=== PATIENT | male | born 1945 | race Caucasian/White ===

== ENCOUNTER 2016-12-25 14:13 | Inpatient (IN) | payer MEDICARE ==
[~2016-12-25] VITALS: Ht 172.7 cm; Wt 112.7 kg
[2016-12-25] MEDS ORDERED: DIPHTH/TETANUS/ACEL PERTUSSIS (BOOSTER) 0.5 ML VIAL/PFS IM ONE ×2 (14:21→14:45)
[2016-12-25] MEDS ORDERED: ceFAZolin 2 GM PREMIX 50 ML ONE (14:21)
[2016-12-25 14:29] VITALS: O2SAT 96
[2016-12-25 14:37] LABS: I-STAT POTASSIUM 3.8 MMOL/L (3.5-4.9)
[2016-12-25 14:40] LABS: AUTOMATED NEUTROPHIL # 10.3 TH/MM3 (1.8-7.7); BASOPHIL # 0.2 TH/MM3 (0-0.2); BASOPHIL % 1.2 % (0.0-2.0); EOSINOPHIL # 0.2 TH/MM3 (0-0.4); EOSINOPHIL % 1.2 % (0.0-4.0); HEMATOCRIT 43.1 % (39.0-51.0); HEMO FLAGS DIFF FINAL; LYMPH % 21.2 % (9.0-44.0); LYMPHOCYTE # 3.2 TH/MM3 (1.0-4.8); MEAN CELL VOLUME 94.4 FL (80.0-100.0); MEAN CORPUSCULAR HEMOGLOBIN 31.7 PG (27.0-34.0); MEAN CORPUSCULAR HGB CONC 33.6 % (32.0-36.0); MONO % 7.5 % (0.0-8.0); NEUT % 68.9 % (16.0-70.0); PLATELET COUNT 379 TH/MM3 (150-450); RED BLOOD COUNT 4.57 MIL/MM3 (4.50-5.90); RED CELL DISTRIBUTION WIDTH 14.1 % (11.6-17.2); WHITE BLOOD COUNT 14.9 TH/MM3 (4.0-11.0)
[2016-12-25] MEDS ORDERED: ceFAZolin 2 GM PREMIX 50 ML IV ONE (14:45)
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
[2016-12-25 14:49] LABS: APTT (PATIENT) 25.2 SEC (24.3-30.1); PROTHROMBIN TIME - PATIENT 10.6 SEC (9.8-11.6)
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
[2016-12-25] MEDS ORDERED: IOHEXOL 350 MG/ML 10 ML VIAL (for RAD DIAG) IV ONE (14:55)
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
[2016-12-25 15:00] VITALS: PULSE 67
[2016-12-25] MEDS ORDERED: CHLORHEXIDINE GLUCONATE 2 % 1 PACK (2 CLOTHS) TOP PRN (15:00)
[2016-12-25] MEDS ORDERED: SODIUM CHLORIDE 0.9% FLUSH 5 ML FLUSH IV FLUSH PRN (15:00)
[2016-12-25] MEDS ORDERED: MISCELLANEOUS NURSING INFORMATION XX SCH (15:00)
[2016-12-25] MEDS: SODIUM CHLORIDE 0.9% FLUSH 5 ML FLUSH IV FLUSH SCH ×2 (15:00→20:42)
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
[2016-12-25 16:00] VITALS: BP 151/8; PULSE 63; RESP 16; TEMP 98.1; O2SAT 100
[2016-12-25] MEDS: levETIRAcetam INJ 500 MG in SODIUM CHLORIDE 0.9% INJ 100 ML IV SCH ×2 (16:41→20:42)
[2016-12-25] MEDS: SODIUM CHLOR 0.9% 1000 ML INJ 1,000 ML IV SCH (16:41)
[2016-12-25] MEDS: PANTOPRAZOLE SODIUM 40 MG VIAL IV SCH (16:41)
[2016-12-25] MEDS: LIDOCAINE HCL 5% PATCH TD SCH (16:42)
[2016-12-25] MEDS ORDERED: MAGNESIUM HYDROXIDE SUSP 30 ML CUP PO PRN (17:15)
[2016-12-25] MEDS ORDERED: CALCIUM GLUCONATE INJ 1 GM in SODIUM CHLORIDE 0.9% INJ 100 ML IV PRN (17:15)
[2016-12-25] MEDS ORDERED: SODIUM CHLORIDE 0.9% FLUSH 5 ML FLUSH IVF PRN (17:15)
[2016-12-25] MEDS ORDERED: niCARdipine INJ 25 MG in SODIUM CHLOR 0.9% 250 ML INJ 250 ML IV SCH (17:15)
[2016-12-25] MEDS ORDERED: LORazepam 2 MG/ML VIAL IVP PRN (17:15)
[2016-12-25] MEDS ORDERED: MAGNESIUM SULFATE INJ 2 GM in SODIUM CHLORIDE 0.9% INJ 100 ML IV PRN (17:15)
[2016-12-25 18:00] VITALS: PULSE 63
[2016-12-25] MEDS ORDERED: BISACODYL 10 MG SUPP PR PRN (18:00)
[2016-12-25] MEDS ORDERED: cloNIDine HCL 0.1 MG TAB PO PRN (18:00)
[2016-12-25] MEDS ORDERED: ALUMINUM/MAGNESIUM/SIMETH 30 ML CUP PO PRN (18:00)
[2016-12-25] MEDS ORDERED: ONDANSETRON HCL 4 MG/2 ML VIAL IV PRN (18:00)
[2016-12-25] MEDS ORDERED: hydrALAZINE HCL 20 MG/ML VIAL IV PUSH PRN (18:30)
[2016-12-25] MEDS: LABETALOL HCL 100 MG/20 ML VIAL IV PRN ×2 (19:06→20:44)
[2016-12-25 20:00] VITALS: BP 159/78; PULSE 72; PULSE 75; RESP 20; TEMP 98.5; O2SAT 98
[2016-12-25] MEDS: SODIUM CHLORIDE 0.9% FLUSH 5 ML FLUSH IVF SCH (20:42)
[2016-12-25] MEDS: REMOVE OLD PATCH T-DERMAL SCH (20:43)
[2016-12-25] MEDS: MAGNESIUM HYDROXIDE SUSP 30 ML CUP PO SCH (20:43)
[2016-12-25] MEDS: DOCUSATE SODIUM 50 MG/SENNA 8.6 MG TAB PO SCH (20:43)
[2016-12-25] MEDS: BACITRACIN TOP OINT 15 GM TUBE TOP SCH (20:44)
[2016-12-25] MEDS ORDERED: DOCUSATE SODIUM 100 MG CAP PO SCH (21:00)
[2016-12-25] MEDS: METHOCARBAMOL 500 MG TAB PO SCH (21:36)
[2016-12-25 22:00] VITALS: PULSE 80
[2016-12-26] VITALS (13 sets, daily range): BP systolic 148–178; BP diastolic 76–94; PULSE 83–130; RESP 18–24; TEMP 98–99.6; O2SAT 94–97
[2016-12-26] MEDS: SODIUM CHLOR 0.9% 1000 ML INJ 1,000 ML IV SCH ×3 (00:23→20:04)
[2016-12-26] MEDS ORDERED: HALOPERIDOL LACTATE 5 MG/ML AMP IV ONE (02:45)
[2016-12-26] MEDS ORDERED: HALOPERIDOL LACTATE 5 MG/ML AMP IV PRN (03:00)
[2016-12-26] MEDS: CHLORHEXIDINE GLUCONATE 2 % 1 PACK (2 CLOTHS) TOP SCH (03:16)
[2016-12-26] MEDS: HALOPERIDOL LACTATE 5 MG/ML AMP IV PRN ×2 (04:33→20:04)
[2016-12-26 05:12] LABS: AUTOMATED NEUTROPHIL # 9.8 TH/MM3 (1.8-7.7); BASOPHIL % 0.3 % (0.0-2.0); HEMATOCRIT 37.8 % (39.0-51.0); HEMO FLAGS DIFF FINAL; LYMPH % 7.1 % (9.0-44.0); LYMPHOCYTE # 0.9 TH/MM3 (1.0-4.8); MEAN CELL VOLUME 93.3 FL (80.0-100.0); MEAN CORPUSCULAR HEMOGLOBIN 31.4 PG (27.0-34.0); MEAN CORPUSCULAR HGB CONC 33.7 % (32.0-36.0); MONO % 10.6 % (0.0-8.0); PLATELET COUNT 278 TH/MM3 (150-450); RED BLOOD COUNT 4.05 MIL/MM3 (4.50-5.90); RED CELL DISTRIBUTION WIDTH 13.8 % (11.6-17.2)
[2016-12-26] MEDS: METHOCARBAMOL 500 MG TAB PO SCH ×3 (05:17→20:05)
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
[2016-12-26 05:31] LABS: BICARBONATE 26.1 MEQ/L (21.0-32.0); POTASSIUM 3.5 MEQ/L (3.5-5.1)
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
[2016-12-26] MEDS: LACTULOSE SYRUP 20 GM/30 ML CUP PO SCH (09:00)
[2016-12-26] MEDS: DOCUSATE SODIUM 50 MG/SENNA 8.6 MG TAB PO SCH ×2 (09:00→20:05)
[2016-12-26] MEDS: SODIUM CHLORIDE 0.9% FLUSH 5 ML FLUSH IVF SCH ×2 (09:00→20:05)
[2016-12-26] MEDS: LIDOCAINE HCL 5% PATCH TD SCH (09:36)
[2016-12-26] MEDS: PANTOPRAZOLE SODIUM 40 MG VIAL IV SCH (09:37)
[2016-12-26] MEDS: SODIUM CHLORIDE 0.9% FLUSH 5 ML FLUSH IV FLUSH SCH ×2 (09:38→20:04)
[2016-12-26] MEDS: levETIRAcetam INJ 500 MG in SODIUM CHLORIDE 0.9% INJ 100 ML IV SCH ×2 (09:38→20:04)
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
[2016-12-26] MEDS: LABETALOL HCL 100 MG/20 ML VIAL IV PRN ×2 (10:30→17:09)
[2016-12-26] MEDS: BACITRACIN TOP OINT 15 GM TUBE TOP SCH ×2 (10:30→20:05)
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
[2016-12-26] MEDS ORDERED: DOXA1TAB35 PO (17:02)
[2016-12-26] MEDS ORDERED: GABA300C5 PO (17:02)
[2016-12-26] MEDS ORDERED: POTA-243 PO (17:03)
[2016-12-26] MEDS ORDERED: LISI20TA3 PO (17:03)
[2016-12-26] MEDS ORDERED: MIRTA15 PO (17:06)
[2016-12-26] MEDS ORDERED: METF500T PO (17:06)
[2016-12-26] MEDS ORDERED: METO200T3 PO (17:06)
[2016-12-26] MEDS ORDERED: OMEP40CA2 PO (17:07)
[2016-12-26] MEDS ORDERED: VENL150C39 PO (17:07)
[2016-12-26] MEDS ORDERED: ZETI10TA5 PO (17:08)
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
[2016-12-26] MEDS ORDERED: hydrALAZINE HCL 20 MG/ML VIAL IV PUSH SCH (18:00)
[2016-12-26] MEDS ORDERED: DEXTROSE 50% IN WATER 50 ML VIAL(D50) IV PUSH PRN (19:30)
[2016-12-26] MEDS ORDERED: GLUCAGON 1 MG/ML VIAL OTHER PRN (19:30)
[2016-12-26] MEDS: METOPROLOL TARTRATE 5 MG/5 ML VIAL IV PUSH SCH (20:04)
[2016-12-26] MEDS: MAGNESIUM HYDROXIDE SUSP 30 ML CUP PO SCH (20:05)
[2016-12-26] MEDS: INSULIN NovoLIN REGULAR SUPPLEMENTAL SCALE SQ SCH (21:00)
[2016-12-26] MEDS: hydrALAZINE HCL 20 MG/ML VIAL IV PUSH PRN (21:11)
[2016-12-26] MEDS: DEXMEDETOMIDINE 200 MCG/50 ML NS IV SCH (22:24)
[2016-12-26 22:27] LABS: BLOOD GAS BASE EXCESS 1.3 mmol/L (-2-2); BLOOD GAS CARBOXYHEMOGLOBIN 1.6 % (0-4); BLOOD GAS HCO3 24 mmol/L (22-26); BLOOD GAS METHEMOGLOBIN 0.9 % (0-2); BLOOD GAS O2 HGB SATURATION 92 % (90-100); BLOOD GAS OXYGEN CONTENT 16.8 Vol % (12.0-20.0); BLOOD GAS PCO2 31 mmHg (38-42); BLOOD GAS PO2 69 mmHg (61-120); BLOOD GAS TOTAL HGB 12.9 G/DL (12.0-16.0); TEMP CORR TO 98.6
[2016-12-26 22:29] LABS: CRITICAL VALUE YES; DRAW SITE LT RADIAL; FIO2 21 %; NUMBER OF ARTERIAL PUNCTURES 1; OXYGEN DEVICE ROOM AIR; STAT YES; ULNAR PULSE PRESENT
[2016-12-26] MEDS ORDERED: LORazepam 2 MG/ML VIAL IV PUSH ONE (23:15)
[2016-12-26] MEDS: REMOVE OLD PATCH T-DERMAL SCH (23:25)
[2016-12-26] MEDS ORDERED: DEXMEDETOMIDINE IV ONE (23:30)
[2016-12-26] MEDS ORDERED: LORazepam 2 MG/ML VIAL IV PUSH PRN (23:30)
[2016-12-27] VITALS (16 sets, daily range): BP systolic 91–122; BP diastolic 60–74; PULSE 74–130; RESP 14–28; TEMP 97.9–99.1; O2SAT 93–100
[2016-12-27] MEDS: DEXMEDETOMIDINE 200 MCG/50 ML NS IV SCH ×2 (00:55→05:06)
[2016-12-27] MEDS: METOPROLOL TARTRATE 5 MG/5 ML VIAL IV PUSH SCH ×7 (01:05→20:00)
[2016-12-27] MEDS ORDERED: LORazepam 2 MG/ML VIAL IV PRN (01:45)
[2016-12-27] MEDS ORDERED: DILTIAZEM HCL 25 MG/5 ML VIAL IV ONE (01:45)
[2016-12-27] MEDS: CHLORHEXIDINE GLUCONATE 2 % 1 PACK (2 CLOTHS) TOP SCH (05:20)
[2016-12-27] MEDS: METHOCARBAMOL 500 MG TAB PO SCH ×3 (05:20→20:58)
[2016-12-27 06:17] LABS: BASOPHIL % 0.2 % (0.0-2.0); HEMATOCRIT 35.1 % (39.0-51.0); HEMO FLAGS DIFF FINAL; LYMPHOCYTE # 0.9 TH/MM3 (1.0-4.8); MEAN CELL VOLUME 93.8 FL (80.0-100.0); MEAN CORPUSCULAR HEMOGLOBIN 31.4 PG (27.0-34.0); MEAN CORPUSCULAR HGB CONC 33.5 % (32.0-36.0); MONO % 12.5 % (0.0-8.0); NEUT % 79.3 % (16.0-70.0); PLATELET COUNT 192 TH/MM3 (150-450); RED BLOOD COUNT 3.75 MIL/MM3 (4.50-5.90); WHITE BLOOD COUNT 11.3 TH/MM3 (4.0-11.0)
[2016-12-27] MEDS: SODIUM CHLOR 0.9% 1000 ML INJ 1,000 ML IV SCH (06:50)
[2016-12-27 06:53] LABS: ALKALINE PHOSPHATASE 59 U/L (45-117); ALT (GPT) 25 U/L (12-78); ANION GAP 9 MEQ/L (5-15); AST (GOT) 41 U/L (15-37); BICARBONATE 30.5 MEQ/L (21.0-32.0); BLOOD UREA NITROGEN 16 MG/DL (7-18); CHLORIDE 103 MEQ/L (98-107); GLOMERULAR FILTRATION RATE 74 ML/MIN (>89); MAGNESIUM 1.6 MG/DL (1.5-2.5); POTASSIUM 3.3 MEQ/L (3.5-5.1); SODIUM (NA) 142 MEQ/L (136-145)
[2016-12-27] MEDS: INSULIN NovoLIN REGULAR SUPPLEMENTAL SCALE SQ SCH ×6 (07:00→21:00)
[2016-12-27] MEDS ORDERED: DEXMEDETOMIDINE INJ 1,000 MCG in SODIUM CHLOR 0.9% 250 ML INJ 250 ML IV SCH (07:27)
--- NOTE | 2016-12-27 07:27 | RADRPT ---
EXAM DATE/TIME: 12/27/2016 04:40 [facility] COMPARISON: CHEST SINGLE AP, December 25, 2016, 14:09. INDICATIONS : Shortness of breath. MEDICAL HISTORY : None. SURGICAL HISTORY : None. ENCOUNTER: Subsequent ACUITY: 2 days PAIN SCORE: Non-responsive. LOCATION: Bilateral chest FINDINGS: Multiple left rib fractures noted with small extrapleural hematoma. Minimal basilar opacity. No pneum othorax. Heart size normal. CONCLUSION: 1. Multiple rib fracture is with small extrapleural hematoma on the left. No pneumothorax or signific ant effusion. Ori Mathis MD on December 27, 2016 at 7:25 Board Certified Radiologist. This report was verified electronically.
[2016-12-27] MEDS: POTASSIUM CHLOR 20 MEQ PREMIX 100 ML IV PRN (07:42)
[2016-12-27] MEDS: BACITRACIN TOP OINT 15 GM TUBE TOP SCH ×2 (09:00→21:00)
[2016-12-27] MEDS: DOCUSATE SODIUM 50 MG/SENNA 8.6 MG TAB PO SCH ×2 (09:00→21:00)
[2016-12-27] MEDS: SODIUM CHLORIDE 0.9% FLUSH 5 ML FLUSH IVF SCH ×2 (09:00→20:58)
[2016-12-27] MEDS: levETIRAcetam INJ 500 MG in SODIUM CHLORIDE 0.9% INJ 100 ML IV SCH ×2 (09:00→21:00)
[2016-12-27 09:02] LABS: BLOOD GAS BASE EXCESS 4.6 mmol/L (-2-2); BLOOD GAS CARBOXYHEMOGLOBIN 1.8 % (0-4); BLOOD GAS HCO3 28 mmol/L (22-26); BLOOD GAS METHEMOGLOBIN 0.8 % (0-2); BLOOD GAS O2 HGB SATURATION 93 % (90-100); BLOOD GAS OXYGEN CONTENT 14.9 Vol % (12.0-20.0); BLOOD GAS PCO2 40 mmHg (38-42); BLOOD GAS PO2 74 mmHg (61-120); BLOOD GAS TOTAL HGB 11.4 G/DL (12.0-16.0); CRITICAL VALUE NO; DRAW SITE RT RADIAL; LITER FLOW 4 L/M; NUMBER OF ARTERIAL PUNCTURES 1; OXYGEN DEVICE NASAL CANNULA; STAT YES; TEMP CORR TO 98.6; ULNAR PULSE PRESENT
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
[2016-12-27] MEDS: PANTOPRAZOLE SODIUM 40 MG VIAL IV SCH (09:38)
[2016-12-27] MEDS: SODIUM CHLORIDE 0.9% FLUSH 5 ML FLUSH IV FLUSH SCH (09:39)
[2016-12-27] MEDS ORDERED: MULTIVITAMIN INJ 10 ML, THIAMINE INJ 100 MG, FOLIC ACID INJ 1 MG in SODIUM CHLORID 0.9%... IV ONE (10:15)
[2016-12-27] MEDS: LIDOCAINE HCL 5% PATCH TD SCH (10:24)
[2016-12-27] MEDS ORDERED: ROCURONIUM INJ 50 MG/5 ML VIAL ONE (11:19)
[2016-12-27] MEDS ORDERED: ETOMIDATE 20 MG/10 ML VIAL ONE (11:19)
[2016-12-27] MEDS ORDERED: PROPOFOL 1000 MG/100 ML INJ 100 ML ONE (11:22)
[2016-12-27] MEDS ORDERED: AMIODARONE INJ 150 MG in DEXTROSE 5% IN WATER 100ML INJ 97 ML IV ONE ×2 (11:30)
[2016-12-27] MEDS ORDERED: ROCURONIUM INJ 50 MG/5 ML VIAL IV ONE (11:30)
[2016-12-27] MEDS ORDERED: ETOMIDATE 20 MG/10 ML VIAL IV PUSH ONE (11:30)
[2016-12-27] MEDS ORDERED: PROPOFOL 1000 MG/100 ML INJ 100 ML IV SCH (11:30)
[2016-12-27] MEDS ORDERED: AMIODARONE INJ 450 MG in DEXTROSE 5% IN WATE(EXCEL) INJ 250 ML IV SCH ×2 (11:30)
[2016-12-27] MEDS ORDERED: PHENYLEPHRINE HCL 10 MG/ML VIAL ONE (12:01)
--- NOTE | 2016-12-27 12:12 | PD.PROCEDR ---
Central Line Procedure REASON FOR PROCEDURE Central venous access PROCEDURE PERFORMED Central line placement: Left internal jugular vein CONSENT Informed consent for procedure was not obtained as considered emergent due to hypotension and need for IV access. The risks and benefits of the procedure were discussed to include but limited to bleeding, clot formation, infection, and even . ANESTHESIA Local injection of 1% Lidocaine DESCRIPTION OF THE PROCEDURE The patient was placed in supine, mild Trendelenburg position. The area was exposed and cleansed with ChloraPrep, times two. Large sterile drape was used to cover the patient, with the site exposed, under sterile conditions including cap, face mask, sterile gown, and sterile gloves. On single attempt, the introducer needle was inserted with negative pressure in syringe and venous flash was obtained. The guide wire was then advanced without any restriction and the needle was removed. The dilator was used without any complications. Using Seldinger technique the triple-lumen catheter was advanced over the guide wire to a depth of 20 centimeters. The guide wire was removed. All ports were aspirated with dark venous blood return and flushed easily with sterile saline. All ports were capped. Antibiotic disc was placed around central line at puncture site. The central line was secured to the skin with two interrupted 2.0 silk sutures. The area was bandaged with sterile see-through central line bandage. RADIOLOGICAL DATA Ultrasound guidance was used to locate left internal jugular vein. Doppler/ color flow was used to confirm venous flow. COMPLICATIONS: No apparent complications ESTIMATED BLOOD LOSS: Less than 1 cc. Alex Ferrari MD Dec 27, 2016 12:12
--- NOTE | 2016-12-27 12:13 | PD.PROCEDR ---
Procedure Note Procedure DATE: 12/27/2016 PROCEDURE: Orotracheal intubation INDICATION: Acute respiratory failure DETAILS OF PROCEDURE The patient was placed in optimal position and preoxygenated with 100% FiO2 via bag valve mask. At the start oxygen saturation was 100%. The patient was administered 20 mg etomidate IV and 50 mg rocuronium IV. I entered the oropharynx with a size 4 GVL glidescope blade and obtained a grade 3 view of the airway. On single attempt a size 8.0 cuffed endotracheal tube was passed through the vocal cords. Correct tube location was confirmed with end tidal CO2 detector and by auscultating over bilateral lung jarrett. The endotracheal tube was secured with adhesive tape at a depth of 24 cm at the lips. The patient was connected to the ventilator. The patient tolerated the procedure well without any apparent complications. Oxygen saturations were maintained greater than 95% all times. STAT chest x-ray pending at time of dictation. Alex Ferrari MD Dec 27, 2016 12:13
[2016-12-27] MEDS ORDERED: MAGNESIUM SULFATE INJ 2 GM in SODIUM CHLORIDE 0.9% INJ 96 ML IV PRN (12:15)
[2016-12-27] MEDS ORDERED: POTASSIUM PHOSPHATE MONOBASIC 500 MG TAB PO/TUBE PRN (12:15)
[2016-12-27] MEDS ORDERED: MAGNESIUM OXIDE 400 MG TAB PO PRN (12:15)
[2016-12-27] MEDS ORDERED: POTASSIUM CHLOR 20 MEQ PREMIX 100 ML IV PRN ×2 (12:15)
[2016-12-27] MEDS ORDERED: POTASSIUM CHLOR 40 MEQ PREMIX 100 ML IV PRN (12:15)
[2016-12-27] MEDS ORDERED: POTASSIUM PHOSPHATE MONOBASIC 500 MG TAB PO PRN (12:15)
[2016-12-27] MEDS ORDERED: SODIUM PHOSPHATE INJ 30 MMOL in SODIUM CHLOR 0.9% 250 ML INJ 240 ML IV PRN (12:15)
[2016-12-27] MEDS ORDERED: SODIUM CHLORIDE 0.9% FLUSH 5 ML FLUSH IVF PRN (12:15)
[2016-12-27] MEDS ORDERED: MAGNESIUM SULFATE INJ 4 GM in SODIUM CHLORIDE 0.9% INJ 92 ML IV PRN (12:15)
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
[2016-12-27] MEDS ORDERED: POTASSIUM CHLORIDE INJ 40 MEQ in SODIUM CHLORID 0.9% 500 ML INJ 500 ML IV-CENTRAL ONE ×2 (12:30→17:00)
--- NOTE | 2016-12-27 12:35 | RADRPT ---
EXAM DATE/TIME: 12/27/2016 12:08 [place] COMPARISON: CHEST SINGLE AP, December 27, 2016, 4:40. INDICATIONS : Status Post Central Line Placement and Intubation. MEDICAL HISTORY : Unobtainable. SURGICAL HISTORY : Unobtainable. ENCOUNTER: Initial ACUITY: 1 day PAIN SCORE: Non-responsive. LOCATION: Bilateral chest FINDINGS: A single view of the chest demonstrates the lungs to be symmetrically aerated without evidence of mas s, infiltrate or effusion. The endotracheal tube and left-sided central line appear to be in good po sition. There is no pneumothorax. The cardiomediastinal contours are unremarkable. Osseous structure s are intact. CONCLUSION: 1. ET tube and left central line in good position. 2. No pneumothorax. Azeem Clay MD on December 27, 2016 at 12:33 Board Certified Radiologist. This report was verified electronically.
[2016-12-27] MEDS ORDERED: TERBUTALINE INJ 1 MG/ML AMP SQ PRN ×2 (13:00→22:15)
[2016-12-27] MEDS ORDERED: DEXTROSE 50% IN WATER 50 ML VIAL(D50) IV PUSH PRN (13:00)
[2016-12-27] MEDS ORDERED: GLUCAGON 1 MG/ML VIAL OTHER PRN (13:00)
[2016-12-27] MEDS: MAGNESIUM SULFATE 1 GM PREMIX 100 ML IV SCH ×2 (13:40→16:04)
--- NOTE | 2016-12-27 14:35 | EKG ---
Date Performed: 12/27/2016 Time Performed: 08:38:08 PTAGE: 71 years EKG: Atrial flutter with rapid ventricular response Nonspecific ST-T wave changes Abnormal ECG C ompared to prior electrocardiogram,Rate has increased and atrial flutter appears to have replaced atr ial fibrillation. PREVIOUS TRACING : 12/27/2016 01.30 DOCTOR: Jd Bustos Interpretating Date/Time 12/27/2016 14:34:22
--- NOTE | 2016-12-27 14:36 | EKG ---
Date Performed: 12/27/2016 Time Performed: 01:30:00 PTAGE: 71 years EKG: Atrial fibrillation with rapid ventricular response . Nonspecific ST-T wave changes Abnorma l ECG NO PREVIOUS TRACING DOCTOR: Jd Bustos Interpretating Date/Time 12/27/2016 14:34:53
[2016-12-27] MEDS: THIAMINE INJ 100 MG in SODIUM CHLORIDE 0.9% INJ 100 ML IV SCH (15:08)
[2016-12-27 15:11] LABS: BLOOD GAS BASE EXCESS 0.6 mmol/L (-2-2); BLOOD GAS CARBOXYHEMOGLOBIN 1.4 % (0-4); BLOOD GAS HCO3 25 mmol/L (22-26); BLOOD GAS METHEMOGLOBIN 0.8 % (0-2); BLOOD GAS O2 HGB SATURATION 88 % (90-100); BLOOD GAS OXYGEN CONTENT 14.6 Vol % (12.0-20.0); BLOOD GAS PCO2 44 mmHg (38-42); BLOOD GAS PO2 62 mmHg (61-120); BLOOD GAS TOTAL HGB 11.7 G/DL (12.0-16.0); CRITICAL VALUE YES; TEMP CORR TO 98.6
[2016-12-27 15:12] LABS: FIO2 40 %; OXYGEN DEVICE VENTILATOR; VENT SETTINGS PRVC/AC
[2016-12-27 15:13] LABS: DRAW SITE RT RADIAL; NUMBER OF ARTERIAL PUNCTURES 1; STAT NO; ULNAR PULSE PRESENT
[2016-12-27] MEDS: PIPERACIL-TAZO 4.5 GM PREMIX 100 ML IV SCH ×2 (16:04→22:00)
[2016-12-27] MEDS: fentaNYL DRIP 250 ML IV SCH (16:18)
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
[2016-12-27] MEDS: RESP: ALBUTEROL 2.5 MG/IPRATROPIUM 0.5 MG NEB (SCH) NEB (19:44)
[2016-12-27] MEDS: RESP: SODIUM CHLORIDE 3% 4 ML NEB NEB SCH (19:44)
[2016-12-27] MEDS: CHLORHEXIDINE 0.12% (ORAL KIT) 15 ML CUP MT SCH (20:00)
[2016-12-27] MEDS: MAGNESIUM HYDROXIDE SUSP 30 ML CUP PO SCH (20:58)
[2016-12-27] MEDS: REMOVE OLD PATCH T-DERMAL SCH (21:00)
[2016-12-27 21:31] LABS: POTASSIUM 4.4 MEQ/L (3.5-5.1)
[2016-12-27] MEDS ORDERED: Vancomycin Consult Pharmacy 1 EA OTHER SCH (22:00)
[2016-12-27] MEDS ORDERED: SODIUM CHLOR 0.9% 1000 ML INJ 1,000 ML IV ONE (22:00)
[2016-12-27] MEDS ORDERED: VANCOMYCIN 1,000 MG/NS 250 ML IV ONE ×2 (22:15)
[2016-12-27] MEDS ORDERED: NOREPINEPHRINE-DEXTROSE DRIP 250 ML IV SCH (22:15)
--- NOTE | 2016-12-27 23:18 | PD.PROCEDR ---
Procedure Note Procedure DATE: 12/27/2016 Arterial LINE PLACEMENT: Left femoral artery ultrasound-guided INDICATION: Hemodynamic access DESCRIPTION OF THE PROCEDURE The patient was placed in supine position. The skin was cleansed with Chloraprep. Additional barrier precautions included large sterile drape, sterile gloves, sterile gown, face mask, and hat. 1 % lidocaine was used for local anesthesia. Under direct ultrasound guidance and on [] attempt, the vein was accessed with an introducer needle. The guide wire was advanced Using Seldinger technique a 20 [place] 12 cm Angiocath was advanced to a depth of 12 centimeters. The guide wire was removed. The port had return of bright red blood and flushed easily with saline. The arterial line was secured with 2.0 silk. A sterile dressing with antibiotic disc was applied. ESTIMATED BLOOD LOSS: Minimal COMPLICATIONS: No apparent complications. Alex Ferrari MD Dec 27, 2016 23:18
[2016-12-27] MEDS ORDERED: IOHEXOL 350 MG/ML 10 ML VIAL (for RAD DIAG) IV ONE (23:51)
[2016-12-28] VITALS (20 sets, daily range): BP systolic 101–155; BP diastolic 60–79; PULSE 60–155; RESP 22–26; TEMP 98.1–99.8; O2SAT 94–100
[2016-12-28] MEDS: METOPROLOL TARTRATE 5 MG/5 ML VIAL IV PUSH SCH
--- NOTE | 2016-12-28 00:17 | RADRPT ---
EXAM DATE/TIME: 12/27/2016 23:52 [facility] COMPARISON: CT BRAIN W/O CONTRAST, December 26, 2016, 4:55. INDICATIONS : Mental status change. RADIATION DOSE: 56.35 CTDIvol (mGy) MEDICAL HISTORY : Non-responsive. SURGICAL HISTORY : Non-responsive. ENCOUNTER: Subsequent ACUITY: 3 days PAIN SCALE: Non-responsive LOCATION: cranial TECHNIQUE: Multiple contiguous axial images were obtained of the head. Using automated exposure control and adj ustment of the mA and/or kV according to patient size, radiation dose was kept as low as reasonably a chievable to obtain optimal diagnostic quality images. FINDINGS: Compare December 26. There is a new 12 mm hemorrhage in the right temporal region. Evolving parenchymal contusions are present in the left posterior frontal region. Small left subdural hematoma is relative ly stable. Scattered subarachnoid hemorrhage is relatively stable. There is some new hemorrhage layin g dependently in the occipital horns of both lateral ventricles. No significant new mass effect or mi dline shift. CONCLUSION: 1. Compare with December 26. There is new intra-ventricular hemorrhage laying posteriorly in the occipit al horns of the lateral ventricles. There is also a new 12 mm hemorrhage in the right middle cranial fossa. Evolving left frontal parenchymal contusions, subarachnoid hemorrhage and small left subdural hemorrhage again noted without new mass effect or shift. Ori Mathis MD on December 28, 2016 at 0:12 Board Certified Radiologist. This report was verified electronically.
[2016-12-28 00:33] LABS: BLOOD GAS BASE EXCESS -1.2 mmol/L (-2-2); BLOOD GAS CARBOXYHEMOGLOBIN 1.1 % (0-4); BLOOD GAS HCO3 24 mmol/L (22-26); BLOOD GAS METHEMOGLOBIN 0.6 % (0-2); BLOOD GAS O2 HGB SATURATION 95 % (90-100); BLOOD GAS OXYGEN CONTENT 16.4 Vol % (12.0-20.0); BLOOD GAS PCO2 46 mmHg (38-42); BLOOD GAS PO2 86 mmHG (61-120); BLOOD GAS TOTAL HGB 12.2 G/DL (12.0-16.0); TEMP CORR TO 98.6
[2016-12-28 00:34] LABS: CRITICAL VALUE NO; DRAW SITE ART LINE; FIO2 60 %; OXYGEN DEVICE VENTILATOR; STAT YES; VENT SETTINGS PRVC/AC
[2016-12-28] MEDS ORDERED: 3% SALINE INJ 500 ML IV SCH ×2 (00:45→09:59)
--- NOTE | 2016-12-28 01:38 | RADRPT ---
EXAM DATE/TIME: 12/27/2016 23:51 [facility] COMPARISON: No previous studies available for comparison. INDICATIONS : Change in mental status. IV CONTRAST: 95 cc Omnipaque 350 (iohexol) IV ; Cumulative dose for multiple exams. RADIATION DOSE: 17.4 CTDIvol (mGy) ; Combined studies MEDICAL HISTORY : Non-responsive. SURGICAL HISTORY : Non-responsive. ENCOUNTER: Subsequent ACUITY: 3 days PAIN SCALE: Non-responsive LOCATION: cranial TECHNIQUE: Volumetric scanning was performed using a multi-row detector CT scanner. The data was post processed with a variety of visualization algorithms including full volume maximum intensity projection, multi -planar sliding thin slab reformation, curved planar reformation, and surface rendering techniques. Using automated exposure control and adjustment of the mA and/or kV according to patient size, radiat ion dose was kept as low as reasonably achievable to obtain optimal diagnostic quality images. FINDINGS: There is excellent visualization of the major intracranial arteries out to the second-order branch ve ssels. There is no evidence for aneurysm, vessel truncation or stenosis, and no evidence for vascula r malformation. Patient is intubated with endotracheal tube in satisfactory position. NG also present. Right pleural effusion noted incidentally. Mild emphysema in the upper lungs. See head CT for findings of intracran ial hemorrhage. CONCLUSION: 1. No aneurysm or arterial vascular occlusions identified. There is intracranial hemorrhage. See rece nt head CT. Ori Mathis MD on December 28, 2016 at 1:31 Board Certified Radiologist. This report was verified electronically.
[2016-12-28 01:40] LABS: AUTOMATED NEUTROPHIL # 15.1 TH/MM3 (1.8-7.7); BASOPHIL # 0.1 TH/MM3 (0-0.2); BASOPHIL % 0.8 % (0.0-2.0); EOSINOPHIL % 0.1 % (0.0-4.0); HEMATOCRIT 33.6 % (39.0-51.0); HEMO FLAGS DIFF FINAL; LYMPH % 6.5 % (9.0-44.0); LYMPHOCYTE # 1.2 TH/MM3 (1.0-4.8); MEAN CELL VOLUME 94.5 FL (80.0-100.0); MEAN CORPUSCULAR HEMOGLOBIN 31.4 PG (27.0-34.0); MEAN CORPUSCULAR HGB CONC 33.3 % (32.0-36.0); MONO % 10.7 % (0.0-8.0); NEUT % 81.9 % (16.0-70.0); PLATELET COUNT 266 TH/MM3 (150-450); RED BLOOD COUNT 3.55 MIL/MM3 (4.50-5.90); WHITE BLOOD COUNT 18.5 TH/MM3 (4.0-11.0)
--- NOTE | 2016-12-28 01:43 | RADRPT ---
EXAM DATE/TIME: 12/27/2016 23:51 [facility] COMPARISON: No previous studies available for comparison. INDICATIONS : Change in mental status. IV CONTRAST: 95 cc Omnipaque 350 (iohexol) IV ; Cumulative dose for multiple exams. RADIATION DOSE: 17.4 CTDIvol (mGy) ; Combined studies MEDICAL HISTORY : Non-responsive. SURGICAL HISTORY : Non-responsive. ENCOUNTER: Subsequent ACUITY: 3 days PAIN SCALE: Non-responsive LOCATION: neck Elevated flow velocities and ICA/CCA ratios have been found to correlate with increased degrees of vessel stenosis, calculated as percentage of diameter relative to a normal segment of distal ICA/CCA. TECHNIQUE: Volumetric scanning was performed using a multirow detector CT scanner. The data was post processed with a variety of visualization algorithms including full-volume maximum intensity projection, multip lanar sliding thin-slab reformation, curved-planar reformation, and surface-rendering techniques. Us ing automated exposure control and adjustment of the mA and/or kV according to patient size, radiatio n dose was kept as low as reasonably achievable to obtain optimal diagnostic quality images. FINDINGS: There is mild atherosclerotic changes in the carotid arteries bilaterally, predominantly around carot id bifurcation. There is no carotid stenosis. Both vertebral arteries are patent in the neck. The rig ht internal carotid artery is tortuous and passes medially to the midline retropharyngeal region. Pat ient is intubated with NG tube present. There is a small right-sided pleural effusion in apex. Left-sided central line is present. CONCLUSION: 1. Mild carotid atherosclerosis. No carotid stenosis. Vertebral arteries patent in the neck. Ori Mathis MD on December 28, 2016 at 1:39 Board Certified Radiologist. This report was verified electronically.
[2016-12-28] MEDS: CHLORHEXIDINE GLUCONATE 2 % 1 PACK (2 CLOTHS) TOP SCH (02:01)
[2016-12-28] MEDS: METHOCARBAMOL 500 MG TAB PO SCH ×3 (02:27→23:16)
[2016-12-28] MEDS: SODIUM CHLOR 0.9% 1000 ML INJ 1,000 ML IV SCH ×3 (02:28→23:17)
[2016-12-28 02:45] LABS: BICARBONATE 25.1 MEQ/L (21.0-32.0); CALCIUM-PROTEIN CORRECTED 8.1 MG/DL (8.5-10.1); MAGNESIUM 2.1 MG/DL (1.5-2.5); POTASSIUM 3.9 MEQ/L (3.5-5.1)
[2016-12-28] MEDS: RESP: ALBUTEROL 2.5 MG/IPRATROPIUM 0.5 MG NEB (SCH) NEB ×4 (04:49→21:02)
[2016-12-28] MEDS: RESP: SODIUM CHLORIDE 3% 4 ML NEB NEB SCH ×5 (04:49→21:02)
[2016-12-28 05:58] LABS: BLOOD GAS CARBOXYHEMOGLOBIN 1.4 % (0-4); BLOOD GAS HCO3 22 mmol/L (22-26); BLOOD GAS O2 HGB SATURATION 97 % (90-100); BLOOD GAS OXYGEN CONTENT 15.7 Vol % (12.0-20.0); BLOOD GAS PCO2 34 mmHg (38-42); BLOOD GAS PO2 167 mmHg (61-120); BLOOD GAS TOTAL HGB 11.3 G/DL (12.0-16.0); CRITICAL VALUE NO; DRAW SITE ART LINE; FIO2 60 %; OXYGEN DEVICE VENTILATOR; STAT NO; TEMP CORR TO 98.6; VENT SETTINGS PRVC/AC
[2016-12-28] MEDS: PIPERACIL-TAZO 4.5 GM PREMIX 100 ML IV SCH ×3 (06:00→22:29)
[2016-12-28] MEDS: INSULIN NovoLIN REGULAR SUPPLEMENTAL SCALE SQ SCH ×5 (06:08→21:00)
--- NOTE | 2016-12-28 06:33 | RADRPT ---
EXAM DATE/TIME: 12/28/2016 05:02 [facility] COMPARISON: CHEST SINGLE AP, December 27, 2016, 12:08. INDICATIONS : Shortness of breath. MEDICAL HISTORY : None. SURGICAL HISTORY : None. ENCOUNTER: Subsequent ACUITY: 4 - 6 days PAIN SCORE: Non-responsive. LOCATION: Bilateral chest FINDINGS: Endotracheal tube has been positioned. NG enters stomach. A left central line in superior vena cava. Mild cardiomegaly. Basilar airspace disease increased from December 27. CONCLUSION: 1. Increase in basilar airspace disease from December 27 with small pleural effusions. Placement of naso gastric tube with tip in stomach. Endotracheal tube and left central line unchanged. Ori Mathis MD on December 28, 2016 at 6:30 Board Certified Radiologist. This report was verified electronically.
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
[2016-12-28] MEDS: THIAMINE INJ 100 MG in SODIUM CHLORIDE 0.9% INJ 100 ML IV SCH (09:00)
[2016-12-28] MEDS: LACTULOSE SYRUP 20 GM/30 ML CUP PO SCH (09:00)
[2016-12-28] MEDS: LIDOCAINE HCL 5% PATCH TD SCH (09:00)
[2016-12-28] MEDS: BACITRACIN TOP OINT 15 GM TUBE TOP SCH ×2 (09:00→21:00)
[2016-12-28] MEDS: BISACODYL 10 MG SUPP RECTAL SCH ×2 (09:00→10:51)
[2016-12-28] MEDS ORDERED: POTASSIUM PHOSPHATE INJ 30 MMOL in SODIUM CHLOR 0.9% 250 ML INJ 250 ML IV ONE (10:00)
[2016-12-28] MEDS ORDERED: MINERAL OIL LIQUID 30 ML CUP PO ONE (10:00)
[2016-12-28] MEDS ORDERED: ROCURONIUM INJ 100 MG/10 ML VIAL IV ONE (10:00)
[2016-12-28] MEDS ORDERED: GLYCERIN ADULT 2 GM SUPP RECTAL PRN (10:00)
[2016-12-28] MEDS ORDERED: MIDAZOLAM HCL 5 MG/ML VIAL (1 ML) IV PUSH ONE (10:00)
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
[2016-12-28] MEDS ORDERED: ROCURONIUM INJ 50 MG/5 ML VIAL ONE (10:11)
--- NOTE | 2016-12-28 10:34 | PD.PROCEDR ---
Procedure Note Procedure DATE: 12/27/2016 Fiberoptic bronchoscopy: INDICATION: Acute hypoxemia CONSENT Informed consent for procedure was not obtained from family as this was considered an emergent event. DESCRIPTION OF THE PROCEDURE The patient was placed at 30. Ventilator was using PRVC ventilation with FiO2 100%. Patient was anesthetized using propofol at 50 mcg/kg/m, and a fentanyl drip at 150 g an hour. Paralytic provider was rocuronium and 50 mg IV 1. I entered the 8.0 ET tube with fiberoptic bronchoscope. The ETT tube was coated with thick white secretions. The bronchoscope was advanced to the caty which was sharp. It was then advanced to the left mainstem and its subsegments segments, large thick white mucous plug in the left mainstem. This was suctioned with copious amounts of sterile saline. Left upper lingula and lower lobe were visualized. The mucosa was normal. This again was suctioned with copious amounts of sterile saline with thick white secretions. There is most most thick white secretions in these second and third sub segments which were all suctioned to clear with sterile saline. There were no other findings including evidence of mass, anatomic distortions or hemorrhage. The bronchoscope was subsequently withdrawn and advanced into the right mainstem. Each segment was evaluated and were well visualized. The right upper lobe anatomy was within normal limits. No specific masses or other lesions were identified throughout the tracheobronchial tree on the right. The bronchoscope was then advanced to the bronchus intermedius to the right middle and right lower lobe. No lesions were identified. Wedged in the right middle lobe and 30 cc of sterile saline lavage white mucous plugs easily. Lavaging was also performed throughout the right lower lobe. Again mucosa was normal. Scope was withdrawn and procedure was halted. Saturations remain between 98 and 100% throughout the procedure. ESTIMATED BLOOD LOSS: Minimal COMPLICATIONS: No apparent complications. Alex Ferrari MD Dec 28, 2016 10:34
[2016-12-28] MEDS ORDERED: POTASSIUM CHLOR 20 MEQ PREMIX 100 ML IV ONE (10:45)
[2016-12-28] MEDS ORDERED: Vancomycin Consult Pharmacy 1 EA OTHER SCH (10:45)
[2016-12-28] MEDS: SODIUM CHLORIDE 0.9% FLUSH 5 ML FLUSH IVF SCH ×3 (10:51→21:00)
[2016-12-28] MEDS: FOLIC ACID 1 MG TAB PEG SCH (10:51)
[2016-12-28] MEDS: MULTIVITAMIN TAB PEG SCH (10:51)
[2016-12-28] MEDS: DOCUSATE SODIUM 50 MG/SENNA 8.6 MG TAB PO SCH ×2 (10:51→22:30)
[2016-12-28] MEDS: CHLORHEXIDINE 0.12% (ORAL KIT) 15 ML CUP MT SCH ×2 (10:52→20:54)
[2016-12-28] MEDS: PANTOPRAZOLE SODIUM 40 MG VIAL IV SCH (10:52)
[2016-12-28] MEDS: levETIRAcetam INJ 500 MG in SODIUM CHLORIDE 0.9% INJ 100 ML IV SCH ×2 (10:52→20:55)
[2016-12-28] MEDS: PROPOFOL 1000 MG/100 ML INJ 100 ML IV SCH ×4 (10:53→20:55)
[2016-12-28] MEDS: fentaNYL DRIP 250 ML IV SCH ×2 (10:54→22:47)
[2016-12-28] MEDS ORDERED: METHYLNALTREXONE BROMIDE 12 MG/0.6 ML VIAL SQ ONE (11:00)
[2016-12-28] MEDS: MAGNESIUM SULFATE 1 GM PREMIX 100 ML IV SCH ×2 (11:00→12:00)
--- NOTE | 2016-12-28 11:39 | RADRPT ---
EXAM DATE/TIME: 12/28/2016 10:47 [facility] COMPARISON: CHEST SINGLE AP, December 28, 2016, 5:02. INDICATIONS : Status post bronchoscopy. MEDICAL HISTORY : None. SURGICAL HISTORY : None. ENCOUNTER: Initial ACUITY: 1 day PAIN SCORE: Non-responsive. LOCATION: Bilateral chest FINDINGS: A single view of the chest demonstrates cardiomegaly with small bilateral effusions. Increased pulmon rickey vascularity. Endotracheal tube, nasogastric tube and left jugular central line in stable position . Multiple bilateral rib fractures again seen. CONCLUSION: Cardiomegaly with small bilateral pleural effusions. No pneumothorax. Aamir Diamond MD on December 28, 2016 at 11:36 Board Certified Radiologist. This report was verified electronically.
[2016-12-28] MEDS: VANCOMYCIN INJ 1,400 MG in SODIUM CHLORID 0.9% 500 ML INJ 500 ML IV SCH (14:00)
[2016-12-28 14:37] LABS: BRONCHOAVEOLAR LYMPHOCYTES 6 %; BRONCHOAVEOLAR NEUTROPHILS 94 %
[2016-12-28] MEDS: PHENYLEPHRINE INJ 40 MG in DEXTROSE 5% IN WATE 500 ML INJ 496 ML IV SCH ×4 (14:38→22:29)
[2016-12-28 14:39] LABS: BRONCHOALVEOLAR LAVAGE WBC 4430 /MM3; LAVAGE TOTAL WBC COUNT 14.1 MILLION (4.7-7.1)
[2016-12-28 14:40] LABS: BRONCHOALVEOLAR LAVAGE RBC 3080 /MM3
--- NOTE | 2016-12-28 15:42 | EC ---
Study Study Date:12/28/2016 STUDY CONCLUSIONS SUMMARY - Left ventricle: The cavity size was normal. Wall thickness was increased in a pattern of mild LVH. Systolic function was normal. The estimated ejection fraction was in the range of 55% to 60%. Wall motion was normal; there were no regional wall motion abnormalities. - Tricuspid valve: Mild regurgitation. - Pulmonary arteries: Systolic pressure was mildly increased. - Pericardium, extracardiac: A small pericardial effusion was identified. If LV function is below 40, please consider prescribing an ACEI or ARB or document rationale for non-use. PROCEDURE DATA STUDY STATUS: Elective. Procedure: Transthoracic echocardiography. Image quality was suboptimal. Scanning was performed from the parasternal, apical, and subcostal acoustic windows. Study completion: The patient tolerated the procedure well. Transthoracic echocardiography. M-mode, complete 2D, complete spectral Doppler, and color Doppler. Weight: Weight: 170.6lb. Patient status: Inpatient. CARDIAC ANATOMY LEFT VENTRICLE: The cavity size was normal. Wall thickness was increased in a pattern of mild LVH. Systolic function was normal. The estimated ejection fraction was in the range of 55% to 60%. Wall motion was normal; there were no regional wall motion abnormalities. AORTIC VALVE: Not well visualized. Normal thickness leaflets. Doppler: Transvalvular velocity was within the normal range. There was no stenosis. No regurgitation. AORTA: Aortic root: The aortic root was normal in size. MITRAL VALVE: Not well visualized. Structurally normal valve. Doppler: Transvalvular velocity was within the normal range. There was no evidence for stenosis. Trace regurgitation. Peak gradient: 2mm Hg (D). LEFT ATRIUM: The atrium was normal in size. RIGHT VENTRICLE: The cavity size was normal. Wall thickness was normal. PULMONIC VALVE: Poorly visualized. Doppler: Transvalvular velocity was within the normal range. There was no evidence for stenosis. No regurgitation. TRICUSPID VALVE: Poorly visualized. Doppler: Transvalvular velocity was within the normal range. Mild regurgitation. PULMONARY ARTERY: The main pulmonary artery was normal-sized. Systolic pressure was mildly increased. RIGHT ATRIUM: The atrium was normal in size. PERICARDIUM: A small pericardial effusion was identified. SYSTEMIC VEINS: Inferior vena cava: The vessel was dilated. Patient weight: 170.6lb _Ejection fraction:_ 65-75% _Fractional shortening:_ 32% up to 5Kg 5-11.5Kg 11.6-22.9Kg 23-45Kg 45-57Kg Aortic Root 7-13 <17 13-22 17-27 17-27 LA diam 6-13 <23 24-38 33-47 37-40 RVID 10-17 7-15 7-15 7-18 8-17 LVIDd 12-22 <32 24-38 33-47 37-40 LVPW 2-4 3-6 5-7 6-8 7-8 IVS 2-4 3-6 5-7 6-8 7-8 BASIC MEASUREMENTS ADULT NORMAL Left ventricle LV internal dimension, ED, chordal level, *34.4 mm 43-52 PLAX LV internal dimension, ES, chordal level, 25.1 mm 23-38 PLAX Fractional shortening, chordal level, PLAX *27 % >29 LV posterior wall thickness, ED 12.1 mm IVS/LVPW ratio, ED 1 <1.3 Ventricular septum Septal thickness, ED 12.1 mm Aortic valve Leaflet separation 19 mm 15-26 Aorta Root diameter, ED 37 mm Left atrium Anterior-posterior dimension 24 mm BASIC MEASUREMENTS ADULT NORMAL Aortic valve Leaflet separation 19 mm 15-26 DOPPLER MEASUREMENTS ADULT NORMAL Mitral valve Peak E-wave velocity 74 cm/s Deceleration time *125 ms 150-230 Peak gradient, D 2 mm Hg Tricuspid valve Regurgitant peak velocity 353 cm/s Peak RV-RA gradient, S 50 mm Hg Maximal regurgitant velocity 353 cm/s LEGEND: Mean values are shown as u=mean value. Asterisk (*) young values outside specified normal range. Prepared and signed by Jd Bustos [id number]
[2016-12-28] MEDS ORDERED: DIGOXIN 0.5 MG/2 ML VIAL IVS STA (16:07)
[2016-12-28] MEDS ORDERED: MIDAZOLAM 100 MG/ML INJ 100 ML IV SCH (16:15)
[2016-12-28] MEDS ORDERED: DILTIAZEM HCL 25 MG/5 ML VIAL ONE (16:23)
[2016-12-28] MEDS ORDERED: DILTIAZEM INJ 125 MG in SODIUM CHLORIDE 0.9% INJ 100 ML IV SCH (17:00)
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
[2016-12-28] MEDS: MAGNESIUM HYDROXIDE SUSP 30 ML CUP PO SCH (20:56)
[2016-12-28] MEDS: REMOVE OLD PATCH T-DERMAL SCH (21:00)
[2016-12-28] MEDS ORDERED: DIGOXIN 0.5 MG/2 ML VIAL IVS SCH (22:00)
[2016-12-29] VITALS (22 sets, daily range): BP systolic 94–156; BP diastolic 57–81; PULSE 68–160; RESP 20–24; TEMP 94.5–101; O2SAT 90–100
[2016-12-29] MEDS: PROPOFOL 1000 MG/100 ML INJ 100 ML IV SCH ×4 (00:03→13:35)
[2016-12-29 00:08] LABS: BLOOD GAS BASE EXCESS -1.6 mmol/L (-2-2); BLOOD GAS CARBOXYHEMOGLOBIN 1.2 % (0-4); BLOOD GAS HCO3 22 mmol/L (22-26); BLOOD GAS METHEMOGLOBIN 0.9 % (0-2); BLOOD GAS O2 HGB SATURATION 97 % (90-100); BLOOD GAS OXYGEN CONTENT 14.4 Vol % (12.0-20.0); BLOOD GAS PO2 142 mmHg (61-120); BLOOD GAS TOTAL HGB 10.3 G/DL (12.0-16.0); CRITICAL VALUE NO; OXYGEN DEVICE VENTILATOR; TEMP CORR TO 98.6
[2016-12-29 00:16] LABS: FIO2 60 %; VENT SETTINGS PRVC/AC
[2016-12-29 00:17] LABS: BLOOD GAS PCO2 34 mmHg (38-42); DRAW SITE ART LINE; STAT NO
[2016-12-29] MEDS: CHLORHEXIDINE GLUCONATE 2 % 1 PACK (2 CLOTHS) TOP SCH (04:00)
[2016-12-29] MEDS: RESP: SODIUM CHLORIDE 3% 4 ML NEB NEB SCH ×4 (04:10→20:24)
[2016-12-29] MEDS: RESP: ALBUTEROL 2.5 MG/IPRATROPIUM 0.5 MG NEB (SCH) NEB ×4 (04:10→20:24)
[2016-12-29] MEDS: PIPERACIL-TAZO 4.5 GM PREMIX 100 ML IV SCH ×3 (05:08→21:25)
--- NOTE | 2016-12-29 05:20 | RADRPT ---
EXAM DATE/TIME: 12/29/2016 04:32 [facility] COMPARISON: CHEST SINGLE AP, December 28, 2016, 10:47. INDICATIONS : Shortness of breath. MEDICAL HISTORY : None. SURGICAL HISTORY : None. ENCOUNTER: Subsequent ACUITY: 4 - 6 days PAIN SCORE: Non-responsive. LOCATION: Bilateral chest FINDINGS: There are bilateral effusions, cardiomegaly and lower lung consolidation bilaterally. Right jugular l ine tip overlies the SVC/brachiocephalic venous junction. Enteric tube courses beneath the diaphragm. Endotracheal tube in satisfactory position. CONCLUSION: No significant change has occurred. Pratik Johnson MD on December 29, 2016 at 5:18 Board Certified Radiologist. This report was verified electronically.
[2016-12-29 05:23] LABS: BLOOD GAS BASE EXCESS -2.2 mmol/L (-2-2); BLOOD GAS CARBOXYHEMOGLOBIN 1.2 % (0-4); BLOOD GAS HCO3 22 mmol/L (22-26); BLOOD GAS METHEMOGLOBIN 0.9 % (0-2); BLOOD GAS O2 HGB SATURATION 96 % (90-100); BLOOD GAS OXYGEN CONTENT 13.8 Vol % (12.0-20.0); BLOOD GAS PCO2 33 mmHg (38-42); BLOOD GAS PO2 110 mmHg (61-120); TEMP CORR TO 98.6
[2016-12-29 05:24] LABS: CRITICAL VALUE NO; DRAW SITE ART LINE; FIO2 40 %; OXYGEN DEVICE VENTILATOR; STAT NO; VENT SETTINGS PRVC/AC
[2016-12-29 05:30] LABS: AUTOMATED NEUTROPHIL # 8.2 TH/MM3 (1.8-7.7); BASOPHIL # 0.1 TH/MM3 (0-0.2); BASOPHIL % 1.2 % (0.0-2.0); EOSINOPHIL # 0.3 TH/MM3 (0-0.4); HEMO FLAGS DIFF FINAL; LYMPHOCYTE # 1.7 TH/MM3 (1.0-4.8); MEAN CELL VOLUME 94.6 FL (80.0-100.0); MEAN CORPUSCULAR HEMOGLOBIN 32.1 PG (27.0-34.0); MEAN CORPUSCULAR HGB CONC 33.9 % (32.0-36.0); MONO % 7.7 % (0.0-8.0); NEUT % 73.1 % (16.0-70.0); PLATELET COUNT 187 TH/MM3 (150-450); RED BLOOD COUNT 3.06 MIL/MM3 (4.50-5.90); RED CELL DISTRIBUTION WIDTH 14.1 % (11.6-17.2); WHITE BLOOD COUNT 11.2 TH/MM3 (4.0-11.0)
[2016-12-29] MEDS: METHOCARBAMOL 500 MG TAB PO SCH (05:51)
[2016-12-29] MEDS: PHENYLEPHRINE INJ 40 MG in DEXTROSE 5% IN WATE 500 ML INJ 496 ML IV SCH ×2 (05:57)
[2016-12-29 06:21] LABS: ALKALINE PHOSPHATASE 54 U/L (45-117); ALT (GPT) 27 U/L (12-78); ANION GAP 10 MEQ/L (5-15); AST (GOT) 21 U/L (15-37); BICARBONATE 21.9 MEQ/L (21.0-32.0); BLOOD UREA NITROGEN 10 MG/DL (7-18); CHLORIDE 113 MEQ/L (98-107); DIGOXIN 0.6 NG/ML (0.8-2.0); GLOMERULAR FILTRATION RATE 87 ML/MIN (>89); MAGNESIUM 2.2 MG/DL (1.5-2.5); SODIUM (NA) 145 MEQ/L (136-145); TOTAL BILIRUBIN ADULT 0.5 MG/DL (0.2-1.0)
[2016-12-29 06:26] LABS: POTASSIUM 2.9 MEQ/L (3.5-5.1)
[2016-12-29] MEDS: INSULIN NovoLIN REGULAR SUPPLEMENTAL SCALE SQ SCH ×4 (06:29→21:00)
[2016-12-29] MEDS: VANCOMYCIN INJ 1,400 MG in SODIUM CHLORID 0.9% 500 ML INJ 500 ML IV SCH (08:11)
[2016-12-29] MEDS: MULTIVITAMIN TAB PEG SCH (08:12)
[2016-12-29] MEDS: PANTOPRAZOLE SODIUM 40 MG VIAL IV SCH (08:12)
[2016-12-29] MEDS: DOCUSATE SODIUM 50 MG/SENNA 8.6 MG TAB PO SCH ×2 (08:12→21:23)
[2016-12-29] MEDS: THIAMINE INJ 100 MG in SODIUM CHLORIDE 0.9% INJ 100 ML IV SCH (08:12)
[2016-12-29] MEDS: LACTULOSE SYRUP 20 GM/30 ML CUP PO SCH (08:12)
[2016-12-29] MEDS: levETIRAcetam INJ 500 MG in SODIUM CHLORIDE 0.9% INJ 100 ML IV SCH ×2 (08:12→21:24)
[2016-12-29] MEDS: FOLIC ACID 1 MG TAB PEG SCH (08:13)
[2016-12-29] MEDS: CHLORHEXIDINE 0.12% (ORAL KIT) 15 ML CUP MT SCH ×2 (08:14→21:24)
[2016-12-29] MEDS ORDERED: BISACODYL 10 MG SUPP RECTAL ONE (09:00)
[2016-12-29] MEDS: SODIUM CHLORIDE 0.9% FLUSH 5 ML FLUSH IVF SCH (09:00)
[2016-12-29] MEDS ORDERED: DIGOXIN 0.125 MG TAB PO SCH (09:00)
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
[2016-12-29] MEDS ORDERED: AMIODARONE INJ 900 MG in D5W 500 ML (EXCEL BAG) 482 ML IV SCH (11:30)
[2016-12-29] MEDS ORDERED: AMIODARONE INJ 150 MG in DEXTROSE 5% IN WATER 100ML INJ 97 ML IV ONE ×2 (11:30)
[2016-12-29] MEDS ORDERED: FUROSEMIDE 20 MG/2 ML VIAL IV PUSH ONE (11:30)
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
[2016-12-29] MEDS ORDERED: TERBUTALINE INJ 1 MG/ML AMP SQ PRN (12:15)
[2016-12-29] MEDS: PHENYLEPHRINE HCL 160 MG/D5W 484 ML ADMIX IV SCH ×4 (12:50→21:27)
[2016-12-29] MEDS: MAGNESIUM SULFATE 1 GM PREMIX 100 ML IV SCH ×2 (13:00→13:07)
[2016-12-29] MEDS: AMIODARONE INJ 450 MG in D5W (EXCEL BAG) 241 ML IV SCH ×2 (13:16→21:22)
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
[2016-12-29] MEDS ORDERED: POTASSIUM CHLORIDE 20 MEQ CONTROLLED RELEASE TAB PO SCH (14:00)
[2016-12-29] MEDS ORDERED: DIGOXIN 0.5 MG/2 ML VIAL IV PUSH ONE (14:00)
[2016-12-29] MEDS ORDERED: AMIODARONE IV SCH (14:00)
[2016-12-29] MEDS ORDERED: D5W IV SCH (14:00)
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
[2016-12-29] MEDS: DIGOXIN 0.5 MG/2 ML VIAL IV PUSH SCH (15:00)
[2016-12-29] MEDS: POTASSIUM CHLORIDE 20 MEQ PWD PACKET PO SCH ×2 (15:56→21:00)
--- NOTE | 2016-12-29 17:55 | RADRPT ---
EXAM DATE/TIME: 12/29/2016 17:36 [facility] COMPARISON: CT BRAIN W/O CONTRAST, December 27, 2016, 23:52. INDICATIONS : Evaluate brain hemorrhage. RADIATION DOSE: 57.12 CTDIvol (mGy) MEDICAL HISTORY : Hypertension. Cardiovascular disease SURGICAL HISTORY : None. ENCOUNTER: Initial ACUITY: 1 day PAIN SCALE: Non-responsive LOCATION: cranial TECHNIQUE: Multiple contiguous axial images were obtained of the head. Using automated exposure control and adj ustment of the mA and/or kV according to patient size, radiation dose was kept as low as reasonably a chievable to obtain optimal diagnostic quality images. FINDINGS: Hemorrhage layering along the tentorium and posterior falx is slightly more prominent than previously . Scattered parenchymal contusions, areas of subarachnoid blood and layering intraventricular blood i s grossly stable. No significantly enlarging focal collection is identified. No drainable extra-axial fluid is present. Ventricles are stable and symmetric. There is no significant global brain edema or shift. CONCLUSION: Involving areas of intracranial hemorrhage without significant new acute findings Brian Tipton MD on December 29, 2016 at 17:48 Board Certified Radiologist. This report was verified electronically.
[2016-12-29 19:07] LABS: HEMATOCRIT 32.6 % (39.0-51.0); REVIEW FLAG FINAL
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
[2016-12-29 19:48] LABS: POTASSIUM 3.8 MEQ/L (3.5-5.1)
[2016-12-29] MEDS: BACITRACIN TOP OINT 15 GM TUBE TOP SCH (21:00)
[2016-12-29] MEDS: REMOVE OLD PATCH T-DERMAL SCH (21:00)
[2016-12-29] MEDS: MAGNESIUM HYDROXIDE SUSP 30 ML CUP PO SCH (21:23)
[2016-12-30] VITALS (17 sets, daily range): BP systolic 120–156; BP diastolic 68–76; PULSE 66–143; RESP 20–30; TEMP 98.1–99.5; O2SAT 93–100
[2016-12-30] MEDS ORDERED: PHARMACY ORDERED LAB XX ONE (00:45)
[2016-12-30] MEDS: VANCOMYCIN INJ 1,400 MG in SODIUM CHLORID 0.9% 500 ML INJ 500 ML IV SCH (02:14)
[2016-12-30] MEDS: RESP: SODIUM CHLORIDE 3% 4 ML NEB NEB SCH ×4 (03:47→21:21)
[2016-12-30] MEDS: RESP: ALBUTEROL 2.5 MG/IPRATROPIUM 0.5 MG NEB (SCH) NEB ×4 (03:47→21:18)
[2016-12-30] MEDS: CHLORHEXIDINE GLUCONATE 2 % 1 PACK (2 CLOTHS) TOP SCH (04:00)
[2016-12-30] MEDS: PIPERACIL-TAZO 4.5 GM PREMIX 100 ML IV SCH ×3 (05:07→21:52)
[2016-12-30 05:40] LABS: AUTOMATED NEUTROPHIL # 6.5 TH/MM3 (1.8-7.7); BASOPHIL # 0.1 TH/MM3 (0-0.2); EOSINOPHIL # 0.1 TH/MM3 (0-0.4); EOSINOPHIL % 1.3 % (0.0-4.0); HEMATOCRIT 31.6 % (39.0-51.0); HEMO FLAGS DIFF FINAL; LYMPH % 11.4 % (9.0-44.0); MEAN CELL VOLUME 95.6 FL (80.0-100.0); MEAN CORPUSCULAR HEMOGLOBIN 31.6 PG (27.0-34.0); MEAN CORPUSCULAR HGB CONC 33.1 % (32.0-36.0); MONO % 11.6 % (0.0-8.0); NEUT % 74.7 % (16.0-70.0); PLATELET COUNT 201 TH/MM3 (150-450); RED BLOOD COUNT 3.31 MIL/MM3 (4.50-5.90); RED CELL DISTRIBUTION WIDTH 14.2 % (11.6-17.2); WHITE BLOOD COUNT 8.7 TH/MM3 (4.0-11.0)
[2016-12-30 05:57] LABS: ALKALINE PHOSPHATASE 82 U/L (45-117); ALT (GPT) 35 U/L (12-78); ANION GAP 8 MEQ/L (5-15); AST (GOT) 27 U/L (15-37); BICARBONATE 24.1 MEQ/L (21.0-32.0); BLOOD UREA NITROGEN 10 MG/DL (7-18); CHLORIDE 114 MEQ/L (98-107); GLOMERULAR FILTRATION RATE 62 ML/MIN (>89); MAGNESIUM 2.1 MG/DL (1.5-2.5); POTASSIUM 3.3 MEQ/L (3.5-5.1); SODIUM (NA) 146 MEQ/L (136-145); TOTAL BILIRUBIN ADULT 0.7 MG/DL (0.2-1.0)
--- NOTE | 2016-12-30 06:01 | RADRPT ---
EXAM DATE/TIME: 12/30/2016 04:23 [facility] COMPARISON: CHEST SINGLE AP, December 29, 2016, 4:32. INDICATIONS : Shortness of breath. MEDICAL HISTORY : None. SURGICAL HISTORY : None. ENCOUNTER: Subsequent ACUITY: 4 - 6 days PAIN SCORE: Non-responsive. LOCATION: Bilateral chest FINDINGS: Bilateral effusions, lower lobe consolidation greatest in the left lower lobe and cardiomegaly. Endot monika tube and left jugular line again seen. Enteric tube courses beneath the diaphragm. CONCLUSION: No significant change has occurred. Pratik Johnson MD on December 30, 2016 at 5:59 Board Certified Radiologist. This report was verified electronically.
[2016-12-30 06:36] LABS: BLOOD GAS BASE EXCESS -3.8 mmol/L (-2-2); BLOOD GAS CARBOXYHEMOGLOBIN 1.1 % (0-4); BLOOD GAS HCO3 21 mmol/L (22-26); BLOOD GAS METHEMOGLOBIN 0.8 % (0-2); BLOOD GAS O2 HGB SATURATION 94 % (90-100); BLOOD GAS PCO2 39 mmHg (38-42); BLOOD GAS PO2 87 mmHg (61-120); BLOOD GAS TOTAL HGB 18.9 G/DL (12.0-16.0); CRITICAL VALUE NO; OXYGEN DEVICE VENTILATOR; TEMP CORR TO 98.6
[2016-12-30 06:37] LABS: DRAW SITE ART LINE; FIO2 35 %; STAT NO; VENT SETTINGS PRVC / AC
[2016-12-30] MEDS: INSULIN NovoLIN REGULAR SUPPLEMENTAL SCALE SQ SCH ×4 (07:00→21:00)
[2016-12-30] MEDS: BISACODYL 10 MG SUPP RECTAL SCH (08:54)
[2016-12-30] MEDS: SODIUM CHLORIDE 0.9% FLUSH 5 ML FLUSH IVF SCH ×3 (08:55→22:09)
[2016-12-30] MEDS: CHLORHEXIDINE 0.12% (ORAL KIT) 15 ML CUP MT SCH ×2 (08:55→19:31)
[2016-12-30] MEDS: THIAMINE INJ 100 MG in SODIUM CHLORIDE 0.9% INJ 100 ML IV SCH (08:57)
[2016-12-30] MEDS: LACTULOSE SYRUP 20 GM/30 ML CUP PO SCH ×2 (08:57→22:07)
[2016-12-30] MEDS: MULTIVITAMIN TAB PEG SCH (08:57)
[2016-12-30] MEDS: DOCUSATE SODIUM 50 MG/SENNA 8.6 MG TAB PO SCH ×2 (08:58→22:08)
[2016-12-30] MEDS: levETIRAcetam INJ 500 MG in SODIUM CHLORIDE 0.9% INJ 100 ML IV SCH ×2 (08:58→21:53)
[2016-12-30] MEDS: FOLIC ACID 1 MG TAB PEG SCH (08:58)
[2016-12-30] MEDS: POTASSIUM CHLORIDE 20 MEQ PWD PACKET PO SCH ×2 (08:58→22:08)
[2016-12-30] MEDS: DIGOXIN 0.5 MG/2 ML VIAL IV PUSH SCH (08:58)
[2016-12-30] MEDS: BACITRACIN TOP OINT 15 GM TUBE TOP SCH ×2 (08:59→22:09)
[2016-12-30] MEDS: LIDOCAINE HCL 5% PATCH TD SCH (09:00)
[2016-12-30] MEDS: PANTOPRAZOLE SODIUM 40 MG VIAL IV SCH (09:01)
[2016-12-30] MEDS ORDERED: POTASSIUM CHLOR 40 MEQ PREMIX 100 ML IV ONE ×2 (10:00→14:00)
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
[2016-12-30] MEDS ORDERED: MAGNESIUM SULFATE 2 GM/NS 100 ML IV ONE ×2 (11:00)
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
[2016-12-30] MEDS ORDERED: FUROSEMIDE 100 MG/10 ML VIAL IV PUSH ONE (14:00)
[2016-12-30] MEDS ORDERED: MAGNESIUM CITRATE SOLN 300 ML BTL PO ONE (14:00)
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
[2016-12-30] MEDS: AMIODARONE INJ 200 MG in DEXTROSE 5% IN WATER 100ML INJ 97 ML IV SCH ×4 (15:07→21:54)
[2016-12-30] MEDS: POLYETHYLENE GLYCOL 17 GM PKG PO SCH ×2 (16:39→22:08)
[2016-12-30] MEDS ORDERED: METOPROLOL TARTRATE 5 MG/5 ML VIAL IV PUSH ONE (17:00)
[2016-12-30 17:20] LABS: MAGNESIUM 2.2 MG/DL (1.5-2.5)
[2016-12-30] MEDS ORDERED: LIDOCAINE HCL 2% 100 MG/5 ML SYRINGE ONE (17:51)
[2016-12-30] MEDS ORDERED: LIDOCAINE HCL 2% 100 MG/5 ML SYRINGE IV PUSH ONE (18:45)
[2016-12-30] MEDS ORDERED: MAGNESIUM SULFATE INJ 2 GM in SODIUM CHLORIDE 0.9% INJ 96 ML IV ONE (19:00)
[2016-12-30 19:23] LABS: BICARBONATE 25.5 MEQ/L (21.0-32.0); POTASSIUM 3.9 MEQ/L (3.5-5.1)
[2016-12-30] MEDS ORDERED: VANCOMYCIN INJ 1,500 MG in SODIUM CHLORID 0.9% 500 ML INJ 500 ML IV SCH (20:00)
[2016-12-30] MEDS: REMOVE OLD PATCH T-DERMAL SCH (21:00)
[2016-12-30] MEDS: MAGNESIUM HYDROXIDE SUSP 30 ML CUP PO SCH (22:08)
[2016-12-31] VITALS (16 sets, daily range): BP systolic 106–160; BP diastolic 63–96; PULSE 74–148; RESP 20–22; TEMP 98.2–99.7; O2SAT 95–100
[2016-12-31] MEDS: ACETAMINOPHEN/HYDROcodone 325 MG/10 MG TAB PO PRN ×4 (01:12→10:45)
[2016-12-31] MEDS: RESP: ALBUTEROL 2.5 MG/IPRATROPIUM 0.5 MG NEB (SCH) NEB ×4 (03:32→20:45)
[2016-12-31] MEDS: RESP: SODIUM CHLORIDE 3% 4 ML NEB NEB SCH ×4 (03:32→22:00)
[2016-12-31] MEDS: CHLORHEXIDINE GLUCONATE 2 % 1 PACK (2 CLOTHS) TOP SCH (03:48)
--- NOTE | 2016-12-31 04:52 | RADRPT ---
EXAM DATE/TIME: 12/31/2016 03:58 [facility] COMPARISON: CHEST SINGLE AP, December 30, 2016, 4:23. INDICATIONS : Shortness of breath. MEDICAL HISTORY : None. SURGICAL HISTORY : None. ENCOUNTER: Subsequent ACUITY: 1 week PAIN SCORE: Non-responsive. LOCATION: Bilateral chest FINDINGS: Left jugular line, endotracheal tube and enteric tube are noted. Side-port at the esophagogastric paris ction. Cardiomegaly and bilateral consolidation and effusions noted at the bases. Multiple rib fractu res are again seen. CONCLUSION: No significant change has occurred. Pratik Johnson MD on December 31, 2016 at 4:50 Board Certified Radiologist. This report was verified electronically.
[2016-12-31] MEDS: PIPERACIL-TAZO 4.5 GM PREMIX 100 ML IV SCH ×3 (05:10→22:17)
[2016-12-31 05:16] LABS: BLOOD GAS BASE EXCESS -0.4 mmol/L (-2-2); BLOOD GAS CARBOXYHEMOGLOBIN 1.2 % (0-4); BLOOD GAS HCO3 24 mmol/L (22-26); BLOOD GAS METHEMOGLOBIN 0.9 % (0-2); BLOOD GAS O2 HGB SATURATION 96 % (90-100); BLOOD GAS OXYGEN CONTENT 16.8 Vol % (12.0-20.0); BLOOD GAS PCO2 38 mmHg (38-42); BLOOD GAS PO2 104 mmHg (61-120); BLOOD GAS TOTAL HGB 12.4 G/DL (12.0-16.0); CRITICAL VALUE NO; OXYGEN DEVICE VENTILATOR; TEMP CORR TO 98.6
[2016-12-31 05:17] LABS: DRAW SITE ART LINE; FIO2 35 %; STAT NO; VENT SETTINGS PRVC / AC /
[2016-12-31 05:44] LABS: AUTOMATED NEUTROPHIL # 8.6 TH/MM3 (1.8-7.7); BASOPHIL % 0.5 % (0.0-2.0); EOSINOPHIL % 0.3 % (0.0-4.0); HEMATOCRIT 31.5 % (39.0-51.0); HEMO FLAGS DIFF FINAL; LYMPH % 7.5 % (9.0-44.0); LYMPHOCYTE # 0.8 TH/MM3 (1.0-4.8); MEAN CELL VOLUME 93.1 FL (80.0-100.0); MEAN CORPUSCULAR HGB CONC 34.4 % (32.0-36.0); MONO % 9.5 % (0.0-8.0); NEUT % 82.2 % (16.0-70.0); PLATELET COUNT 224 TH/MM3 (150-450); RED BLOOD COUNT 3.39 MIL/MM3 (4.50-5.90); RED CELL DISTRIBUTION WIDTH 14.2 % (11.6-17.2); WHITE BLOOD COUNT 10.4 TH/MM3 (4.0-11.0)
[2016-12-31 06:23] LABS: ALKALINE PHOSPHATASE 92 U/L (45-117); ALT (GPT) 77 U/L (12-78); ANION GAP 7 MEQ/L (5-15); AST (GOT) 54 U/L (15-37); BICARBONATE 26.8 MEQ/L (21.0-32.0); BLOOD UREA NITROGEN 11 MG/DL (7-18); CHLORIDE 116 MEQ/L (98-107); GLOMERULAR FILTRATION RATE 55 ML/MIN (>89); MAGNESIUM 2.3 MG/DL (1.5-2.5); POTASSIUM 3.9 MEQ/L (3.5-5.1); SODIUM (NA) 150 MEQ/L (136-145)
[2016-12-31] MEDS: INSULIN NovoLIN REGULAR SUPPLEMENTAL SCALE SQ SCH ×4 (06:32→22:33)
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
[2016-12-31] MEDS ORDERED: FUROSEMIDE 100 MG/10 ML VIAL IV PUSH ONE (07:45)
[2016-12-31] MEDS: FREE WATER G-TUBE SCH ×3 (07:45→22:17)
[2016-12-31] MEDS: THIAMINE INJ 100 MG in SODIUM CHLORIDE 0.9% INJ 100 ML IV SCH (08:24)
[2016-12-31] MEDS: POLYETHYLENE GLYCOL 17 GM PKG PO SCH ×2 (08:25→20:53)
[2016-12-31] MEDS: FOLIC ACID 1 MG TAB PEG SCH (08:25)
[2016-12-31] MEDS: LACTULOSE SYRUP 20 GM/30 ML CUP PO SCH ×2 (08:25→20:53)
[2016-12-31] MEDS: BISACODYL 10 MG SUPP RECTAL SCH (08:26)
[2016-12-31] MEDS: PANTOPRAZOLE SODIUM 40 MG VIAL IV SCH (08:27)
[2016-12-31] MEDS: DIGOXIN 0.5 MG/2 ML VIAL IV PUSH SCH (08:27)
[2016-12-31] MEDS: DOCUSATE SODIUM 50 MG/SENNA 8.6 MG TAB PO SCH ×2 (08:27→20:53)
[2016-12-31] MEDS: levETIRAcetam INJ 500 MG in SODIUM CHLORIDE 0.9% INJ 100 ML IV SCH ×2 (08:27→20:52)
[2016-12-31] MEDS: MULTIVITAMIN TAB PEG SCH (08:27)
[2016-12-31] MEDS: SODIUM CHLORIDE 0.9% FLUSH 5 ML FLUSH IVF SCH ×3 (08:28→20:54)
[2016-12-31] MEDS: POTASSIUM CHLORIDE 20 MEQ PWD PACKET PO SCH ×2 (08:28→20:58)
[2016-12-31] MEDS: AMIODARONE INJ 200 MG in DEXTROSE 5% IN WATER 100ML INJ 97 ML IV SCH ×4 (08:28→21:01)
[2016-12-31] MEDS: BACITRACIN TOP OINT 15 GM TUBE TOP SCH ×2 (08:29→22:18)
[2016-12-31] MEDS: LIDOCAINE HCL 5% PATCH TD SCH (08:29)
[2016-12-31] MEDS: CHLORHEXIDINE 0.12% (ORAL KIT) 15 ML CUP MT SCH ×2 (08:29→20:52)
[2016-12-31] MEDS: PROPRANOLOL HCL 10 MG TAB PO SCH ×2 (08:57→16:19)
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
[2016-12-31] MEDS: hydrALAZINE HCL 20 MG/ML VIAL IV PUSH PRN (10:24)
[2016-12-31 12:12] LABS: MAGNESIUM 2.2 MG/DL (1.5-2.5)
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
[2016-12-31] MEDS ORDERED: METOPROLOL TARTRATE 5 MG/5 ML VIAL IV PUSH ONE (13:15)
--- NOTE | 2016-12-31 14:18 | RADRPT ---
EXAM DATE/TIME: 12/31/2016 12:57 [facility] COMPARISON: No previous studies available for comparison. INDICATIONS : Constipation. MEDICAL HISTORY : None. SURGICAL HISTORY : None. ENCOUNTER: Initial ACUITY: 1 week PAIN SCORE: Non-responsive. LOCATION: Abdomen. FINDINGS: Supine view of the abdomen was performed. Air is seen throughout most of the colon in a nonobstructed pattern there some mild distention of the ascending colon. No pneumoperitoneum. Osseous structures are intact CONCLUSION: Nonobstructed bowel gas pattern. No plain film findings of constipation or pneumoperitoneum. Jovi Jennings MD on December 31, 2016 at 14:15 Board Certified Radiologist. This report was verified electronically.
[2016-12-31] MEDS ORDERED: LABETALOL HCL 100 MG/20 ML VIAL IV PUSH ONE (16:45)
[2016-12-31] MEDS: MAGNESIUM SULFAT 1 GM PREMIX 100 ML x2 bags IV SCH ×2 (16:54→17:56)
[2016-12-31] MEDS: LABETALOL HCL 100 MG/20 ML VIAL IV PRN ×2 (18:40→20:53)
[2016-12-31] MEDS: MAGNESIUM HYDROXIDE SUSP 30 ML CUP PO SCH (20:53)
[2016-12-31] MEDS: REMOVE OLD PATCH T-DERMAL SCH (21:00)
[2017-01-01] VITALS (18 sets, daily range): BP systolic 160–184; BP diastolic 78–86; PULSE 70–89; RESP 16–30; TEMP 99.1–99.7; O2SAT 95–99
[2017-01-01] MEDS: PROPRANOLOL HCL 10 MG TAB PO SCH ×2 (00:32→08:29)
[2017-01-01] MEDS: LABETALOL HCL 100 MG/20 ML VIAL IV PRN ×7 (00:32→21:15)
[2017-01-01] MEDS: hydrALAZINE HCL 20 MG/ML VIAL IV PUSH PRN ×4 (02:26→23:07)
--- NOTE | 2017-01-01 03:18 | RADRPT ---
EXAM DATE/TIME: 01/01/2017 02:45 [facility] COMPARISON: CHEST SINGLE AP, December 31, 2016, 3:58. INDICATIONS : Shortness of breath. MEDICAL HISTORY : None. SURGICAL HISTORY : None. ENCOUNTER: Subsequent ACUITY: 1 week PAIN SCORE: Non-responsive. LOCATION: Bilateral chest FINDINGS: Endotracheal tube and left subclavian central venous catheter are again noted. Enteric tube courses b eneath the diaphragm. There is patchy left lower lobe airspace disease and improved aeration of the r ight lung. Left sided remote rib fractures. CONCLUSION: Improved aeration. Pratik Johnson MD on January 01, 2017 at 3:16 Board Certified Radiologist. This report was verified electronically.
[2017-01-01] MEDS: RESP: ALBUTEROL 2.5 MG/IPRATROPIUM 0.5 MG NEB (SCH) NEB ×4 (03:55→20:14)
[2017-01-01 04:18] LABS: HEMATOCRIT 31.1 % (39.0-51.0); MEAN CELL VOLUME 92.4 FL (80.0-100.0); MEAN CORPUSCULAR HEMOGLOBIN 32.4 PG (27.0-34.0); PLATELET COUNT 281 TH/MM3 (150-450); RED BLOOD COUNT 3.37 MIL/MM3 (4.50-5.90); RED CELL DISTRIBUTION WIDTH 14.3 % (11.6-17.2); WHITE BLOOD COUNT 14.6 TH/MM3 (4.0-11.0)
[2017-01-01] MEDS: CHLORHEXIDINE GLUCONATE 2 % 1 PACK (2 CLOTHS) TOP SCH (04:20)
[2017-01-01 04:37] LABS: ALT (GPT) 120 U/L (12-78); ANION GAP 8 MEQ/L (5-15); AST (GOT) 75 U/L (15-37); BLOOD UREA NITROGEN 15 MG/DL (7-18); CHLORIDE 114 MEQ/L (98-107); GLOMERULAR FILTRATION RATE 50 ML/MIN (>89); HEMO FLAGS AUTO DIFF; MAGNESIUM 2.3 MG/DL (1.5-2.5); POTASSIUM 3.6 MEQ/L (3.5-5.1); SODIUM (NA) 151 MEQ/L (136-145)
[2017-01-01 04:40] LABS: ALKALINE PHOSPHATASE 102 U/L (45-117); TOTAL BILIRUBIN ADULT 1.1 MG/DL (0.2-1.0)
[2017-01-01] MEDS: FREE WATER G-TUBE SCH ×4 (05:21→23:07)
[2017-01-01] MEDS: PIPERACIL-TAZO 4.5 GM PREMIX 100 ML IV SCH ×3 (05:21→20:34)
[2017-01-01 05:29] LABS: BANDS 1 % (0-6); METAMYELOCYTES 1 % (0-1); PLATELET ESTIMATE SMEAR NORMAL (NORMAL); PLATELET MORPHOLOGY NORMAL (NORMAL); POLYS (SEG NEUTROPHILS) 73 % (16-70); SCAN/DIFF FINAL DIFF MANUAL; WBC DIFF SAMPLE 100
[2017-01-01 05:43] LABS: BLOOD GAS BASE EXCESS 2.5 mmol/L (-2-2); BLOOD GAS CARBOXYHEMOGLOBIN 1.3 % (0-4); BLOOD GAS HCO3 25 mmol/L (22-26); BLOOD GAS METHEMOGLOBIN 0.7 % (0-2); BLOOD GAS O2 HGB SATURATION 95 % (90-100); BLOOD GAS OXYGEN CONTENT 14.6 Vol % (12.0-20.0); BLOOD GAS PCO2 32 mmHg (38-42); BLOOD GAS PO2 80 mmHg (61-120); BLOOD GAS TOTAL HGB 10.9 G/DL (12.0-16.0); TEMP CORR TO 98.6
[2017-01-01 05:45] LABS: CRITICAL VALUE YES; OXYGEN DEVICE VENTILATOR
[2017-01-01 05:46] LABS: DRAW SITE ART LINE; FIO2 35 %; STAT NO; VENT SETTINGS PRVC/AC
[2017-01-01] MEDS: INSULIN NovoLIN REGULAR SUPPLEMENTAL SCALE SQ SCH ×4 (07:00→21:00)
[2017-01-01] MEDS: RESP: SODIUM CHLORIDE 3% 4 ML NEB NEB SCH ×4 (07:58→20:15)
--- NOTE | 2017-01-01 08:11 | PD.CARD.PN ---
Subjective Subjective Remarks Intubated and sedated Objective Vital Signs / I&O Vital Signs Date Time Temp Pulse Resp B/P Pulse Ox O2 Delivery O2 Flow Rate FiO2 01/01/17 08:02 99 35 01/01/17 06:00 82 01/01/17 04:00 99.3 86 30 164/78 97 01/01/17 04:00 86 01/01/17 04:00 35 01/01/17 04:00 99 35 01/01/17 02:08 26 01/01/17 02:00 86 01/01/17 01:20 99 35 01/01/17 00:00 99.7 74 26 184/82 95 01/01/17 00:00 35 01/01/17 00:00 74 12/31/16 22:00 74 12/31/16 20:35 100 35 12/31/16 20:00 74 12/31/16 20:00 35 12/31/16 20:00 99.3 76 22 130/66 95 12/31/16 18:00 75 12/31/16 16:55 99 35 12/31/16 16:00 75 12/31/16 16:00 98.9 75 22 106/63 99 12/31/16 16:00 35 12/31/16 14:00 98 12/31/16 12:00 99.6 76 20 130/64 98 12/31/16 12:00 76 12/31/16 12:00 35 12/31/16 11:59 20 12/31/16 11:48 96 35 12/31/16 10:00 74 12/31/16 08:18 100 35 I/O 12/31/16 12/31/16 12/31/16 01/01/17 01/01/17 01/01/17 07:00 15:00 23:00 07:00 15:00 23:00 Intake Total 442 ml 480 ml 1128 ml 719 ml Output Total 500 ml 3000 ml 700 ml 300 ml Balance -58 ml -2520 ml 428 ml 419 ml IV Total 442 ml 480 ml 710 ml 277 ml Tube Feeding 158 ml 122 ml Tube Irrigant 260 ml 320 ml Output Urine Total 450 ml 3000 ml 700 ml 300 ml Gastric Drainage Total 50 ml # Bowel Movements 1 0 0 2 Physical Exam HR 80. A fib Laboratory Laboratory Tests Test 12/31/16 01/01/1701/01/17 11:37 04:00 05:01 Sodium Level 151 MEQ/L 151 MEQ/L Potassium Level 4.0 MEQ/L 3.6 MEQ/L Chloride Level 115 MEQ/L 114 MEQ/L Carbon Dioxide Level 27.0 MEQ/L 29.0 MEQ/L Anion Gap 9 MEQ/L 8 MEQ/L Blood Urea Nitrogen 11 MG/DL 15 MG/DL Creatinine 1.26 MG/DL 1.40 MG/DL Estimat Glomerular Filtration 57 ML/MIN 50 ML/MIN Rate Random Glucose 183 MG/DL 132 MG/DL Calcium Level 8.7 MG/DL 9.1 MG/DL Magnesium Level 2.2 MG/DL 2.3 MG/DL White Blood Count 14.6 TH/MM3 Red Blood Count 3.37 MIL/MM3 Hemoglobin 10.9 GM/DL Hematocrit 31.1 % Mean Corpuscular Volume 92.4 FL Mean Corpuscular Hemoglobin 32.4 PG Mean Corpuscular Hemoglobin 35.0 % Concent Red Cell Distribution Width 14.3 % Platelet Count 281 TH/MM3 Mean Platelet Volume 9.5 FL Neutrophils (%) (Auto) % Lymphocytes (%) (Auto) % Monocytes (%) (Auto) % Eosinophils (%) (Auto) % Basophils (%) (Auto) % Neutrophils # (Auto) TH/MM3 Lymphocytes # (Auto) TH/MM3 Monocytes # (Auto) TH/MM3 Eosinophils # (Auto) TH/MM3 Basophils # (Auto) TH/MM3 CBC Comment AUTO DIFF Differential Total Cells 100 Counted Neutrophils % (Manual) 73 % Band Neutrophils % 1 % Lymphocytes % 12 % Monocytes % 13 % Neutrophils # (Manual) 11.0 TH/MM3 Metamyelocytes 1 % Differential Comment FINAL DIFF MANUAL Platelet Estimate NORMAL Platelet Morphology Comment NORMAL Phosphorus Level 1.5 MG/DL Total Bilirubin 1.1 MG/DL Aspartate Amino Transf 75 U/L (AST/SGOT) Alanine Aminotransferase 120 U/L (ALT/SGPT) Alkaline Phosphatase 102 U/L Total Protein 6.3 GM/DL Albumin 2.1 GM/DL Blood Gas Puncture Site ART LINE Blood Gas Patient Temperature 98.6 Blood Gas HCO3 25 mmol/L Blood Gas Base Excess 2.5 mmol/L Blood Gas Oxygen Saturation 95 % Arterial Blood pH 7.51 Arterial Blood Partial 32 mmHg Pressure CO2 Arterial Blood Partial 80 mmHg Pressure O2 Arterial Blood Oxygen Content 14.6 Vol % Arterial Blood 1.3 % Carboxyhemoglobin Arterial Blood Methemoglobin 0.7 % Blood Gas Hemoglobin 10.9 G/DL Oxygen Delivery Device VENTILATOR Blood Gas Ventilator Setting PRVC/AC Blood Gas Inspired Oxygen 35 % Assessment and Plan Assessment and Plan HR controlled. Will d/c 0.25 mg dig and continue with 0.125 mg daily. Will need to watch dose due to worsening renal failure. Will try bolus or fluids. Decrease amiodarone to 200 mg daily Mason Maxwell MD Jan 01, 2017 08:11
[2017-01-01] MEDS ORDERED: SODIUM CHLORID 0.9% 500 ML INJ 500 ML IV ONE (08:15)
[2017-01-01] MEDS: FOLIC ACID 1 MG TAB PEG SCH (08:28)
[2017-01-01] MEDS: DOCUSATE SODIUM 50 MG/SENNA 8.6 MG TAB PO SCH ×2 (08:29→19:20)
[2017-01-01] MEDS: THIAMINE INJ 100 MG in SODIUM CHLORIDE 0.9% INJ 100 ML IV SCH (08:29)
[2017-01-01] MEDS: levETIRAcetam INJ 500 MG in SODIUM CHLORIDE 0.9% INJ 100 ML IV SCH ×2 (08:29→20:10)
[2017-01-01] MEDS: MULTIVITAMIN TAB PEG SCH (08:29)
[2017-01-01] MEDS: POTASSIUM CHLORIDE 20 MEQ PWD PACKET PO SCH ×2 (08:29→20:09)
[2017-01-01] MEDS: LACTULOSE SYRUP 20 GM/30 ML CUP PO SCH ×2 (08:29→19:20)
[2017-01-01] MEDS: BACITRACIN TOP OINT 15 GM TUBE TOP SCH ×2 (08:30→20:10)
[2017-01-01] MEDS: CHLORHEXIDINE 0.12% (ORAL KIT) 15 ML CUP MT SCH ×2 (08:30→20:08)
[2017-01-01] MEDS: SODIUM CHLORIDE 0.9% FLUSH 5 ML FLUSH IVF SCH ×3 (08:30→20:09)
[2017-01-01] MEDS: POLYETHYLENE GLYCOL 17 GM PKG PO SCH ×2 (08:30→19:20)
[2017-01-01] MEDS: BISACODYL 10 MG SUPP RECTAL SCH (08:30)
[2017-01-01] MEDS: PANTOPRAZOLE SODIUM 40 MG VIAL IV SCH (08:30)
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
[2017-01-01] MEDS: LIDOCAINE HCL 5% PATCH TD SCH (09:24)
[2017-01-01] MEDS: POTASSIUM PHOSPHATE INJ 30 MMOL in SODIUM CHLOR 0.9% 250 ML INJ 250 ML IV PRN (09:24)
[2017-01-01] MEDS ORDERED: AMIODARONE INJ 200 MG in DEXTROSE 5% IN WATER 100ML INJ 97 ML IV SCH ×2 (10:00)
[2017-01-01] MEDS: ACETAMINOPHEN/HYDROcodone 325 MG/10 MG TAB PO PRN (10:12)
[2017-01-01] MEDS: ENOXAPARIN SODIUM 40 MG/0.4 ML SYRINGE SQ SCH (11:07)
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
[2017-01-01 12:41] LABS: BLOOD GAS BASE EXCESS 2.8 mmol/L (-2-2); BLOOD GAS CARBOXYHEMOGLOBIN 1.1 % (0-4); BLOOD GAS HCO3 27 mmol/L (22-26); BLOOD GAS METHEMOGLOBIN 0.8 % (0-2); BLOOD GAS O2 HGB SATURATION 95 % (90-100); BLOOD GAS OXYGEN CONTENT 14.4 Vol % (12.0-20.0); BLOOD GAS PCO2 38 mmHg (38-42); BLOOD GAS PO2 82 mmHg (61-120); BLOOD GAS TOTAL HGB 10.8 G/DL (12.0-16.0); CRITICAL VALUE NO; DRAW SITE ART LINE; FIO2 35 %; OXYGEN DEVICE VENTILATOR; TEMP CORR TO 98.6; VENT SETTINGS CPAP/5/+5/35%
[2017-01-01 12:42] LABS: STAT NO
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
[2017-01-01] MEDS: PROPRANOLOL HCL 20 MG TAB PO SCH ×2 (13:26→20:09)
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
[2017-01-01] MEDS: MAGNESIUM HYDROXIDE SUSP 30 ML CUP PO SCH (19:20)
[2017-01-01] MEDS: AMIODARONE 200 MG TAB PO SCH (20:08)
[2017-01-01] MEDS: REMOVE OLD PATCH T-DERMAL SCH (20:10)
[2017-01-02] VITALS (17 sets, daily range): BP systolic 150–169; BP diastolic 72–83; PULSE 72–88; RESP 15–31; TEMP 99–99.7; O2SAT 93–100
[2017-01-02] MEDS: LABETALOL HCL 100 MG/20 ML VIAL IV PRN ×3 (01:06→10:01)
[2017-01-02] MEDS: RESP: ALBUTEROL 2.5 MG/IPRATROPIUM 0.5 MG NEB (SCH) NEB ×4 (01:29→20:24)
[2017-01-02] MEDS: RESP: SODIUM CHLORIDE 3% 4 ML NEB NEB SCH ×2 (01:35→09:40)
[2017-01-02] MEDS ORDERED: PHARMACY ORDERED LAB XX ONE (01:45)
[2017-01-02] MEDS: ACETAMINOPHEN/HYDROcodone 325 MG/10 MG TAB PO PRN (02:26)
[2017-01-02] MEDS: PROPRANOLOL HCL 20 MG TAB PO SCH ×2 (02:26→07:59)
[2017-01-02] MEDS: CHLORHEXIDINE GLUCONATE 2 % 1 PACK (2 CLOTHS) TOP SCH (04:00)
[2017-01-02] MEDS: PIPERACIL-TAZO 4.5 GM PREMIX 100 ML IV SCH ×2 (04:45→13:35)
[2017-01-02 06:01] LABS: AUTOMATED NEUTROPHIL # 7.9 TH/MM3 (1.8-7.7); BASOPHIL % 0.4 % (0.0-2.0); EOSINOPHIL % 0.3 % (0.0-4.0); HEMATOCRIT 28.6 % (39.0-51.0); HEMO FLAGS DIFF FINAL; LYMPH % 9.4 % (9.0-44.0); MEAN CELL VOLUME 93.8 FL (80.0-100.0); MEAN CORPUSCULAR HEMOGLOBIN 31.7 PG (27.0-34.0); MEAN CORPUSCULAR HGB CONC 33.9 % (32.0-36.0); MONO % 12.1 % (0.0-8.0); NEUT % 77.8 % (16.0-70.0); PLATELET COUNT 247 TH/MM3 (150-450); RED BLOOD COUNT 3.05 MIL/MM3 (4.50-5.90); RED CELL DISTRIBUTION WIDTH 14.3 % (11.6-17.2); WHITE BLOOD COUNT 10.2 TH/MM3 (4.0-11.0)
[2017-01-02 06:25] LABS: ALKALINE PHOSPHATASE 73 U/L (45-117); ALT (GPT) 109 U/L (12-78); ANION GAP 9 MEQ/L (5-15); AST (GOT) 55 U/L (15-37); BICARBONATE 29.5 MEQ/L (21.0-32.0); BLOOD UREA NITROGEN 20 MG/DL (7-18); CHLORIDE 111 MEQ/L (98-107); GLOMERULAR FILTRATION RATE 58 ML/MIN (>89); POTASSIUM 3.4 MEQ/L (3.5-5.1); SODIUM (NA) 149 MEQ/L (136-145)
[2017-01-02] MEDS: FREE WATER G-TUBE SCH ×4 (06:45→23:41)
[2017-01-02] MEDS: INSULIN NovoLIN REGULAR SUPPLEMENTAL SCALE SQ SCH ×4 (06:45→20:41)
[2017-01-02] MEDS: hydrALAZINE HCL 20 MG/ML VIAL IV PUSH PRN ×4 (07:16→23:40)
[2017-01-02] MEDS: CHLORHEXIDINE 0.12% (ORAL KIT) 15 ML CUP MT SCH ×2 (07:59→20:36)
[2017-01-02] MEDS: MULTIVITAMIN TAB PEG SCH (08:02)
[2017-01-02] MEDS: FOLIC ACID 1 MG TAB PEG SCH (08:02)
[2017-01-02] MEDS: SODIUM CHLORIDE 0.9% FLUSH 5 ML FLUSH IVF SCH ×3 (08:02→20:36)
[2017-01-02] MEDS: PANTOPRAZOLE SODIUM 40 MG VIAL IV SCH (08:02)
[2017-01-02] MEDS: levETIRAcetam INJ 500 MG in SODIUM CHLORIDE 0.9% INJ 100 ML IV SCH (08:02)
[2017-01-02] MEDS: THIAMINE INJ 100 MG in SODIUM CHLORIDE 0.9% INJ 100 ML IV SCH (08:03)
[2017-01-02] MEDS: AMIODARONE 200 MG TAB PO SCH ×2 (08:04→20:36)
[2017-01-02] MEDS: DOCUSATE SODIUM 50 MG/SENNA 8.6 MG TAB PO SCH ×2 (08:05→20:38)
[2017-01-02] MEDS: POLYETHYLENE GLYCOL 17 GM PKG PO SCH ×2 (08:05→20:38)
[2017-01-02] MEDS: BISACODYL 10 MG SUPP RECTAL SCH (08:05)
[2017-01-02] MEDS: BACITRACIN TOP OINT 15 GM TUBE TOP SCH ×2 (08:05→21:02)
[2017-01-02] MEDS: LACTULOSE SYRUP 20 GM/30 ML CUP PO SCH ×2 (08:05→20:38)
[2017-01-02] MEDS: POTASSIUM CHLORIDE 20 MEQ PWD PACKET PO SCH ×2 (08:05→20:37)
--- NOTE | 2017-01-02 08:27 | PD.CARD.PN ---
Subjective Subjective Remarks Awake and responsive. Back in NSR Objective Vital Signs / I&O Vital Signs Date Time Temp Pulse Resp B/P Pulse Ox O2 Delivery O2 Flow Rate FiO2 01/02/17 06:00 72 01/02/17 05:46 16 01/02/17 04:00 35 01/02/17 04:00 99.0 76 15 169/73 99 01/02/17 04:00 76 01/02/17 03:47 98 35 01/02/17 03:26 14 01/02/17 02:00 83 01/02/17 01:29 97 35 01/02/17 00:00 99.5 84 17 169/83 97 01/02/17 00:00 35 01/02/17 00:00 84 01/01/17 22:09 98 35 01/01/17 22:00 76 01/01/17 20:15 95 35 01/01/17 20:00 80 01/01/17 20:00 35 01/01/17 20:00 99.6 80 20 167/85 99 01/01/17 18:00 70 01/01/17 16:40 97 35 01/01/17 16:00 35 01/01/17 16:00 82 01/01/17 16:00 99.7 78 16 166/80 97 01/01/17 14:00 74 01/01/17 12:00 78 01/01/17 12:00 99.1 78 16 182/86 98 01/01/17 12:00 35 01/01/17 11:46 97 35 01/01/17 10:00 86 I/O 01/01/17 01/01/17 01/01/17 01/02/17 01/02/17 01/02/17 06:59 14:59 22:59 06:59 14:59 22:59 Intake Total 719 ml 1510 ml 661 ml 613 ml Output Total 300 ml 300 ml 375 ml 600 ml Balance 419 ml 1210 ml 286 ml 13 ml IV Total 277 ml 1151 ml 437 ml 180 ml Tube Feeding 122 ml 159 ml 104 ml 133 ml Tube Irrigant 320 ml 200 ml Other 120 ml 300 ml Output Urine Total 300 ml 300 ml 375 ml 300 ml Stool Total 300 ml # Bowel Movements 2 1 4 4 Physical Exam HR 80. NSR Laboratory Laboratory Tests Test 01/01/17 01/02/17 13:30 05:30 Blood Gas Puncture Site ART LINE Blood Gas Patient Temperature 98.6 Blood Gas HCO3 27 mmol/L Blood Gas Base Excess 2.8 mmol/L Blood Gas Oxygen Saturation 95 % Arterial Blood pH 7.45 Arterial Blood Partial 38 mmHg Pressure CO2 Arterial Blood Partial 82 mmHg Pressure O2 Arterial Blood Oxygen Content 14.4 Vol % Arterial Blood 1.1 % Carboxyhemoglobin Arterial Blood Methemoglobin 0.8 % Blood Gas Hemoglobin 10.8 G/DL Oxygen Delivery Device VENTILATOR Blood Gas Ventilator Setting CPAP/5/+5/35% Blood Gas Inspired Oxygen 35 % White Blood Count 10.2 TH/MM3 Red Blood Count 3.05 MIL/MM3 Hemoglobin 9.7 GM/DL Hematocrit 28.6 % Mean Corpuscular Volume 93.8 FL Mean Corpuscular Hemoglobin 31.7 PG Mean Corpuscular Hemoglobin 33.9 % Concent Red Cell Distribution Width 14.3 % Platelet Count 247 TH/MM3 Mean Platelet Volume 9.5 FL Neutrophils (%) (Auto) 77.8 % Lymphocytes (%) (Auto) 9.4 % Monocytes (%) (Auto) 12.1 % Eosinophils (%) (Auto) 0.3 % Basophils (%) (Auto) 0.4 % Neutrophils # (Auto) 7.9 TH/MM3 Lymphocytes # (Auto) 1.0 TH/MM3 Monocytes # (Auto) 1.2 TH/MM3 Eosinophils # (Auto) 0.0 TH/MM3 Basophils # (Auto) 0.0 TH/MM3 CBC Comment DIFF FINAL Differential Comment Sodium Level 149 MEQ/L Potassium Level 3.4 MEQ/L Chloride Level 111 MEQ/L Carbon Dioxide Level 29.5 MEQ/L Anion Gap 9 MEQ/L Blood Urea Nitrogen 20 MG/DL Creatinine 1.24 MG/DL Estimat Glomerular Filtration 58 ML/MIN Rate Random Glucose 146 MG/DL Calcium Level 8.5 MG/DL Total Bilirubin 1.0 MG/DL Aspartate Amino Transf 55 U/L (AST/SGOT) Alanine Aminotransferase 109 U/L (ALT/SGPT) Alkaline Phosphatase 73 U/L Total Protein 5.7 GM/DL Albumin 1.9 GM/DL Assessment and Plan Assessment and Plan NSR. Will add amlodipine for BP control Mason Maxwell MD Jan 02, 2017 08:27
[2017-01-02] MEDS ORDERED: amLODIPine BESYLATE 5 MG TAB PO SCH (09:00)
[2017-01-02] MEDS ORDERED: ALTEPLASE RECOMBINANT 2 MG VIAL INTRACATH ONE (10:00)
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
[2017-01-02 11:00] LABS: C. DIFF EPI 027 PRESUMPTIVE NEGATIVE (NEGATIVE); C. DIFF TOXIN PCR NEGATIVE (NEGATIVE)
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
[2017-01-02] MEDS: ENOXAPARIN SODIUM 40 MG/0.4 ML SYRINGE SQ SCH (12:10)
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
[2017-01-02] MEDS ORDERED: PROPRANOLOL HCL 20 MG TAB PO ONE (12:30)
[2017-01-02] MEDS: PROPRANOLOL HCL 40 MG TAB PO SCH ×2 (13:38→20:36)
[2017-01-02] MEDS: RESP: ALBUTEROL 2.5 MG/IPRATROPIUM 0.5 MG NEB (PRN) NEB (14:13)
[2017-01-02 14:52] LABS: BLOOD GAS BASE EXCESS 3.5 mmol/L (-2-2); BLOOD GAS CARBOXYHEMOGLOBIN 1.4 % (0-4); BLOOD GAS HCO3 27 mmol/L (22-26); BLOOD GAS METHEMOGLOBIN 0.8 % (0-2); BLOOD GAS O2 HGB SATURATION 91 % (90-100); BLOOD GAS OXYGEN CONTENT 14.9 Vol % (12.0-20.0); BLOOD GAS PCO2 35 mmHg (38-42); BLOOD GAS PO2 63 mmHg (61-120); BLOOD GAS TOTAL HGB 11.7 G/DL (12.0-16.0); CRITICAL VALUE NO; LITER FLOW 4 L/M; OXYGEN DEVICE NASAL CANNULA; TEMP CORR TO 98.6
[2017-01-02 14:53] LABS: DRAW SITE ART LINE; STAT YES
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
[2017-01-02] MEDS: MAGNESIUM HYDROXIDE SUSP 30 ML CUP PO SCH (20:38)
[2017-01-03] VITALS (17 sets, daily range): BP systolic 112–157; BP diastolic 51–71; PULSE 59–83; RESP 22–30; TEMP 99.9–100.9; O2SAT 96–100
[2017-01-03] MEDS: ACETAMINOPHEN/HYDROcodone 325 MG/10 MG TAB PO PRN ×2 (00:36→14:53)
[2017-01-03 01:17] LABS: BLOOD GAS BASE EXCESS 1.4 mmol/L (-2-2); BLOOD GAS CARBOXYHEMOGLOBIN 1.2 % (0-4); BLOOD GAS HCO3 25 mmol/L (22-26); BLOOD GAS METHEMOGLOBIN 0.9 % (0-2); BLOOD GAS O2 HGB SATURATION 92 % (90-100); BLOOD GAS OXYGEN CONTENT 15.8 Vol % (12.0-20.0); BLOOD GAS PCO2 36 mmHg (38-42); BLOOD GAS PO2 71 mmHg (61-120); BLOOD GAS TOTAL HGB 12.1 G/DL (12.0-16.0); CRITICAL VALUE NO; DRAW SITE ALINE; LITER FLOW 4 L/M; OXYGEN DEVICE NASAL CANNULA; STAT YES; TEMP CORR TO 98.6
[2017-01-03] MEDS: RESP: ALBUTEROL 2.5 MG/IPRATROPIUM 0.5 MG NEB (PRN) NEB ×2 (01:28→03:13)
[2017-01-03] MEDS: PROPRANOLOL HCL 40 MG TAB PO SCH (01:37)
[2017-01-03] MEDS: LABETALOL HCL 100 MG/20 ML VIAL IV PRN (02:11)
[2017-01-03] MEDS: CHLORHEXIDINE GLUCONATE 2 % 1 PACK (2 CLOTHS) TOP SCH (03:17)
[2017-01-03] MEDS ORDERED: ETOMIDATE 20 MG/10 ML VIAL ONE (03:26)
--- NOTE | 2017-01-03 03:27 | PD.PROCEDR ---
Procedure Note Procedure Endotracheal intubation Called by RN related patient for respiratory distress. Patient found to be obtunded not following commands which precludes using a BiPAP. Patient has developed abdominal paradox breathing pattern. A time-out was completed verifying correct patient, procedure, site, positioning , and special equipment if applicable. The patient was placed in a flat position. Sedation was obtained using Etomidate 20mg>. The patient was easily ventilated using an ambu bag. The <[employer]/ MAC 4 BLADE& gt; was used and inserted into the oropharynx at which time there was a Grade 1 view of the vocal cords. A 8 italian endotracheal tube was inserted and visualized going through the vocal cords. The stylette was removed. Colorimetric change was visualized on the CO2 meter. Breath sounds were heard in both lung jarrett equally. The endotracheal tube was placed at 23 cm, measured at the teeth. A chest x-ray was ordered to assess for pneumothorax and verify endotracheal tube placement. Hunter Izquierdo MD Jan 03, 2017 03:27
[2017-01-03] MEDS: RESP: ALBUTEROL 2.5 MG/IPRATROPIUM 0.5 MG NEB (SCH) NEB ×4 (03:46→19:47)
[2017-01-03 04:17] LABS: AUTOMATED NEUTROPHIL # 11.2 TH/MM3 (1.8-7.7); EOSINOPHIL % 0.1 % (0.0-4.0); HEMATOCRIT 31.5 % (39.0-51.0); LYMPH % 9.5 % (9.0-44.0); LYMPHOCYTE # 1.3 TH/MM3 (1.0-4.8); MEAN CELL VOLUME 94.6 FL (80.0-100.0); MEAN CORPUSCULAR HGB CONC 32.8 % (32.0-36.0); MONO % 11.4 % (0.0-8.0); PLATELET COUNT 248 TH/MM3 (150-450); RED BLOOD COUNT 3.33 MIL/MM3 (4.50-5.90); RED CELL DISTRIBUTION WIDTH 14.7 % (11.6-17.2); WHITE BLOOD COUNT 14.1 TH/MM3 (4.0-11.0)
[2017-01-03] MEDS: PROPOFOL 1000 MG/100 ML INJ 100 ML IV SCH ×2 (04:22→22:31)
[2017-01-03] MEDS: fentaNYL DRIP 250 ML IV SCH (04:22)
[2017-01-03 04:28] LABS: HEMO FLAGS AUTO DIFF
[2017-01-03 04:37] LABS: ALT (GPT) 135 U/L (12-78); ANION GAP 8 MEQ/L (5-15); AST (GOT) 77 U/L (15-37); BLOOD UREA NITROGEN 25 MG/DL (7-18); CHLORIDE 114 MEQ/L (98-107); GLOMERULAR FILTRATION RATE 51 ML/MIN (>89); SODIUM (NA) 151 MEQ/L (136-145)
[2017-01-03 04:40] LABS: ALKALINE PHOSPHATASE 84 U/L (45-117); TOTAL BILIRUBIN ADULT 1.1 MG/DL (0.2-1.0)
--- NOTE | 2017-01-03 04:51 | RADRPT ---
EXAM DATE/TIME: 01/03/2017 03:55 [facility] COMPARISON: CHEST SINGLE AP, January 01, 2017, 2:45. INDICATIONS : E-T tube placement. MEDICAL HISTORY : None. SURGICAL HISTORY : None. ENCOUNTER: Subsequent ACUITY: 1 week PAIN SCORE: Non-responsive. LOCATION: Bilateral chest FINDINGS: Single frontal view the chest shows worsening basilar consolidations bilaterally as well as a small r ight pleural effusion. Heart remains enlarged. Tip of the endotracheal tube is approximately 5 cm fro m the caty. Nasogastric tube and central line noted. CONCLUSION: Worsening bibasilar consolidations and right effusion. Derek Ashraf Jr., MD on January 03, 2017 at 4:47 Board Certified Radiologist. This report was verified electronically.
[2017-01-03 05:01] LABS: SCAN/DIFF AUTO DIFF CONFIRMED
[2017-01-03] MEDS: FREE WATER G-TUBE SCH ×6 (05:26→23:49)
[2017-01-03] MEDS: ACETAMINOPHEN 325 MG TAB PO PRN ×2 (05:32→21:46)
[2017-01-03] MEDS ORDERED: VANCOMYCIN INJ 1,250 MG in SODIUM CHLOR 0.9% 250 ML INJ 250 ML IV ONE (06:45)
[2017-01-03] MEDS ORDERED: Vancomycin Consult Pharmacy 1 EA OTHER SCH (06:45)
[2017-01-03] MEDS: INSULIN NovoLIN REGULAR SUPPLEMENTAL SCALE SQ SCH ×4 (06:57→20:46)
[2017-01-03] MEDS: metroNIDAZOLE 500 MG INJ 100 ML IV SCH ×3 (07:02→18:49)
[2017-01-03] MEDS: CEFEPIME INJ 1,000 MG in SODIUM CHLORIDE 0.9% INJ 100 ML IV SCH ×3 (07:07→23:49)
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
[2017-01-03] MEDS ORDERED: VANCOMYCIN INJ 1,750 MG in SODIUM CHLORID 0.9% 500 ML INJ 500 ML IV ONE (08:00)
[2017-01-03] MEDS: SODIUM CHLORIDE 0.9% FLUSH 5 ML FLUSH IVF SCH ×3 (08:30→20:45)
[2017-01-03] MEDS: THIAMINE INJ 100 MG in SODIUM CHLORIDE 0.9% INJ 100 ML IV SCH (08:30)
[2017-01-03] MEDS: PANTOPRAZOLE SODIUM 40 MG VIAL IV SCH (08:30)
[2017-01-03] MEDS: CHLORHEXIDINE 0.12% (ORAL KIT) 15 ML CUP MT SCH ×2 (08:31→19:54)
[2017-01-03] MEDS: PROPRANOLOL HCL 20 MG TAB PO SCH ×3 (08:31→19:55)
[2017-01-03] MEDS: AMIODARONE 200 MG TAB PO SCH ×2 (08:32→20:45)
[2017-01-03] MEDS: MULTIVITAMIN TAB PEG SCH (08:32)
[2017-01-03] MEDS: FOLIC ACID 1 MG TAB PEG SCH (08:32)
[2017-01-03] MEDS: POLYETHYLENE GLYCOL 17 GM PKG PO SCH ×2 (08:33→20:46)
[2017-01-03] MEDS: DOCUSATE SODIUM 50 MG/SENNA 8.6 MG TAB PO SCH ×2 (08:33→20:46)
[2017-01-03] MEDS: BISACODYL 10 MG SUPP RECTAL SCH (08:33)
[2017-01-03] MEDS: LACTULOSE SYRUP 20 GM/30 ML CUP PO SCH ×2 (08:33→20:45)
[2017-01-03] MEDS: POTASSIUM CHLORIDE 20 MEQ PWD PACKET PO SCH ×2 (08:33→20:45)
[2017-01-03] MEDS: BACITRACIN TOP OINT 15 GM TUBE TOP SCH ×2 (08:34→20:47)
[2017-01-03 10:26] LABS: BLOOD, URINE MOD (NEG); GLUCOSE,URINE NEG (NEG); KETONE, URINE TRACE mg/dL (NEG); MUCUS URINE FEW /lpf (OCC); NITRITE,URINE NEG (NEG); PH, URINE 5.5 (5.0-8.5); SQUAMOUS EPITHELIAL CELL URINE <1 /hpf (0-5); TRANSITIONAL EPI CELLS, URINE <1 /hpf; URINE COLOR YELLOW (YELLW/STRAW)
[2017-01-03 10:28] LABS: COMMENT (UR) CATH-CULT NOT IND; CULTURE IF INDICATED CATH CULTURE NOT IND
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
[2017-01-03] MEDS: ENOXAPARIN SODIUM 40 MG/0.4 ML SYRINGE SQ SCH (11:50)
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
[2017-01-03] MEDS: MAGNESIUM HYDROXIDE SUSP 30 ML CUP PO SCH (20:46)
[2017-01-04] VITALS (20 sets, daily range): BP systolic 106–147; BP diastolic 50–69; PULSE 54–77; RESP 17–22; TEMP 99.3–100.2; O2SAT 95–100
[2017-01-04] MEDS: metroNIDAZOLE 500 MG INJ 100 ML IV SCH ×4 (00:24→17:50)
[2017-01-04] MEDS: PROPRANOLOL HCL 20 MG TAB PO SCH ×4 (00:57→21:37)
[2017-01-04] MEDS: CHLORHEXIDINE GLUCONATE 2 % 1 PACK (2 CLOTHS) TOP SCH (03:04)
[2017-01-04] MEDS: FREE WATER G-TUBE SCH ×5 (03:04→20:00)
[2017-01-04] MEDS: ACETAMINOPHEN 325 MG TAB PO PRN (03:25)
[2017-01-04] MEDS: RESP: ALBUTEROL 2.5 MG/IPRATROPIUM 0.5 MG NEB (SCH) NEB (03:30)
[2017-01-04] MEDS: INSULIN NovoLIN REGULAR SUPPLEMENTAL SCALE SQ SCH ×4 (06:10→21:00)
[2017-01-04 06:46] LABS: BICARBONATE 26.7 MEQ/L (21.0-32.0); POTASSIUM 3.2 MEQ/L (3.5-5.1)
[2017-01-04] MEDS: POTASSIUM CHLOR 40 MEQ PREMIX 100 ML IV PRN ×2 (06:52→11:31)
[2017-01-04 07:14] LABS: HEMATOCRIT 26.7 % (39.0-51.0); MEAN CELL VOLUME 94.2 FL (80.0-100.0); MEAN CORPUSCULAR HEMOGLOBIN 31.8 PG (27.0-34.0); MEAN CORPUSCULAR HGB CONC 33.7 % (32.0-36.0); PLATELET COUNT 261 TH/MM3 (150-450); RED BLOOD COUNT 2.84 MIL/MM3 (4.50-5.90); RED CELL DISTRIBUTION WIDTH 14.6 % (11.6-17.2); REVIEW FLAG FINAL; WHITE BLOOD COUNT 10.1 TH/MM3 (4.0-11.0)
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
[2017-01-04] MEDS: CEFEPIME INJ 1,000 MG in SODIUM CHLORIDE 0.9% INJ 100 ML IV SCH ×2 (08:30→15:59)
[2017-01-04] MEDS: PROPOFOL 1000 MG/100 ML INJ 100 ML IV SCH ×2 (08:30→19:13)
[2017-01-04] MEDS: THIAMINE INJ 100 MG in SODIUM CHLORIDE 0.9% INJ 100 ML IV SCH (08:30)
[2017-01-04] MEDS: AMIODARONE 200 MG TAB PO SCH ×2 (08:31→21:44)
[2017-01-04] MEDS: LACTULOSE SYRUP 20 GM/30 ML CUP PO SCH ×2 (08:31→21:36)
[2017-01-04] MEDS: PANTOPRAZOLE SODIUM 40 MG VIAL IV SCH (08:31)
[2017-01-04] MEDS: POTASSIUM CHLORIDE 20 MEQ PWD PACKET PO SCH ×2 (08:31→22:04)
[2017-01-04] MEDS: MULTIVITAMIN TAB PEG SCH (08:31)
[2017-01-04] MEDS: FOLIC ACID 1 MG TAB PEG SCH (08:31)
[2017-01-04] MEDS: SODIUM CHLORIDE 0.9% FLUSH 5 ML FLUSH IVF SCH ×3 (08:32→21:36)
[2017-01-04] MEDS: BACITRACIN TOP OINT 15 GM TUBE TOP SCH ×2 (08:32→21:44)
[2017-01-04] MEDS: POLYETHYLENE GLYCOL 17 GM PKG PO SCH ×2 (08:32→21:37)
[2017-01-04] MEDS: DOCUSATE SODIUM 50 MG/SENNA 8.6 MG TAB PO SCH ×2 (08:32→21:45)
[2017-01-04] MEDS: BISACODYL 10 MG SUPP RECTAL SCH (08:32)
[2017-01-04] MEDS: CHLORHEXIDINE 0.12% (ORAL KIT) 15 ML CUP MT SCH ×2 (08:33→20:00)
[2017-01-04] MEDS: VANCOMYCIN INJ 1,750 MG in SODIUM CHLORID 0.9% 500 ML INJ 500 ML IV SCH (08:33)
[2017-01-04] MEDS: RESP: ALBUTEROL 2.5 MG/IPRATROPIUM 0.5 MG NEB (PRN) NEB (09:24)
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
[2017-01-04] MEDS: ENOXAPARIN SODIUM 40 MG/0.4 ML SYRINGE SQ SCH (11:30)
[2017-01-04] MEDS: MAGNESIUM HYDROXIDE SUSP 30 ML CUP PO SCH (21:43)
[2017-01-04] MEDS: fentaNYL DRIP 250 ML IV SCH (22:51)
[2017-01-05] VITALS (18 sets, daily range): BP systolic 106–141; BP diastolic 51–73; PULSE 53–69; RESP 13–22; TEMP 98–99.5; O2SAT 99–100
[2017-01-05] MEDS: CEFEPIME INJ 1,000 MG in SODIUM CHLORIDE 0.9% INJ 100 ML IV SCH ×3 (00:32→15:37)
[2017-01-05] MEDS: metroNIDAZOLE 500 MG INJ 100 ML IV SCH ×4 (00:32→17:16)
[2017-01-05] MEDS: PROPRANOLOL HCL 20 MG TAB PO SCH ×4 (01:30→20:00)
[2017-01-05 03:39] LABS: BASOPHIL % 0.2 % (0.0-2.0); EOSINOPHIL # 0.3 TH/MM3 (0-0.4); EOSINOPHIL % 2.5 % (0.0-4.0); HEMO FLAGS DIFF FINAL; LYMPH % 14.8 % (9.0-44.0); LYMPHOCYTE # 1.5 TH/MM3 (1.0-4.8); MEAN CELL VOLUME 94.1 FL (80.0-100.0); MEAN CORPUSCULAR HEMOGLOBIN 32.3 PG (27.0-34.0); MEAN CORPUSCULAR HGB CONC 34.3 % (32.0-36.0); NEUT % 77.5 % (16.0-70.0); PLATELET COUNT 271 TH/MM3 (150-450); RED BLOOD COUNT 2.76 MIL/MM3 (4.50-5.90); RED CELL DISTRIBUTION WIDTH 14.4 % (11.6-17.2); WHITE BLOOD COUNT 10.3 TH/MM3 (4.0-11.0)
[2017-01-05] MEDS: FREE WATER G-TUBE SCH ×6 (03:46→20:00)
[2017-01-05] MEDS: CHLORHEXIDINE GLUCONATE 2 % 1 PACK (2 CLOTHS) TOP SCH (03:47)
[2017-01-05] MEDS: PROPOFOL 1000 MG/100 ML INJ 100 ML IV SCH ×2 (03:53→21:35)
[2017-01-05 03:58] LABS: ANION GAP 7 MEQ/L (5-15); AST (GOT) 35 U/L (15-37); BICARBONATE 27.5 MEQ/L (21.0-32.0); BLOOD UREA NITROGEN 20 MG/DL (7-18); CHLORIDE 115 MEQ/L (98-107); GLOMERULAR FILTRATION RATE 68 ML/MIN (>89); MAGNESIUM 2.2 MG/DL (1.5-2.5); POTASSIUM 3.6 MEQ/L (3.5-5.1); SODIUM (NA) 149 MEQ/L (136-145)
[2017-01-05 04:01] LABS: ALKALINE PHOSPHATASE 85 U/L (45-117); ALT (GPT) 100 U/L (12-78); TOTAL BILIRUBIN ADULT 0.4 MG/DL (0.2-1.0)
[2017-01-05 04:04] LABS: BLOOD GAS BASE EXCESS 0.9 mmol/L (-2-2); BLOOD GAS CARBOXYHEMOGLOBIN 1.2 % (0-4); BLOOD GAS HCO3 25 mmol/L (22-26); BLOOD GAS METHEMOGLOBIN 0.8 % (0-2); BLOOD GAS O2 HGB SATURATION 95 % (90-100); BLOOD GAS OXYGEN CONTENT 12.5 Vol % (12.0-20.0); BLOOD GAS PCO2 40 mmHg (38-42); BLOOD GAS PO2 96 mmHg (61-120); BLOOD GAS TOTAL HGB 9.2 G/DL (12.0-16.0); CRITICAL VALUE NO; OXYGEN DEVICE VENTILATOR; TEMP CORR TO 98.6
[2017-01-05 04:05] LABS: DRAW SITE ALINE; FIO2 40 %; STAT NO
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
[2017-01-05] MEDS: INSULIN NovoLIN REGULAR SUPPLEMENTAL SCALE SQ SCH ×4 (06:25→21:00)
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
[2017-01-05] MEDS: CHLORHEXIDINE 0.12% (ORAL KIT) 15 ML CUP MT SCH ×2 (08:00→21:34)
[2017-01-05] MEDS: DOCUSATE SODIUM 50 MG/SENNA 8.6 MG TAB PO SCH ×2 (09:00→21:00)
[2017-01-05] MEDS: POTASSIUM CHLORIDE 20 MEQ PWD PACKET PO SCH ×2 (09:00→21:00)
[2017-01-05] MEDS: SODIUM CHLORIDE 0.9% FLUSH 5 ML FLUSH IVF SCH ×3 (09:00→21:34)
[2017-01-05] MEDS: AMIODARONE 200 MG TAB PO SCH ×2 (09:02→21:33)
[2017-01-05] MEDS: FOLIC ACID 1 MG TAB PEG SCH (09:02)
[2017-01-05] MEDS: LACTULOSE SYRUP 20 GM/30 ML CUP PO SCH ×2 (09:03→21:33)
[2017-01-05] MEDS: BISACODYL 10 MG SUPP RECTAL SCH (09:04)
[2017-01-05] MEDS: BACITRACIN TOP OINT 15 GM TUBE TOP SCH ×2 (09:05→21:00)
[2017-01-05] MEDS: MULTIVITAMIN TAB PEG SCH (09:15)
[2017-01-05] MEDS: THIAMINE INJ 100 MG in SODIUM CHLORIDE 0.9% INJ 100 ML IV SCH (09:15)
[2017-01-05] MEDS: PANTOPRAZOLE SODIUM 40 MG VIAL IV SCH (09:15)
[2017-01-05] MEDS: VANCOMYCIN INJ 1,750 MG in SODIUM CHLORID 0.9% 500 ML INJ 500 ML IV SCH (09:15)
[2017-01-05] MEDS: POLYETHYLENE GLYCOL 17 GM PKG PO SCH ×2 (09:15→21:33)
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
[2017-01-05] MEDS: ENOXAPARIN SODIUM 40 MG/0.4 ML SYRINGE SQ SCH (13:02)
--- NOTE | 2017-01-05 13:19 | PD.CARD.PN ---
Subjective Subjective Remarks Awake remains in NSR Objective Vital Signs / I&O Vital Signs Date Time Temp Pulse Resp B/P Pulse Ox O2 Delivery O2 Flow Rate FiO2 01/05/17 12:34 100 40 01/05/17 10:00 60 01/05/17 09:19 100 40 01/05/17 09:19 100 Ventilator 40 01/05/17 08:00 40 01/05/17 08:00 99.4 58 16 136/58 100 01/05/17 08:00 58 01/05/17 07:00 100 Mechanical Ventilator 40 01/05/17 06:50 40 01/05/17 06:00 56 01/05/17 04:00 40 01/05/17 04:00 98.2 69 22 108/73 100 01/05/17 04:00 67 01/05/17 03:31 99 40 01/05/17 02:00 61 01/05/17 00:00 63 01/05/17 00:00 99.5 62 22 141/57 100 01/05/17 00:00 40 01/04/17 23:29 99 40 01/04/17 22:00 62 01/04/17 20:04 95 40 01/04/17 20:00 99.9 60 22 106/51 99 01/04/17 20:00 40 01/04/17 20:00 57 01/04/17 19:00 98 Mechanical Ventilator 40 01/04/17 18:00 77 01/04/17 16:39 98 40 01/04/17 16:00 58 01/04/17 16:00 40 01/04/17 16:00 99.3 58 22 107/55 99 01/04/17 15:20 100 40 01/04/17 14:00 62 I/O 01/04/17 01/04/17 01/04/17 01/05/17 01/05/17 01/05/17 07:00 15:00 23:00 07:00 15:00 23:00 Intake Total 666 ml 1439 ml 1580 ml 1299 ml Output Total 450 ml 425 ml 400 ml 450 ml Balance 216 ml 1014 ml 1180 ml 849 ml IV Total 505 ml 1268 ml 1200 ml 380 ml Tube Feeding 161 ml 171 ml 380 ml 319 ml Other 600 ml Output Urine Total 350 ml 425 ml 400 ml 450 ml Stool Total 100 ml 0 ml # Bowel Movements 2 0 Physical Exam HR 80. NSR Laboratory Laboratory Tests Test 01/05/17 01/05/17 03:30 03:55 White Blood Count 10.3 TH/MM3 Red Blood Count 2.76 MIL/MM3 Hemoglobin 8.9 GM/DL Hematocrit 26.0 % Mean Corpuscular Volume 94.1 FL Mean Corpuscular Hemoglobin 32.3 PG Mean Corpuscular Hemoglobin 34.3 % Concent Red Cell Distribution Width 14.4 % Platelet Count 271 TH/MM3 Mean Platelet Volume 9.2 FL Neutrophils (%) (Auto) 77.5 % Lymphocytes (%) (Auto) 14.8 % Monocytes (%) (Auto) 5.0 % Eosinophils (%) (Auto) 2.5 % Basophils (%) (Auto) 0.2 % Neutrophils # (Auto) 8.0 TH/MM3 Lymphocytes # (Auto) 1.5 TH/MM3 Monocytes # (Auto) 0.5 TH/MM3 Eosinophils # (Auto) 0.3 TH/MM3 Basophils # (Auto) 0.0 TH/MM3 CBC Comment DIFF FINAL Differential Comment Sodium Level 149 MEQ/L Potassium Level 3.6 MEQ/L Chloride Level 115 MEQ/L Carbon Dioxide Level 27.5 MEQ/L Anion Gap 7 MEQ/L Blood Urea Nitrogen 20 MG/DL Creatinine 1.08 MG/DL Estimat Glomerular Filtration 68 ML/MIN Rate Random Glucose 158 MG/DL Calcium Level 8.0 MG/DL Phosphorus Level 2.3 MG/DL Magnesium Level 2.2 MG/DL Total Bilirubin 0.4 MG/DL Aspartate Amino Transf 35 U/L (AST/SGOT) Alanine Aminotransferase 100 U/L (ALT/SGPT) Alkaline Phosphatase 85 U/L Total Protein 5.4 GM/DL Albumin 1.9 GM/DL Blood Gas Puncture Site RAIMUNDO Blood Gas Patient Temperature 98.6 Blood Gas HCO3 25 mmol/L Blood Gas Base Excess 0.9 mmol/L Blood Gas Oxygen Saturation 95 % Arterial Blood pH 7.41 Arterial Blood Partial 40 mmHg Pressure CO2 Arterial Blood Partial 96 mmHg Pressure O2 Arterial Blood Oxygen Content 12.5 Vol % Arterial Blood 1.2 % Carboxyhemoglobin Arterial Blood Methemoglobin 0.8 % Blood Gas Hemoglobin 9.2 G/DL Oxygen Delivery Device VENTILATOR Blood Gas Ventilator Setting SEE COMMENT Blood Gas Inspired Oxygen 40 % Assessment and Plan Assessment and Plan NSR. BP well controlled. Will see prn. Please call if needed Mason Maxwell MD Jan 05, 2017 13:19
[2017-01-05] MEDS ORDERED: VECURONIUM BROMIDE 10 MG VIAL IV PUSH ONE (14:30)
[2017-01-05] MEDS: MAGNESIUM HYDROXIDE SUSP 30 ML CUP PO SCH (21:33)
[2017-01-05] MEDS: fentaNYL DRIP 250 ML IV SCH (21:35)
[2017-01-06] VITALS (17 sets, daily range): BP systolic 107–134; BP diastolic 57–68; PULSE 52–69; RESP 16–17; TEMP 98–99.4; O2SAT 95–100
[2017-01-06] MEDS: metroNIDAZOLE 500 MG INJ 100 ML IV SCH ×4 (00:39→20:31)
[2017-01-06] MEDS: CEFEPIME INJ 1,000 MG in SODIUM CHLORIDE 0.9% INJ 100 ML IV SCH ×3 (00:39→17:06)
[2017-01-06] MEDS: PROPRANOLOL HCL 20 MG TAB PO SCH ×4 (01:21→20:00)
[2017-01-06] MEDS: CHLORHEXIDINE GLUCONATE 2 % 1 PACK (2 CLOTHS) TOP SCH (04:00)
[2017-01-06] MEDS: FREE WATER G-TUBE SCH ×6 (04:00→20:00)
[2017-01-06] MEDS: PROPOFOL 1000 MG/100 ML INJ 100 ML IV SCH ×2 (04:37→11:44)
[2017-01-06 05:17] LABS: AUTOMATED NEUTROPHIL # 8.8 TH/MM3 (1.8-7.7); BASOPHIL # 0.1 TH/MM3 (0-0.2); BASOPHIL % 0.8 % (0.0-2.0); EOSINOPHIL # 0.3 TH/MM3 (0-0.4); EOSINOPHIL % 2.7 % (0.0-4.0); HEMATOCRIT 27.2 % (39.0-51.0); HEMO FLAGS DIFF FINAL; LYMPH % 11.7 % (9.0-44.0); LYMPHOCYTE # 1.3 TH/MM3 (1.0-4.8); MEAN CELL VOLUME 95.3 FL (80.0-100.0); MEAN CORPUSCULAR HEMOGLOBIN 32.4 PG (27.0-34.0); MONO % 5.8 % (0.0-8.0); PLATELET COUNT 274 TH/MM3 (150-450); RED BLOOD COUNT 2.85 MIL/MM3 (4.50-5.90); RED CELL DISTRIBUTION WIDTH 14.6 % (11.6-17.2); WHITE BLOOD COUNT 11.1 TH/MM3 (4.0-11.0)
[2017-01-06 05:26] LABS: BLOOD GAS BASE EXCESS 1.2 mmol/L (-2-2); BLOOD GAS CARBOXYHEMOGLOBIN 1.3 % (0-4); BLOOD GAS HCO3 25 mmol/L (22-26); BLOOD GAS METHEMOGLOBIN 0.8 % (0-2); BLOOD GAS O2 HGB SATURATION 96 % (90-100); BLOOD GAS OXYGEN CONTENT 15.7 Vol % (12.0-20.0); BLOOD GAS PCO2 41 mmHg (38-42); BLOOD GAS PO2 100 mmHg (61-120); BLOOD GAS TOTAL HGB 11.6 G/DL (12.0-16.0); CRITICAL VALUE NO; OXYGEN DEVICE VENTILATOR; TEMP CORR TO 98.6
[2017-01-06 05:27] LABS: DRAW SITE ART LINE; FIO2 40 %; NUMBER OF ARTERIAL PUNCTURES 0; STAT NO
[2017-01-06 05:32] LABS: ALT (GPT) 77 U/L (12-78); ANION GAP 8 MEQ/L (5-15); AST (GOT) 33 U/L (15-37); BICARBONATE 26.4 MEQ/L (21.0-32.0); BLOOD UREA NITROGEN 15 MG/DL (7-18); CHLORIDE 115 MEQ/L (98-107); GLOMERULAR FILTRATION RATE 80 ML/MIN (>89); MAGNESIUM 2.2 MG/DL (1.5-2.5); POTASSIUM 3.7 MEQ/L (3.5-5.1); SODIUM (NA) 149 MEQ/L (136-145)
[2017-01-06 05:34] LABS: ALKALINE PHOSPHATASE 103 U/L (45-117); TOTAL BILIRUBIN ADULT 0.4 MG/DL (0.2-1.0)
[2017-01-06] MEDS: INSULIN NovoLIN REGULAR SUPPLEMENTAL SCALE SQ SCH ×3 (05:43→21:00)
--- NOTE | 2017-01-06 06:31 | RADRPT ---
EXAM DATE/TIME: 01/06/2017 04:47 [place] COMPARISON: CHEST SINGLE AP, January 05, 2017, 5:38. INDICATIONS : Shortness of breath. MEDICAL HISTORY : None. SURGICAL HISTORY : None. ENCOUNTER: Subsequent ACUITY: 1 week PAIN SCORE: Non-responsive. LOCATION: Bilateral chest FINDINGS: Endotracheal tube is in satisfactory position. NG enters stomach. A left central line with tip in sup erior vena cava. Basilar airspace disease and effusion, right greater than left similar to January 05. CONCLUSION: 1. Stable exam since January 05 with support apparatus in satisfactory position. Ori Mathis MD on January 06, 2017 at 6:29 Board Certified Radiologist. This report was verified electronically.
[2017-01-06] MEDS ORDERED: PHARMACY ORDERED LAB XX ONE (08:45)
[2017-01-06] MEDS: BACITRACIN TOP OINT 15 GM TUBE TOP SCH ×2 (09:00→20:31)
[2017-01-06] MEDS ORDERED: PROPOFOL 200 MG/20 ML AMP IV ONE (09:42)
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
--- NOTE | 2017-01-06 10:12 | GIPROC ---
[facility] [address] [facility] [address]. [facility] [place], [address] EGD WITH PEG PROCEDURE REPORT EXAM DATE: 01/06/2017 PATIENT NAME: Mason Perez MR#: [id number] BIRTHDATE: 1945 ATTENDING: Martin Chopra MD ORDER #: [id number] CLIENT ACCOUNT ASSISTANT: Alok Overton CST and Roberto Drake RN STATUS: inpatient INDICATIONS: The patient is a 71 yr old male here for an EGD with PEG due to dysphagia PROCEDURE PERFORMED: EGD with biopsy EGD with PEG placement MEDICATIONS: None and Per Anesthesia. TOPICAL ANESTHETIC: CONSENT: The patient understands the risks and benefits of the procedure and understands that these risks include, but are not limited to: sedation, allergic reaction, infection, perforation and/or bleeding. Alternative means of evaluation and treatment include, among others: physical exam, x-rays, and/or surgical intervention. The patient elects to proceed with this endoscopic procedure. medical equipment was checked for proper function. Hand hygiene and appropriate measures for infection prevention was taken. After the risks, benefits and alternatives of the procedure were thoroughly explained, Informed consent was verified, confirmed and timeout was successfully executed by the treatment team. The patient was anesthetized with topical anesthesia and the endoscope was introduced through the mouth and advanced to the second portion of the duodenum. The instrument was slowly withdrawn as the mucosa was fully examined. Wolfe's esophagus was found in the distal esophagus. This was a 2-3 cm irregularity of the Z line Multiple biopsies were obtained and sent to pathology. The stomach was entered and closely examined. The antrum, angularis, and lesser curvature were well visualized, including a retroflexed view of the cardia and fundus. The stomach wall was normally distensable. The scope passed easily through the pylorus into the duodenum. 20 fr Percutaneous endoscopic gastrostomy tube was placed using standard technique. Successful PEG placement The duodenal bulb was normal in appearance, as was the postbulbar duodenum. The stomach was then inflated with air, and by a combination of transillumination and manual palpation, the site for the gastrostomy tube placement was selected and marked on the anterior abdominal wall. The skin of the anterior abdomen was surgically prepped and draped with sterile towels. Utilizing strict sterile technique, the selected site was then anesthetized with 1% xylocaine by injection into the skin and subcutaneous tissue. A 1 cm incision was made through the skin and subcutaneous tissue, and the needle/cannula assembly was then passed through the abdominal wall and through the anterior wall of the stomach, maintaining visualization with the endoscope. A snare device previously placed through the instrument channel was then opened and placed around the cannula, the needle was removed, and the insertion wire was passed through the cannula and into the stomach lumen. The snare was then loosened from the cannula, and repositioned to snare the insertion wire. The snare was then pulled up to the endoscope distal tip, and the scope was then withdrawn bringing with it the snare and insertion wire. The insertion wire was then released from the snare, and then loop-attached to the gastrostomy tube. Using the "pull technique", the G-tube was then pulled into place by traction on the insertion wire at the abdominal wall end. The G-tube insertion site was then cleansed once again, and the external bolster was placed over the tube to secure it to the abdominal wall. A sterile dressing was then applied, and the procedure terminated. no abnormalities The gastroscope was then slowly withdrawn and removed. ADVERSE EVENT: There were no complications. IMPRESSIONS: 1. Wolfe's esophagus was found in the distal esophagus 2. 20 fr The stomach was entered and closely examined. The antrum, angularis, and lesser curvature were well visualized, including a retroflexed view of the cardia and fundus. The stomach wall was normally distensable. The scope passed easily through the pylorus into the duodenum. 3. The duodenal bulb was normal in appearance, as was the postbulbar duodenum. 4. No abnormalities RECOMMENDATIONS: 1. PEG recomendations: 1- NPO for 6 hours except for meds 2- Flush PEG tube every 6 hours with water and after each PEG feeding 3- May resume regular diet in the morning 4- May use Ensure or Boost etc. for PEG tube feeding 2. Await biopsy results. Biopsy results will not be ready for 7-10 days. If you don't hear from us in two weeks, call our office for biopsy results. 3. Continue PPI 4. Follow-up: GI clinic 4 week(s) REPEAT EXAM: Return 1 year(s) EGD Martin Chopra MD eSigned: Martin Chopra MD 01/06/2017 10:12 AM cc: PATIENT NAME: AldayessyMason MR#: [id number]
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
[2017-01-06] MEDS: CHLORHEXIDINE 0.12% (ORAL KIT) 15 ML CUP MT SCH ×2 (10:44→20:00)
[2017-01-06] MEDS: LACTULOSE SYRUP 20 GM/30 ML CUP PO SCH ×2 (10:44→20:00)
[2017-01-06] MEDS: POTASSIUM CHLORIDE 20 MEQ PWD PACKET PO SCH ×2 (10:45→20:31)
[2017-01-06] MEDS: THIAMINE INJ 100 MG in SODIUM CHLORIDE 0.9% INJ 100 ML IV SCH (10:45)
[2017-01-06] MEDS: POLYETHYLENE GLYCOL 17 GM PKG PO SCH ×2 (10:45→20:00)
[2017-01-06] MEDS: PANTOPRAZOLE SODIUM 40 MG VIAL IV SCH (10:45)
[2017-01-06] MEDS: MULTIVITAMIN TAB PEG SCH (10:45)
[2017-01-06] MEDS: AMIODARONE 200 MG TAB PO SCH ×2 (10:45→20:31)
[2017-01-06] MEDS: SODIUM CHLORIDE 0.9% FLUSH 5 ML FLUSH IVF SCH ×3 (10:46→20:31)
[2017-01-06] MEDS: FOLIC ACID 1 MG TAB PEG SCH (10:46)
[2017-01-06] MEDS: DOCUSATE SODIUM 50 MG/SENNA 8.6 MG TAB PO SCH ×2 (10:46→20:00)
[2017-01-06] MEDS: BISACODYL 10 MG SUPP RECTAL SCH (10:46)
[2017-01-06] MEDS: ENOXAPARIN SODIUM 40 MG/0.4 ML SYRINGE SQ SCH (11:44)
[2017-01-06] MEDS: VANCOMYCIN INJ 1,750 MG in SODIUM CHLORID 0.9% 500 ML INJ 500 ML IV SCH (11:59)
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
--- NOTE | 2017-01-06 15:49 | PD.OP ---
Operative Report Preoperative Diagnosis: (1) Traumatic brain injury Postoperative Diagnosis: (1) Traumatic brain injury Procedure: Percutaneous tracheostomy,direct bronchoscopy Anesthesia: propofol,fentanyl,rocuronium Surgeon: Leanne Valenzuela Assistant To The Ceo(s): Bronchoscopy- Operation and Findings: Patient's anterior neck was sterilely prepped and draped.Transverse incision was performed 2 fingerbreadth above sternal notch.Bronchoscope was inserted and the trachea was lavaged.Under direct vision the trachea was penetrated and serially dilated first with the small than with the blue rhino dilaters.Under direct vision a 8# Shiley was inserted.Position was ascertained with direct bronchoscopy.The trach was secured with 4 corner sutures using 2-0 prolene and the trach collar.Patient tolerated procedure well. Leanne Valenzuela MD Jan 06, 2017 15:49
[2017-01-06] MEDS: MAGNESIUM HYDROXIDE SUSP 30 ML CUP PO SCH (20:00)
[2017-01-07] VITALS (21 sets, daily range): BP systolic 123–172; BP diastolic 62–91; PULSE 56–78; RESP 10–18; TEMP 98.3–99.4; O2SAT 95–100
[2017-01-07] MEDS: metroNIDAZOLE 500 MG INJ 100 ML IV SCH ×2 (00:17→06:24)
[2017-01-07] MEDS: CEFEPIME INJ 1,000 MG in SODIUM CHLORIDE 0.9% INJ 100 ML IV SCH ×2 (00:17→09:03)
[2017-01-07] MEDS: PROPOFOL 1000 MG/100 ML INJ 100 ML IV SCH ×2 (00:21→04:17)
[2017-01-07] MEDS: PROPRANOLOL HCL 20 MG TAB PO SCH ×4 (02:00→21:53)
[2017-01-07] MEDS: FREE WATER G-TUBE SCH ×5 (04:00→20:00)
[2017-01-07] MEDS: CHLORHEXIDINE GLUCONATE 2 % 1 PACK (2 CLOTHS) TOP SCH (04:00)
[2017-01-07] MEDS: fentaNYL DRIP 250 ML IV SCH (04:17)
[2017-01-07 05:18] LABS: BICARBONATE 25.4 MEQ/L (21.0-32.0); POTASSIUM 3.9 MEQ/L (3.5-5.1)
[2017-01-07 05:21] LABS: HEMATOCRIT 28.1 % (39.0-51.0); MEAN CELL VOLUME 96.5 FL (80.0-100.0); MEAN CORPUSCULAR HEMOGLOBIN 31.9 PG (27.0-34.0); PLATELET COUNT 304 TH/MM3 (150-450); RED BLOOD COUNT 2.91 MIL/MM3 (4.50-5.90); RED CELL DISTRIBUTION WIDTH 14.8 % (11.6-17.2); REVIEW FLAG FINAL
[2017-01-07] MEDS: INSULIN NovoLIN REGULAR SUPPLEMENTAL SCALE SQ SCH ×4 (05:53→21:00)
[2017-01-07] MEDS: LACTULOSE SYRUP 20 GM/30 ML CUP PO SCH (09:00)
[2017-01-07] MEDS: DOCUSATE SODIUM 50 MG/SENNA 8.6 MG TAB PO SCH ×2 (09:00→21:40)
[2017-01-07] MEDS: POLYETHYLENE GLYCOL 17 GM PKG PO SCH (09:00)
[2017-01-07] MEDS ORDERED: VANCOMYCIN INJ 2,000 MG in SODIUM CHLORID 0.9% 500 ML INJ 500 ML IV SCH (09:00)
[2017-01-07] MEDS: BISACODYL 10 MG SUPP RECTAL SCH (09:00)
[2017-01-07] MEDS: THIAMINE INJ 100 MG in SODIUM CHLORIDE 0.9% INJ 100 ML IV SCH (09:02)
[2017-01-07] MEDS: PANTOPRAZOLE SODIUM 40 MG VIAL IV SCH (09:03)
[2017-01-07] MEDS: AMIODARONE 200 MG TAB PO SCH ×2 (09:03→21:40)
[2017-01-07] MEDS: FOLIC ACID 1 MG TAB PEG SCH (09:04)
[2017-01-07] MEDS: MULTIVITAMIN TAB PEG SCH (09:04)
[2017-01-07] MEDS: CHLORHEXIDINE 0.12% (ORAL KIT) 15 ML CUP MT SCH ×2 (09:04→20:00)
[2017-01-07] MEDS: SODIUM CHLORIDE 0.9% FLUSH 5 ML FLUSH IVF SCH ×3 (09:05→21:00)
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
[2017-01-07] MEDS: BACITRACIN TOP OINT 15 GM TUBE TOP SCH ×2 (09:07→21:00)
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
[2017-01-07] MEDS ORDERED: FUROSEMIDE 40 MG/4 ML VIAL IV PUSH ONE (10:15)
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
[2017-01-07] MEDS: ENOXAPARIN SODIUM 40 MG/0.4 ML SYRINGE SQ SCH (13:41)
[2017-01-07] MEDS: AMANTADINE HCL SOLN 100 MG/10 ML UDC PEG SCH (13:41)
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
[2017-01-07] MEDS: ACETAMINOPHEN/HYDROcodone 325 MG/10 MG TAB PO PRN ×3 (14:04→21:53)
--- NOTE | 2017-01-07 16:44 | RADRPT ---
EXAM DATE/TIME: 01/07/2017 15:11 [place] COMPARISON: No previous studies available for comparison. INDICATIONS : Right arm swelling. MEDICAL HISTORY : Hypertension. Renal calculi. Syncope. Measles. SURGICAL HISTORY : None. ENCOUNTER: Initial ACUITY: 1 day PAIN SCORE: Non-responsive LOCATION: Right arm. FINDINGS: Extensive thrombosis is seen involving both the cephalic and basalic veins. This extends up to the s [place]. Axillary vein appears patent. CONCLUSION: Venous thrombosis as described above. Leo Jaquez MD FACR on January 07, 2017 at 16:42 Board Certified Radiologist. This report was verified electronically.
[2017-01-07] MEDS: BENEPROTEIN POWDER 1 PACK G-TUBE SCH (17:24)
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
[2017-01-07] MEDS: FAMOTIDINE 20 MG TAB PO SCH (21:40)
[2017-01-08] VITALS (18 sets, daily range): BP systolic 127–173; BP diastolic 76–84; PULSE 60–96; RESP 15–27; TEMP 97.9–99.9; O2SAT 93–100
[2017-01-08] MEDS: PROPRANOLOL HCL 20 MG TAB PO SCH ×2 (02:45→08:39)
[2017-01-08] MEDS: FREE WATER G-TUBE SCH ×7 (03:26→22:54)
[2017-01-08] MEDS: CHLORHEXIDINE GLUCONATE 2 % 1 PACK (2 CLOTHS) TOP SCH (03:28)
[2017-01-08 04:21] LABS: HEMATOCRIT 29.9 % (39.0-51.0); MEAN CELL VOLUME 95.2 FL (80.0-100.0); MEAN CORPUSCULAR HEMOGLOBIN 31.1 PG (27.0-34.0); MEAN CORPUSCULAR HGB CONC 32.6 % (32.0-36.0); PLATELET COUNT 354 TH/MM3 (150-450); RED BLOOD COUNT 3.14 MIL/MM3 (4.50-5.90); RED CELL DISTRIBUTION WIDTH 14.5 % (11.6-17.2); REVIEW FLAG FINAL; WHITE BLOOD COUNT 12.4 TH/MM3 (4.0-11.0)
[2017-01-08 04:45] LABS: BICARBONATE 31.2 MEQ/L (21.0-32.0); POTASSIUM 3.2 MEQ/L (3.5-5.1)
[2017-01-08] MEDS: AMANTADINE HCL SOLN 100 MG/10 ML UDC PEG SCH ×2 (05:46→11:50)
[2017-01-08] MEDS: INSULIN NovoLIN REGULAR SUPPLEMENTAL SCALE SQ SCH ×4 (05:47→20:20)
[2017-01-08] MEDS: CHLORHEXIDINE 0.12% (ORAL KIT) 15 ML CUP MT SCH ×2 (08:00→20:19)
[2017-01-08] MEDS: FOLIC ACID 1 MG TAB PEG SCH (08:39)
[2017-01-08] MEDS: THIAMINE INJ 100 MG in SODIUM CHLORIDE 0.9% INJ 100 ML IV SCH (08:39)
[2017-01-08] MEDS: BENEPROTEIN POWDER 1 PACK G-TUBE SCH ×3 (08:39→17:46)
[2017-01-08] MEDS: SODIUM CHLORIDE 0.9% FLUSH 5 ML FLUSH IVF SCH ×3 (08:39→20:20)
[2017-01-08] MEDS: MULTIVITAMIN TAB PEG SCH (08:39)
[2017-01-08] MEDS: BACITRACIN TOP OINT 15 GM TUBE TOP SCH ×2 (08:40→20:20)
[2017-01-08] MEDS: DOCUSATE SODIUM 50 MG/SENNA 8.6 MG TAB PO SCH ×2 (08:40→20:20)
[2017-01-08] MEDS: BISACODYL 10 MG SUPP RECTAL SCH (08:40)
[2017-01-08] MEDS: FAMOTIDINE 20 MG TAB PO SCH (08:40)
[2017-01-08] MEDS: AMIODARONE 200 MG TAB PO SCH (08:40)
[2017-01-08] MEDS: ACETAMINOPHEN/HYDROcodone 325 MG/10 MG TAB PO PRN ×4 (08:40→20:19)
[2017-01-08] MEDS: POTASSIUM PHOSPHATE INJ 30 MMOL in SODIUM CHLOR 0.9% 250 ML INJ 250 ML IV PRN (08:41)
[2017-01-08] MEDS ORDERED: LACTULOSE SYRUP 20 GM/30 ML CUP PO SCH (09:00)
[2017-01-08] MEDS ORDERED: VANCOMYCIN INJ 2,000 MG in SODIUM CHLORID 0.9% 500 ML INJ 500 ML IV SCH (09:00)
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
[2017-01-08] MEDS ORDERED: POTASSIUM CHLORIDE 20 MEQ PWD PACKET PO ONE (11:00)
[2017-01-08] MEDS: POTASSIUM PHOSPHATE/SODIUM PHOSPHATE 250 MG TAB PEG SCH ×2 (11:44→17:46)
[2017-01-08] MEDS: ENOXAPARIN SODIUM 40 MG/0.4 ML SYRINGE SQ SCH (11:50)
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
[2017-01-08] MEDS: hydrALAZINE HCL 20 MG/ML VIAL IV PUSH PRN (12:27)
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
[2017-01-08] MEDS: PROPRANOLOL HCL 20 MG TAB PEG SCH ×2 (14:00→20:19)
[2017-01-08] MEDS: RESP: ALBUTEROL 2.5 MG/IPRATROPIUM 0.5 MG NEB (SCH) NEB ×2 (16:20→19:42)
[2017-01-08 19:38] LABS: POTASSIUM 3.6 MEQ/L (3.5-5.1)
[2017-01-08] MEDS: AMIODARONE 200 MG TAB PEG SCH (20:20)
[2017-01-08] MEDS: FAMOTIDINE 20 MG TAB PEG SCH (20:20)
[2017-01-08] MEDS: LABETALOL HCL 100 MG/20 ML VIAL IV PRN (23:59)
[2017-01-09] VITALS (19 sets, daily range): BP systolic 130–165; BP diastolic 65–81; PULSE 60–95; RESP 10–18; TEMP 98.9–100.1; O2SAT 94–100
[2017-01-09] MEDS: PROPRANOLOL HCL 20 MG TAB PEG SCH ×4 (02:27→19:39)
[2017-01-09] MEDS: FREE WATER G-TUBE SCH ×6 (02:27→21:21)
[2017-01-09] MEDS: RESP: ALBUTEROL 2.5 MG/IPRATROPIUM 0.5 MG NEB (SCH) NEB ×4 (03:54→20:11)
[2017-01-09] MEDS: CHLORHEXIDINE GLUCONATE 2 % 1 PACK (2 CLOTHS) TOP SCH (03:58)
[2017-01-09] MEDS: ACETAMINOPHEN/HYDROcodone 325 MG/10 MG TAB PO PRN ×4 (03:59→23:09)
[2017-01-09 04:28] LABS: AUTOMATED NEUTROPHIL # 10.6 TH/MM3 (1.8-7.7); BASOPHIL # 0.3 TH/MM3 (0-0.2); BASOPHIL % 2.2 % (0.0-2.0); EOSINOPHIL # 0.2 TH/MM3 (0-0.4); EOSINOPHIL % 1.2 % (0.0-4.0); HEMATOCRIT 28.9 % (39.0-51.0); HEMO FLAGS DIFF FINAL; LYMPH % 11.2 % (9.0-44.0); LYMPHOCYTE # 1.5 TH/MM3 (1.0-4.8); MEAN CELL VOLUME 94.8 FL (80.0-100.0); MEAN CORPUSCULAR HEMOGLOBIN 31.6 PG (27.0-34.0); MEAN CORPUSCULAR HGB CONC 33.3 % (32.0-36.0); MONO % 6.6 % (0.0-8.0); NEUT % 78.8 % (16.0-70.0); PLATELET COUNT 370 TH/MM3 (150-450); RED BLOOD COUNT 3.05 MIL/MM3 (4.50-5.90); RED CELL DISTRIBUTION WIDTH 14.4 % (11.6-17.2); WHITE BLOOD COUNT 13.5 TH/MM3 (4.0-11.0)
[2017-01-09 04:41] LABS: BICARBONATE 32.7 MEQ/L (21.0-32.0); MAGNESIUM 2.1 MG/DL (1.5-2.5); POTASSIUM 3.6 MEQ/L (3.5-5.1)
[2017-01-09] MEDS: AMANTADINE HCL SOLN 100 MG/10 ML UDC PEG SCH ×2 (05:15→11:11)
[2017-01-09] MEDS: INSULIN NovoLIN REGULAR SUPPLEMENTAL SCALE SQ SCH ×4 (05:15→21:00)
[2017-01-09] MEDS: POTASSIUM PHOSPHATE/SODIUM PHOSPHATE 250 MG TAB PEG SCH ×2 (05:15)
--- NOTE | 2017-01-09 06:56 | RADRPT ---
EXAM DATE/TIME: 01/09/2017 06:18 [place] COMPARISON: CHEST SINGLE AP, January 06, 2017, 4:47. INDICATIONS : Shortness of breath. MEDICAL HISTORY : None. SURGICAL HISTORY : None. ENCOUNTER: Initial ACUITY: 2 weeks PAIN SCORE: Non-responsive. LOCATION: chest FINDINGS: AP views of the chest demonstrate a normal-sized cardiac silhouette. Tracheostomy is now present. Antonio gs are underinflated. There is a right pleural-based opacity and airspace consolidation throughout th e right mid and lower lung zone. No pneumothorax is visualized. CONCLUSION: Persistent small to moderate size right pleural effusion. There is increased consolidation in the rig ht mid and lower lung zones. Brian Hammer MD on January 09, 2017 at 6:53 Board Certified Radiologist. This report was verified electronically.
[2017-01-09] MEDS ORDERED: MIDAZOLAM HCL 5 MG/5 ML VIAL IV PUSH ONE (08:00)
[2017-01-09] MEDS ORDERED: ROCURONIUM INJ 100 MG/10 ML VIAL IV ONE (08:00)
[2017-01-09] MEDS: DOCUSATE SODIUM 50 MG/SENNA 8.6 MG TAB PO SCH ×2 (08:01→19:40)
[2017-01-09] MEDS: FOLIC ACID 1 MG TAB PEG SCH (08:01)
[2017-01-09] MEDS: CHLORHEXIDINE 0.12% (ORAL KIT) 15 ML CUP MT SCH ×2 (08:01→19:40)
[2017-01-09] MEDS: MULTIVITAMIN TAB PEG SCH (08:01)
[2017-01-09] MEDS: AMIODARONE 200 MG TAB PEG SCH ×2 (08:01→09:19)
[2017-01-09] MEDS: THIAMINE HCL 100 MG TAB PEG SCH (08:01)
[2017-01-09] MEDS: FAMOTIDINE 20 MG TAB PEG SCH ×2 (08:01→19:39)
[2017-01-09] MEDS: BISACODYL 10 MG SUPP RECTAL SCH (08:02)
[2017-01-09] MEDS: SODIUM CHLORIDE 0.9% FLUSH 5 ML FLUSH IVF SCH ×3 (08:02→19:40)
[2017-01-09] MEDS: LACTULOSE SYRUP 20 GM/30 ML CUP PEG SCH (08:02)
[2017-01-09] MEDS: BENEPROTEIN POWDER 1 PACK G-TUBE SCH ×3 (08:02→17:11)
[2017-01-09] MEDS: BACITRACIN TOP OINT 15 GM TUBE TOP SCH ×2 (08:02→21:00)
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
[2017-01-09] MEDS ORDERED: PHARMACY ORDERED LAB XX ONE (08:45)
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
[2017-01-09] MEDS: VALPROIC ACID SYRUP 250 MG/5 ML UDC PO SCH ×2 (11:11→19:39)
[2017-01-09] MEDS: POTASSIUM PHOSPHATE/SODIUM PHOSPHATE 250 MG TAB PO SCH ×3 (11:11→22:48)
[2017-01-09] MEDS: ENOXAPARIN SODIUM 40 MG/0.4 ML SYRINGE SQ SCH (11:12)
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
--- NOTE | 2017-01-09 13:06 | PD.PROCEDR ---
Procedure Note Procedure DATE: 01/09/2017 Fiberoptic bronchoscopy: INDICATION: Acute hypoxemia CONSENT Informed consent for procedure was not obtained from family as this was considered an emergent event. DESCRIPTION OF THE PROCEDURE The patient was placed at 30. Ventilator was using PRVC ventilation with FiO2 100%. Patient was anesthetized using fentanyl at 50 , Versed 5 mg.. Paralytic provider was rocuronium and 50 mg IV 1. I entered the 8.0 Shiley cuffed tracheostomy using a fiberoptic bronchoscope. The bronchoscope was advanced to the caty which was sharp. It was then advanced to the left mainstem and its subsegments segments, Left upper lingula and lower lobe were visualized. The mucosa was was hyperemic. The bronchials were hyperdynamic.. There were no other findings including evidence of mass, anatomic distortions or hemorrhage. The bronchoscope was subsequently withdrawn and advanced into the right mainstem. Each segment was evaluated and were well visualized. The right upper lobe anatomy was within normal limits. No specific masses or other lesions were identified throughout the tracheobronchial tree on the right. The bronchoscope was then advanced to the bronchus intermedius to the right middle and right lower lobe. No lesions were identified. Wedged in the right middle lobe and 30 cc of sterile saline lavage with minimal mucus plugging..The mucosa was hyperemic and the bronchials were hyperdynamic.. Scope was withdrawn and procedure was halted. Saturations remain between 98 and 100% throughout the procedure. ESTIMATED BLOOD LOSS: Minimal COMPLICATIONS: No apparent complications. Alex Ferrari MD Jan 09, 2017 13:06
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
--- NOTE | 2017-01-09 15:05 | RADRPT ---
EXAM DATE/TIME: 01/09/2017 13:27 [facility] COMPARISON: CHEST SINGLE AP, January 09, 2017, 6:18. INDICATIONS : Post bronchoscopy MEDICAL HISTORY : None. SURGICAL HISTORY : None. ENCOUNTER: Initial ACUITY: 2 weeks PAIN SCORE: Non-responsive. LOCATION: Bilateral chest FINDINGS: 2 portable frontal views which show a tracheostomy tube in good position. Bilateral pleural effusions and bibasilar infiltrates are stable. The right is worse than the left. Heart is normal in size. No pneumothorax. CONCLUSION: Unchanged bilateral pleural effusions and bilateral pulmonary infiltrates. Derek Ashraf Jr., MD on January 09, 2017 at 15:01 Board Certified Radiologist. This report was verified electronically.
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
[2017-01-09 17:08] LABS: BRONCHOALVEOLAR LAVAGE RBC 55 /MM3; BRONCHOALVEOLAR LAVAGE WBC 445 /MM3; BRONCHOAVEOLAR LYMPHOCYTES 2 %; BRONCHOAVEOLAR NEUTROPHILS 98 %
[2017-01-09] MEDS: LABETALOL HCL 100 MG/20 ML VIAL IV PRN (23:10)
[2017-01-10] VITALS (20 sets, daily range): BP systolic 80–166; BP diastolic 52–82; PULSE 60–94; RESP 16–37; TEMP 99.1–102.2; O2SAT 94–100
[2017-01-10] MEDS: LABETALOL HCL 100 MG/20 ML VIAL IV PRN (00:17)
[2017-01-10] MEDS ORDERED: DEXMEDETOMIDINE INJ 50 ML IV SCH (01:15)
[2017-01-10] MEDS ORDERED: LORazepam 2 MG/ML VIAL IV PUSH ONE (01:30)
[2017-01-10] MEDS ORDERED: POTASSIUM CHLOR 20 MEQ PREMIX 100 ML IV SCH (01:30)
[2017-01-10] MEDS ORDERED: FUROSEMIDE 40 MG/4 ML VIAL IV PUSH ONE (01:30)
[2017-01-10] MEDS: DEXMEDETOMIDINE 200 MCG in NS 50 ML/ ADMIX IV SCH ×3 (01:42→03:10)
[2017-01-10 01:45] LABS: BLOOD GAS CARBOXYHEMOGLOBIN 1.2 % (0-4); BLOOD GAS HCO3 28 mmol/L (22-26); BLOOD GAS METHEMOGLOBIN 0.6 % (0-2); BLOOD GAS O2 HGB SATURATION 96 % (90-100); BLOOD GAS OXYGEN CONTENT 16.9 Vol % (12.0-20.0); BLOOD GAS PCO2 41 mmHg (38-42); BLOOD GAS PO2 100 mmHg (61-120); BLOOD GAS TOTAL HGB 12.4 G/DL (12.0-16.0); CRITICAL VALUE NO; TEMP CORR TO 98.6
[2017-01-10 01:46] LABS: DRAW SITE RT RADIAL; FIO2 45 %; NUMBER OF ARTERIAL PUNCTURES 1; STAT YES; ULNAR PULSE Y; VENT SETTINGS CPAP 10/PEEP8
[2017-01-10] MEDS: PROPRANOLOL HCL 20 MG TAB PEG SCH ×2 (02:00→08:00)
[2017-01-10] MEDS: FREE WATER G-TUBE SCH ×6 (02:09→23:18)
[2017-01-10] MEDS ORDERED: POTASSIUM CHLORIDE 20 MEQ PWD PACKET PEG SCH (02:15)
[2017-01-10] MEDS: RESP: ALBUTEROL 2.5 MG/IPRATROPIUM 0.5 MG NEB (SCH) NEB ×4 (03:32→20:57)
[2017-01-10] MEDS: CHLORHEXIDINE GLUCONATE 2 % 1 PACK (2 CLOTHS) TOP SCH (03:37)
[2017-01-10 04:05] LABS: AUTOMATED NEUTROPHIL # 10.5 TH/MM3 (1.8-7.7); BASOPHIL # 0.2 TH/MM3 (0-0.2); BASOPHIL % 1.3 % (0.0-2.0); EOSINOPHIL # 0.1 TH/MM3 (0-0.4); EOSINOPHIL % 0.4 % (0.0-4.0); HEMATOCRIT 35.5 % (39.0-51.0); HEMO FLAGS DIFF FINAL; LYMPH % 11.4 % (9.0-44.0); LYMPHOCYTE # 1.5 TH/MM3 (1.0-4.8); MEAN CELL VOLUME 95.3 FL (80.0-100.0); MEAN CORPUSCULAR HEMOGLOBIN 31.6 PG (27.0-34.0); MEAN CORPUSCULAR HGB CONC 33.2 % (32.0-36.0); MONO % 7.5 % (0.0-8.0); NEUT % 79.4 % (16.0-70.0); PLATELET COUNT 444 TH/MM3 (150-450); RED BLOOD COUNT 3.73 MIL/MM3 (4.50-5.90); RED CELL DISTRIBUTION WIDTH 14.9 % (11.6-17.2); WHITE BLOOD COUNT 13.2 TH/MM3 (4.0-11.0)
[2017-01-10 04:26] LABS: BICARBONATE 27.7 MEQ/L (21.0-32.0); MAGNESIUM 2.2 MG/DL (1.5-2.5); POTASSIUM 6.2 MEQ/L (3.5-5.1)
--- NOTE | 2017-01-10 05:00 | RADRPT ---
EXAM DATE/TIME: 01/10/2017 04:22 [facility] COMPARISON: CHEST SINGLE AP, January 09, 2017, 13:27. INDICATIONS : Shortness of breath. MEDICAL HISTORY : None. SURGICAL HISTORY : None. ENCOUNTER: Subsequent ACUITY: 2 weeks PAIN SCORE: Non-responsive. LOCATION: Bilateral chest FINDINGS: Portable AP view of the chest demonstrates a normal-sized cardiac silhouette. Tracheostomy remains pr esent. There is a stable moderate size right pleural-parenchymal opacity and small left basilar pleur al-parenchymal opacity. No pneumothorax is visualized. Right rib fractures remain visualized. CONCLUSION: 1. Stable chest x-ray with moderate size right pleural effusion with associated volume loss and/or co nsolidation. 2. Stable small left pleural effusion with associated volume loss and/or airspace consolidation. Brian Hammer MD on January 10, 2017 at 4:57 Board Certified Radiologist. This report was verified electronically.
[2017-01-10] MEDS: POTASSIUM PHOSPHATE/SODIUM PHOSPHATE 250 MG TAB PO SCH (05:16)
[2017-01-10] MEDS ORDERED: SODIUM CHLOR 0.9% 250 ML INJ 250 ML ONE (05:21)
[2017-01-10] MEDS ORDERED: NOREPINEPHRINE 4 MG/4 ML AMP ONE ×2 (05:21→09:31)
--- NOTE | 2017-01-10 06:06 | PD.PROCEDR ---
Central Line Procedure REASON FOR PROCEDURE Central venous access PROCEDURE PERFORMED Central line placement: Left IJ CVL CONSENT Informed consent for procedure was not obtained and considered emergent.. The risks and benefits of the procedure were discussed to include but limited to bleeding, clot formation, infection, and even . ANESTHESIA Local injection of 1% Lidocaine DESCRIPTION OF THE PROCEDURE The patient was placed in supine, mild Trendelenburg position. The area was exposed and cleansed with ChloraPrep, times two. Large sterile drape was used to cover the patient, with the site exposed, under sterile conditions including cap, face mask, sterile gown, and sterile gloves. On single attempt, the introducer needle was inserted with negative pressure in syringe and venous flash was obtained. The guide wire was then advanced without any restriction and the needle was removed. The dilator was used without any complications. Using Seldinger technique the triple-lumen catheter was advanced over the guide wire to a depth of 20 centimeters. The guide wire was removed. All ports were aspirated with dark venous blood return and flushed easily with sterile saline. All ports were capped. Antibiotic disc was placed around central line at puncture site. The central line was secured to the skin with two interrupted 2.0 silk sutures. The area was bandaged with sterile see-through central line bandage. RADIOLOGICAL DATA Ultrasound guidance was used to locate left internal jugular vein. Doppler/ color flow was used to confirm venous flow. COMPLICATIONS: No apparent complications ESTIMATED BLOOD LOSS: Less than 1 cc. Alex Ferrari MD Jan 10, 2017 06:06
[2017-01-10] MEDS ORDERED: SODIUM CHLORIDE 0.9% FLUSH 10 ML FLUSH IVF PRN (06:15)
--- NOTE | 2017-01-10 06:35 | RADRPT ---
EXAM DATE/TIME: 01/10/2017 06:11 [facility] COMPARISON: CHEST SINGLE AP, January 10, 2017, 4:22. INDICATIONS : Central line placement. MEDICAL HISTORY : None. SURGICAL HISTORY : None. ENCOUNTER: Subsequent ACUITY: 2 weeks PAIN SCORE: Non-responsive. LOCATION: Bilateral chest FINDINGS: Portable AP view of the chest demonstrates a normal-sized cardiac silhouette. Tracheostomy remains pr esent. A left IJ central line has been placed and distal tip is in the region of the SVC. There has b een interval increase in size of the right pleural-based opacity and there is some parenchymal opacit y present as well. There is a stable small left basilar opacity. No pneumothorax is visualized. CONCLUSION: 1. Left IJ central line distal tip in the SVC. No pneumothorax is visualized. 2. Interval increase size of the right pleural effusion. 3. Stable left basilar opacity likely representing pleural fluid with associated volume loss and/or c onsolidation. Brian Hammer MD on January 10, 2017 at 6:32 Board Certified Radiologist. This report was verified electronically.
[2017-01-10 06:39] LABS: APTT (PATIENT) 25.3 SEC (24.3-30.1); INTERNATIONAL NORMALIZED RATIO 1.1 RATIO; PROTHROMBIN TIME - PATIENT 12.7 SEC (9.8-11.6)
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
--- NOTE | 2017-01-10 06:56 | RADRPT ---
EXAM DATE/TIME: 01/10/2017 06:22 [facility] COMPARISON: CHEST SINGLE AP, January 10, 2017, 6:11. CT THORAX W CONTRAST, December 25, 2016, 14:36. INDICATIONS : Follow up respiratory distress. RADIATION DOSE: 6.37 CTDIvol (mGy) MEDICAL HISTORY : Non-responsive. SURGICAL HISTORY : Non-responsive. ENCOUNTER: Subsequent ACUITY: 2 days PAIN SCALE: Non-responsive LOCATION: chest TECHNIQUE: Volumetric scanning of the chest was performed. Using automated exposure control and adjustment of t he mA and/or kV according to patient size, radiation dose was kept as low as reasonably achievable to obtain optimal diagnostic quality images. FINDINGS: LUNGS: There is respiratory motion artifact. Compressive atelectasis is present within both lower lobes and in the right upper lobe. No pneumothorax is present PLEURAE: There is a moderate to large right and small left simple appearing pleural effusion. MEDIASTINUM: The heart and great vessels demonstrate no acute abnormality. There is coronary artery calcification and atherosclerotic disease of the aorta. Left IJ central line tip is in the SVC. Tracheostomy is pr esent. There is no mediastinal or hilar lymphadenopathy. AXILLAE: Within normal limits. No lymphadenopathy. MUSCULOSKELETAL: Bones are not well evaluated due to the motion artifact. There are right rib fractures present defini tely involving the seventh rib and there is a medial right clavicle fracture. There is a subacute to chronic left rib fracture. MISCELLANEOUS: There is likely a small volume of free fluid in the upper abdomen. CONCLUSION: 1. As demonstrated on the chest x-ray performed earlier today, the right pleural effusion has increas ed in size and is now moderate to large in size with associated compressive atelectasis of the right lung. 2. There is a small left pleural effusion with compressive atelectasis. 3. Right rib fractures and right clavicle fracture are visualized. Brian Hammer MD on January 10, 2017 at 6:50 Board Certified Radiologist. This report was verified electronically.
[2017-01-10] MEDS: INSULIN NovoLIN REGULAR SUPPLEMENTAL SCALE SQ SCH ×3 (07:00→17:40)
[2017-01-10] MEDS: AMANTADINE HCL SOLN 100 MG/10 ML UDC PEG SCH ×2 (07:03→12:20)
[2017-01-10] MEDS ORDERED: SODIUM CHLOR 0.9% 1000 ML INJ 1,000 ML IV ONE ×2 (07:15→10:30)
[2017-01-10 07:21] LABS: BICARBONATE 27.7 MEQ/L (21.0-32.0); POTASSIUM 4.4 MEQ/L (3.5-5.1)
[2017-01-10] MEDS ORDERED: MIDAZOLAM HCL 5 MG/ML VIAL (1 ML) ONE (07:43)
[2017-01-10] MEDS ORDERED: LIDOCAINE 1%/EPINEPHrine 1:100,000 SOLN 30 ML VIAL ONE (07:45)
[2017-01-10] MEDS: CHLORHEXIDINE 0.12% (ORAL KIT) 15 ML CUP MT SCH ×2 (08:00→20:06)
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
--- NOTE | 2017-01-10 08:29 | PD.PROCEDR ---
Procedure Note Procedure DATE: 01/10/2017 PROCEDURE: Right femoral arterial catheter placement INDICATION: Hemodynamic access DETAILS OF PROCEDURE The patient was placed in supine position. The skin was cleansed with Chloraprep. Additional barrier precautions included large sterile drape, sterile gloves, sterile gown, face mask, and hat. 1% lidocaine was used for local anesthesia. Under direct ultrasound guidance and on the initial attempt, the artery was accessed with an introducer needle. The guide wire was advanced. Using Seldinger technique 20 gauge arterial catheter was placed. The guide wire was removed. The catheter was connected to a transducer line and flushed with saline. The video monitor displayed normal arterial wave forms. The catheter was secured with 2-0 silk. A sterile dressing with antibiotic disc was applied. ESTIMATED BLOOD LOSS: minimal COMPLICATIONS: None Alex Ferrari MD Jan 10, 2017 08:29
--- NOTE | 2017-01-10 08:32 | PD.PROCEDR ---
Procedure Note Procedure Date of procedure: 01/10/2017 Procedure: #10 [place] pigtail chest tube placement Indication: Large right pleural effusion Details of procedure: Informed consent was obtained from the . The patient was laid supine. The lateral chest wall was cleaned with ChloraPrep twice. Regional sterile drapes were applied. 1% lidocaine was used for local anesthesia and injected into the subcutaneous and deep muscle tissues. An introducer needle was placed at the mid axilla line to the nipple. Return of serosanguineous fluid. Guidewire was placed through introducer needle. Neck was placed in skin and a #10 [place] pigtail catheter was placed over guidewire into the right pleural space without complication. . Placed to -40 cm suction when connected to Pleur-evac drainage system. Stay put was placed.. 0-0 silk was used to close the wound and to secure the chest tube. A sterile Vaseline gauze dressing was applied. The chest tube was connected to a Pleur-evac drainage system. There was no air leak. There was 1100 cc output from the chest tube. Estimated blood loss: Minimal Complications: None. Stat chest x-ray pending at time of dictation. Alex Ferrari MD Jan 10, 2017 08:32
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
[2017-01-10] MEDS: BACITRACIN TOP OINT 15 GM TUBE TOP SCH ×2 (09:00→20:07)
[2017-01-10] MEDS: SODIUM CHLORIDE 0.9% FLUSH 5 ML FLUSH IVF SCH (09:00)
[2017-01-10] MEDS: AMIODARONE 200 MG TAB PEG SCH (09:00)
[2017-01-10] MEDS: BISACODYL 10 MG SUPP RECTAL SCH (09:00)
[2017-01-10] MEDS: BENEPROTEIN POWDER 1 PACK G-TUBE SCH ×3 (09:00→17:10)
[2017-01-10] MEDS: SODIUM CHLORIDE 0.9% FLUSH 10 ML FLUSH IVF SCH (09:00)
[2017-01-10] MEDS: FOLIC ACID 1 MG TAB PEG SCH (09:00)
--- NOTE | 2017-01-10 09:01 | RADRPT ---
EXAM DATE/TIME: 01/10/2017 08:38 [facility] COMPARISON: CHEST SINGLE AP, January 10, 2017, 6:11. INDICATIONS : Post right sided pigtail placement. MEDICAL HISTORY : Hypertension. Renal calculi. Syncope. Measles SURGICAL HISTORY : None. ENCOUNTER: Subsequent ACUITY: 2 weeks PAIN SCORE: Non-responsive. LOCATION: Bilateral chest FINDINGS: Pigtail is in good position on the right with substantial reduction in the right pleural effusion. T racheostomy tube and central venous catheter are in good position. Rib fractures are seen on the left. CONCLUSION: Interval improvement following placement of right-sided Pigtail catheter. Leo Jaquez MD FACR on January 10, 2017 at 8:52 Board Certified Radiologist. This report was verified electronically.
[2017-01-10] MEDS: MULTIVITAMIN TAB PEG SCH (09:37)
[2017-01-10] MEDS: HYDROCORTISONE SOD SUCCINATE 100 MG VIAL IV PUSH SCH ×2 (09:37→16:12)
[2017-01-10] MEDS: THIAMINE HCL 100 MG TAB PEG SCH (09:37)
[2017-01-10] MEDS: FAMOTIDINE 20 MG TAB PEG SCH ×2 (09:37→20:07)
[2017-01-10] MEDS: VALPROIC ACID SYRUP 250 MG/5 ML UDC PO SCH ×2 (09:38→20:07)
[2017-01-10] MEDS: MAGNESIUM HYDROXIDE SUSP 30 ML CUP PO SCH (09:38)
[2017-01-10] MEDS: VASOPRESSIN INJ 40 UNITS in DEXTROSE 5% IN WATER 100ML INJ 98 ML IV SCH ×4 (09:44→23:18)
[2017-01-10] MEDS: LACTULOSE SYRUP 20 GM/30 ML CUP PEG SCH (09:44)
[2017-01-10] MEDS: DOCUSATE SODIUM 50 MG/SENNA 8.6 MG TAB PO SCH ×2 (09:44→20:07)
[2017-01-10] MEDS ORDERED: VASOPRESSIN INJ 40 UNITS in DEXTROSE 5% IN WATER 100ML INJ 98 ML IV SCH ×2 (09:54)
[2017-01-10] MEDS ORDERED: TERBUTALINE INJ 1 MG/ML AMP SQ PRN (10:00)
[2017-01-10 10:54] LABS: BACTERIA, URINE RARE /hpf; BLOOD, URINE LARGE (NEG); CALCIUM OXALATE CRYSTALS,URINE RARE /hpf; GLUCOSE,URINE TRACE mg/dL (NEG); GRANULAR CAST, URINE 1 /lpf; HYALINE CAST, URINE 2 /lpf (RARE); KETONE, URINE NEG (NEG); MUCUS URINE FEW /lpf (OCC); NITRITE,URINE NEG (NEG); PH, URINE 5.5 (5.0-8.5); SQUAMOUS EPITHELIAL CELL URINE <1 /hpf (0-5); URINE COLOR YELLOW (YELLW/STRAW)
[2017-01-10 10:55] LABS: COMMENT (UR) CATH-CULTURE IND; CULTURE IF INDICATED CATH CULTURE IND
[2017-01-10] MEDS ORDERED: IOHEXOL 350 MG/ML 10 ML VIAL (for RAD DIAG) IV ONE (11:19)
--- NOTE | 2017-01-10 11:25 | ECHLIM ---
Study Study Date:01/10/2017 STUDY CONCLUSIONS SUMMARY - Left ventricle: The cavity size was normal. Wall thickness was normal. Systolic function was normal. The estimated ejection fraction was in the range of 50% to 55%. Wall motion was normal; there were no regional wall motion abnormalities. The study is not technically sufficient to allow evaluation of LV diastolic function. - Pulmonary arteries: PA peak pressure: 36mm Hg (S). Recommendations: Very poor acoustic window. If more information needed, please oirder a DESTINI. Case discussed with Dr Ferrari If LV function is below 40, please consider prescribing an ACEI or ARB or document rationale for non-use. PROCEDURE DATA STUDY STATUS: Elective. Procedure: Transthoracic echocardiography. Image quality was poor. Scanning was performed from the parasternal, apical, and subcostal acoustic windows. Study completion: The patient tolerated the procedure well. Transthoracic echocardiography. M-mode, complete 2D, complete spectral Doppler, and color Doppler. Patient status: Inpatient. CARDIAC ANATOMY LEFT VENTRICLE: The cavity size was normal. Wall thickness was normal. Systolic function was normal. The estimated ejection fraction was in the range of 50% to 55%. Wall motion was normal; there were no regional wall motion abnormalities. The study is not technically sufficient to allow evaluation of LV diastolic function. AORTIC VALVE: Trileaflet; normal thickness leaflets. Due to poor acoustic window, aortic valve cannot be properly assessed AORTA: Aortic root: The aortic root was normal in size. MITRAL VALVE: Structurally normal valve. Doppler: Transvalvular velocity was within the normal range. There was no evidence for stenosis. No regurgitation. LEFT ATRIUM: The atrium was normal in size. RIGHT VENTRICLE: adequate contractility The cavity size was normal. Wall thickness was normal. PULMONIC VALVE: Doppler: Transvalvular velocity was within the normal range. There was no evidence for stenosis. No regurgitation. TRICUSPID VALVE: Structurally normal valve. Doppler: Transvalvular velocity was within the normal range. No regurgitation. PULMONARY ARTERY: The main pulmonary artery was normal-sized. Systolic pressure was within the normal range. RIGHT ATRIUM: The atrium was normal in size. PERICARDIUM: There was no pericardial effusion. SYSTEMIC VEINS: Inferior vena cava: The vessel was normal in size. DOPPLER MEASUREMENTS ADULT NORMAL Main pulmonary artery Pressure, S *36 mm Hg =30 Tricuspid valve Regurgitant peak velocity 255 cm/s Peak RV-RA gradient, S 26 mm Hg Maximal regurgitant velocity 255 cm/s Systemic veins Estimated CVP 10 mm Hg Right ventricle RV pressure, S *36 mm Hg <30 LEGEND: Mean values are shown as u=mean value. Asterisk (*) young values outside specified normal range. Prepared and signed by Aron Hunter [id number]
[2017-01-10 11:32] LABS: INDIRECT BILIRUBIN 0.3 MG/DL (0.0-0.8); TOTAL BILIRUBIN ADULT 0.5 MG/DL (0.2-1.0)
--- NOTE | 2017-01-10 11:41 | RADRPT ---
EXAM DATE/TIME: 01/10/2017 11:07 [facility] COMPARISON: No previous studies available for comparison. INDICATIONS : Evaluate for pulmonary emboli. IV CONTRAST: 70 cc Omnipaque 350 (iohexol) IV RADIATION DOSE: 20.63 CTDIvol (mGy) MEDICAL HISTORY : Cardiovascular disease. Hypertension. SURGICAL HISTORY : None. ENCOUNTER: Initial ACUITY: 1 day PAIN SCALE: 5/10 LOCATION: Bilateral chest TECHNIQUE: Volumetric scanning of the chest was performed using a pulmonary embolism protocol MIP images were reconstructed. Using automated exposure control and adjustment of the mA and/or kV acco rding to patient size, radiation dose was kept as low as reasonably achievable to obtain optimal diag nostic quality images. FINDINGS: Moderate motion artifact is present. Mild interstitial edema is present. There are small bilateral pleural effusions. There is monospecific axillary adenopathy. There is no evidence for central pulmonary emboli. There is no pericardial effusion. Portion of liver and spleen identified are free of focal defects. Trace ascites is evident. CONCLUSION: 1. There is no evidence for central pulmonary emboli. 2. Moderate interstitial edema. 3. Small Pigtail catheter is in good position on the right. Leo Jaquez MD FACR on January 10, 2017 at 11:32 Board Certified Radiologist. This report was verified electronically.
[2017-01-10] MEDS: ENOXAPARIN SODIUM 40 MG/0.4 ML SYRINGE SQ SCH (12:21)
[2017-01-10] MEDS: NOREPINEPHRINE INJ 4 MG in SODIUM CHLOR 0.9% 250 ML INJ 246 ML IV SCH ×3 (12:22→23:18)
[2017-01-10] MEDS ORDERED: LACTATED RINGER'S 1000 ML INJ 1,000 ML IV ONE (12:30)
[2017-01-10] MEDS: ACETAMINOPHEN 325 MG TAB PO PRN (12:39)
[2017-01-10] MEDS: fentaNYL DRIP 250 ML IV SCH ×2 (12:40→22:13)
[2017-01-10] MEDS ORDERED: Vancomycin Consult Pharmacy 1 EA OTHER SCH (13:15)
[2017-01-10 13:25] LABS: BLOOD GAS VENOUS BASE EXCESS 0.6 mmol/L (-2-2); BLOOD GAS VENOUS HCO3 24 mmol/L (22-26); BLOOD GAS VENOUS O2 CONTENT 9.1 Vol % (9.0-17.0); BLOOD GAS VENOUS O2 HGB SAT 59 % (70-76); BLOOD GAS VENOUS PCO2 35 mmHg (44-48); BLOOD GAS VENOUS PO2 32 mmHg (35-40); BLOOD GAS VENOUS pH 7.45 (7.360-7.400); CRITICAL VALUE NO; OXYGEN DEVICE VENTILATOR; TEMP CORR TO 98.6
[2017-01-10 13:26] LABS: DRAW SITE LINE; FIO2 45 %; STAT NO; VENT SETTINGS 700/16/+5
[2017-01-10 13:27] LABS: BLOOD GAS BASE EXCESS 1.5 mmol/L (-2-2); BLOOD GAS CARBOXYHEMOGLOBIN 1.4 % (0-4); BLOOD GAS HCO3 24 mmol/L (22-26); BLOOD GAS METHEMOGLOBIN 0.7 % (0-2); BLOOD GAS O2 HGB SATURATION 97 % (90-100); BLOOD GAS OXYGEN CONTENT 13.4 Vol % (12.0-20.0); BLOOD GAS PCO2 31 mmHg (38-42); BLOOD GAS PO2 113 mmHg (61-120); BLOOD GAS TOTAL HGB 9.7 G/DL (12.0-16.0); TEMP CORR TO 98.6
[2017-01-10 13:28] LABS: CRITICAL VALUE YES; DRAW SITE ART LINE; FIO2 45 %; OXYGEN DEVICE VENTILATOR; STAT NO; VENT SETTINGS 700/16/+5
[2017-01-10] MEDS: PIPERACIL-TAZO 4.5 GM PREMIX 100 ML IV SCH ×2 (14:02→20:07)
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
[2017-01-10 15:01] LABS: HEMATOCRIT 30.7 % (39.0-51.0); MEAN CELL VOLUME 93.8 FL (80.0-100.0); MEAN CORPUSCULAR HEMOGLOBIN 32.2 PG (27.0-34.0); MEAN CORPUSCULAR HGB CONC 34.4 % (32.0-36.0); PLATELET COUNT 313 TH/MM3 (150-450); RED BLOOD COUNT 3.28 MIL/MM3 (4.50-5.90); RED CELL DISTRIBUTION WIDTH 14.8 % (11.6-17.2); REVIEW FLAG FINAL; WHITE BLOOD COUNT 7.6 TH/MM3 (4.0-11.0)
[2017-01-10 15:26] LABS: BICARBONATE 28.6 MEQ/L (21.0-32.0); POTASSIUM 4.8 MEQ/L (3.5-5.1)
[2017-01-10 16:02] LABS: CALCIUM-PROTEIN CORRECTED 8.6 MG/DL (8.5-10.1); CKMB 3.3 NG/ML (0.5-3.6)
[2017-01-10] MEDS: VANCOMYCIN 1,500 MG/NS 500 ML IV SCH ×2 (16:12)
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
[2017-01-11] VITALS (18 sets, daily range): BP systolic 90–110; BP diastolic 56–63; PULSE 80–113; RESP 6–18; TEMP 100–100.9; O2SAT 93–100
[2017-01-11] MEDS: INSULIN NovoLIN REGULAR SUPPLEMENTAL SCALE SQ SCH ×4 (01:22→18:00)
[2017-01-11] MEDS: HYDROCORTISONE SOD SUCCINATE 100 MG VIAL IV PUSH SCH ×4 (01:22→23:33)
[2017-01-11] MEDS: RESP: ALBUTEROL 2.5 MG/IPRATROPIUM 0.5 MG NEB (SCH) NEB ×4 (03:28→20:08)
[2017-01-11] MEDS: FREE WATER G-TUBE SCH ×6 (04:00→23:37)
[2017-01-11] MEDS: CHLORHEXIDINE GLUCONATE 2 % 1 PACK (2 CLOTHS) TOP SCH (04:00)
[2017-01-11 04:04] LABS: AUTOMATED NEUTROPHIL # 7.8 TH/MM3 (1.8-7.7); BASOPHIL # 0.1 TH/MM3 (0-0.2); BASOPHIL % 0.7 % (0.0-2.0); EOSINOPHIL % 0.1 % (0.0-4.0); HEMATOCRIT 35.1 % (39.0-51.0); LYMPH % 10.3 % (9.0-44.0); MEAN CELL VOLUME 96.4 FL (80.0-100.0); MEAN CORPUSCULAR HEMOGLOBIN 31.6 PG (27.0-34.0); MEAN CORPUSCULAR HGB CONC 32.8 % (32.0-36.0); MONO % 7.8 % (0.0-8.0); NEUT % 81.1 % (16.0-70.0); PLATELET COUNT 343 TH/MM3 (150-450); RED BLOOD COUNT 3.64 MIL/MM3 (4.50-5.90); RED CELL DISTRIBUTION WIDTH 15.4 % (11.6-17.2); WHITE BLOOD COUNT 9.6 TH/MM3 (4.0-11.0)
[2017-01-11 04:05] LABS: HEMO FLAGS AUTO DIFF
[2017-01-11 04:38] LABS: ALKALINE PHOSPHATASE 129 U/L (45-117); ALT (GPT) 30 U/L (12-78); ANION GAP 8 MEQ/L (5-15); AST (GOT) 19 U/L (15-37); BICARBONATE 26.6 MEQ/L (21.0-32.0); BLOOD UREA NITROGEN 29 MG/DL (7-18); CHLORIDE 108 MEQ/L (98-107); GLOMERULAR FILTRATION RATE 41 ML/MIN (>89); MAGNESIUM 3.8 MG/DL (1.5-2.5); POTASSIUM 5.1 MEQ/L (3.5-5.1); SODIUM (NA) 143 MEQ/L (136-145); TOTAL BILIRUBIN ADULT 0.5 MG/DL (0.2-1.0)
[2017-01-11 04:40] LABS: BANDS 43 % (0-6); BASOPHILS 1 % (0-2); METAMYELOCYTES 1 % (0-1); NEUTROPHIL # MANUAL DIFF 7.3 TH/MM3 (1.8-7.7); POLYS (SEG NEUTROPHILS) 32 % (16-70); WBC DIFF SAMPLE 100
[2017-01-11 04:41] LABS: PLATELET ESTIMATE SMEAR NORMAL (NORMAL); PLATELET MORPHOLOGY NORMAL (NORMAL); SCAN/DIFF FINAL DIFF MANUAL
[2017-01-11 04:45] LABS: TOXIC VACUOLATION PRESENT (NONE SEEN)
--- NOTE | 2017-01-11 05:25 | RADRPT ---
EXAM DATE/TIME: 01/11/2017 04:18 [facility] COMPARISON: CT PULMONARY ANGIOGRAM, January 10, 2017, 11:07. CHEST SINGLE AP, January 10, 2017, 8:38. INDICATIONS : Shortness of breath. MEDICAL HISTORY : Hypertension. Cardiovascular disease. Rib fracture, bilateral. SURGICAL HISTORY : Tracheostomy. Pigtail catheter, right. ENCOUNTER: Subsequent ACUITY: 2 weeks PAIN SCORE: Non-responsive. LOCATION: Bilateral chest FINDINGS: Portable AP view of the chest demonstrates a normal-sized cardiac silhouette. Tracheostomy and left I J central line remain present. Small left pleural effusion with compressive atelectasis is stable. Th ere is stable mild airspace opacity at the right base. No pneumothorax is visualized. CONCLUSION: Stable chest x-ray with small left pleural effusion with associated compressive atelectasis and atele ctasis versus consolidation at the right lung base. Brian Hammer MD on January 11, 2017 at 5:21 Board Certified Radiologist. This report was verified electronically.
[2017-01-11] MEDS: AMANTADINE HCL SOLN 100 MG/10 ML UDC PEG SCH ×2 (05:33→12:02)
[2017-01-11] MEDS: PIPERACIL-TAZO 4.5 GM PREMIX 100 ML IV SCH ×3 (05:33→23:33)
[2017-01-11 05:49] LABS: BLOOD GAS BASE EXCESS -0.3 mmol/L (-2-2); BLOOD GAS CARBOXYHEMOGLOBIN 1.4 % (0-4); BLOOD GAS HCO3 24 mmol/L (22-26); BLOOD GAS METHEMOGLOBIN 0.7 % (0-2); BLOOD GAS O2 HGB SATURATION 93 % (90-100); BLOOD GAS OXYGEN CONTENT 18.7 Vol % (12.0-20.0); BLOOD GAS PCO2 44 mmHg (38-42); BLOOD GAS PO2 78 mmHg (61-120); BLOOD GAS TOTAL HGB 14.3 G/DL (12.0-16.0); TEMP CORR TO 98.6
[2017-01-11 05:50] LABS: CRITICAL VALUE NO; DRAW SITE ART LINE; FIO2 40 %; OXYGEN DEVICE VENTILATOR; STAT NO; VENT SETTINGS CPAP10PS/5PEEP
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
[2017-01-11] MEDS ORDERED: MINERAL OIL LIQUID 30 ML CUP PO ONE (08:00)
[2017-01-11] MEDS: CHLORHEXIDINE 0.12% (ORAL KIT) 15 ML CUP MT SCH ×2 (08:00→20:00)
[2017-01-11] MEDS ORDERED: SODIUM CHLOR 0.9% 1000 ML INJ 1,000 ML IV SCH (08:00)
[2017-01-11] MEDS ORDERED: GLYCERIN ADULT 2 GM SUPP RECTAL ONE (08:00)
[2017-01-11] MEDS ORDERED: SODIUM CHLOR 0.9% 1000 ML INJ 1,000 ML IV ONE ×3 (08:00→17:15)
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
[2017-01-11] MEDS: SODIUM CHLORIDE 0.9% FLUSH 10 ML FLUSH IVF SCH (08:27)
[2017-01-11] MEDS: AMIODARONE 200 MG TAB PEG SCH (08:27)
[2017-01-11] MEDS: BENEPROTEIN POWDER 1 PACK G-TUBE SCH ×3 (08:27→17:44)
[2017-01-11] MEDS: SODIUM CHLORIDE 0.9% FLUSH 5 ML FLUSH IVF SCH (08:27)
[2017-01-11] MEDS: FOLIC ACID 1 MG TAB PEG SCH (08:28)
[2017-01-11] MEDS: MAGNESIUM HYDROXIDE SUSP 30 ML CUP PO SCH (08:28)
[2017-01-11] MEDS: BISACODYL 10 MG SUPP RECTAL SCH (08:28)
[2017-01-11] MEDS: DOCUSATE SODIUM 50 MG/SENNA 8.6 MG TAB PO SCH ×2 (08:28→21:00)
[2017-01-11] MEDS: VALPROIC ACID SYRUP 250 MG/5 ML UDC PO SCH ×2 (08:28→21:00)
[2017-01-11] MEDS: THIAMINE HCL 100 MG TAB PEG SCH (08:28)
[2017-01-11] MEDS: BACITRACIN TOP OINT 15 GM TUBE TOP SCH ×2 (08:28→21:00)
[2017-01-11] MEDS: MULTIVITAMIN TAB PEG SCH (08:28)
[2017-01-11] MEDS: FAMOTIDINE 20 MG TAB PEG SCH (08:28)
[2017-01-11] MEDS: VASOPRESSIN INJ 40 UNITS in DEXTROSE 5% IN WATER 100ML INJ 98 ML IV SCH ×2 (08:29)
[2017-01-11] MEDS: POLYETHYLENE GLYCOL 17 GM PKG PO SCH ×2 (08:29→21:00)
[2017-01-11] MEDS ORDERED: PROPOFOL 200 MG/20 ML AMP IV ONE (12:00)
[2017-01-11] MEDS ORDERED: PHENYLEPHRINE HCL 10 MG/ML VIAL IV ONE (12:00)
[2017-01-11] MEDS ORDERED: SODIUM CHLOR 0.9% 250 ML INJ 250 ML IV ONE (12:00)
[2017-01-11] MEDS: LACTULOSE SYRUP 20 GM/30 ML CUP PEG SCH ×3 (12:02→23:34)
[2017-01-11] MEDS: ENOXAPARIN SODIUM 40 MG/0.4 ML SYRINGE SQ SCH (12:02)
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
[2017-01-11] MEDS: VANCOMYCIN 1,500 MG/NS 500 ML IV SCH ×2 (15:03)
[2017-01-11 16:50] LABS: BICARBONATE 24.9 MEQ/L (21.0-32.0); POTASSIUM 5.4 MEQ/L (3.5-5.1)
[2017-01-11] MEDS ORDERED: SODIUM BICARBONATE 8.4% SOLN 50 MEQ/50 ML VIAL SLOW IVP ONE (17:15)
[2017-01-11] MEDS ORDERED: CALCIUM GLUCONATE 10% 1 GM/10 ML VIAL SLOW IVP ONE (17:15)
[2017-01-11] MEDS ORDERED: SODIUM POLYSTYRENE SULFONATE SUSP 15 GM/60 ML CUP PO ONE (17:15)
[2017-01-11] MEDS ORDERED: DEXTROSE 50% IN WATER 50 ML VIAL(D50) IV PUSH ONE (17:15)
[2017-01-11] MEDS ORDERED: INSULIN HUMAN REGULAR 1,000 UNITS/10 ML VIAL IV PUSH ONE (17:30)
--- NOTE | 2017-01-11 19:23 | RADRPT ---
EXAM DATE/TIME: 01/11/2017 18:30 [place] COMPARISON: ABDOMEN KUB ONLY, December 31, 2016, 12:57. INDICATIONS : Evaluate for ileus. Vomiting bile. MEDICAL HISTORY : Hypertension. SURGICAL HISTORY : None. ENCOUNTER: Initial ACUITY: 1 day PAIN SCORE: Non-responsive. LOCATION: Bilateral abdomen. FINDINGS: Supine view of the abdomen was performed. The abdominal bowel gas pattern demonstrates mild ileus pr edominately colonic. No obstruction or free air identified. Gastrostomy projected over left upper sarah beth drant. CONCLUSION: 1. Mild ileus. Gastrostomy left upper quadrant Ori Mathis MD on January 11, 2017 at 19:20 Board Certified Radiologist. This report was verified electronically.
--- NOTE | 2017-01-11 19:45 | RADRPT ---
EXAM DATE/TIME: 01/11/2017 19:01 [facility] COMPARISON: No previous studies available for comparison. INDICATIONS : Abdominal pain. ORAL CONTRAST: No oral contrast ingested. RADIATION DOSE: 13.28 CTDIvol (mGy) MEDICAL HISTORY : Hypertension. Cardiovascular disease SURGICAL HISTORY : None. ENCOUNTER: Initial ACUITY: 1 day PAIN SCALE: Non-responsive LOCATION: Bilateral abdomen TECHNIQUE: Volumetric scanning of the abdomen and pelvis was performed. Using automated exposure control and ad justment of the mA and/or kV according to patient size, radiation dose was kept as low as reasonably achievable to obtain optimal diagnostic quality images. FINDINGS: Small bilateral pleural effusions with basal atelectasis. Trace pericardial fluid. Moderate coronary calcifications. There is liver cirrhosis with moderate ascites and moderate anasarca. There is some dependent increas ed density within the ascites especially posterior to the liver. No acute findings in the spleen, adr enals and pancreas. Right kidney unremarkable except for small cysts. Exophytic cyst left kidney. No hydronephrosis. Joseph catheter present in the bladder. Right femoral arterial line present. Gastrostomy present in le ft upper quadrant. CONCLUSION: 1. Findings are most characteristic of liver cirrhosis with moderate ascites and anasarca. 2. Small bilateral pleural effusions with basilar atelectasis. 3. Multiple subacute bilateral lower rib fractures. 4. Joseph catheter the bladder. Gastrostomy left upper quadrant. 5. There is some dependent increased density within the ascites especially on posterior aspect of the liver. This is of unclear etiology. Conceivably some contrast may have leaked from a previous gastro stomy injection. Ori Mathis MD on January 11, 2017 at 19:36 Board Certified Radiologist. This report was verified electronically.
[2017-01-11] MEDS ORDERED: GLYCERIN ADULT 2 GM SUPP RECTAL PRN (21:00)
[2017-01-11] MEDS ORDERED: FAMOTIDINE 20 MG TAB PEG SCH (21:00)
[2017-01-11] MEDS: LACTATED RINGER'S 1000 ML INJ 1,000 ML IV SCH (22:44)
[2017-01-11] MEDS ORDERED: TERBUTALINE INJ 1 MG/ML AMP SQ PRN (22:45)
[2017-01-11] MEDS ORDERED: NOREPINEPHRINE-DEXTROSE DRIP 250 ML IV SCH (22:45)
[2017-01-11] MEDS ORDERED: NALOXONE HCL 0.4 MG/ML AMP IV PRN (22:45)
[2017-01-11] MEDS ORDERED: Post-op Orders (for Pharmacy) MISC XX ONE (22:45)
[2017-01-11] MEDS ORDERED: SODIUM CHLORIDE 0.9% FLUSH 10 ML FLUSH IV FLUSH PRN (22:45)
[2017-01-11] MEDS ORDERED: FLUCONAZOLE 200 MG PREMIX BAG 100 ML IV SCH (23:00)
[2017-01-11] MEDS: fentaNYL DRIP 250 ML IV SCH (23:33)
[2017-01-11] MEDS ORDERED: MIDAZOLAM HCL 2 MG/2 ML VIAL ONE (23:36)
[2017-01-12] VITALS (19 sets, daily range): BP systolic 98–122; BP diastolic 54–69; PULSE 84–122; RESP 6–18; TEMP 96.6–99.1; O2SAT 93–100
[2017-01-12 01:12] LABS: BLOOD GAS BASE EXCESS -4.9 mmol/L (-2-2); BLOOD GAS CARBOXYHEMOGLOBIN 1.6 % (0-4); BLOOD GAS HCO3 21 mmol/L (22-26); BLOOD GAS METHEMOGLOBIN 0.8 % (0-2); BLOOD GAS O2 HGB SATURATION 94 % (90-100); BLOOD GAS OXYGEN CONTENT 13.1 Vol % (12.0-20.0); BLOOD GAS PCO2 48 mmHg (38-42); BLOOD GAS PO2 94 mmHg (61-120); BLOOD GAS TOTAL HGB 9.8 G/DL (12.0-16.0); CRITICAL VALUE YES; DRAW SITE ART LINE; FIO2 50 %; OXYGEN DEVICE VENTILATOR; TEMP CORR TO 98.6; VENT SETTINGS PRVC/AC
[2017-01-12 01:13] LABS: STAT NO
[2017-01-12] MEDS ORDERED: SODIUM CHLOR 0.9% 1000 ML INJ 2,000 ML IV ONE (01:45)
[2017-01-12] MEDS: LACTATED RINGER'S 1000 ML INJ 1,000 ML IV SCH ×6 (03:44→23:17)
[2017-01-12 03:59] LABS: AUTOMATED NEUTROPHIL # 9.7 TH/MM3 (1.8-7.7); BASOPHIL % 0.3 % (0.0-2.0); HEMATOCRIT 30.9 % (39.0-51.0); LYMPH % 5.1 % (9.0-44.0); LYMPHOCYTE # 0.5 TH/MM3 (1.0-4.8); MONO % 3.9 % (0.0-8.0); NEUT % 90.7 % (16.0-70.0); PLATELET COUNT 392 TH/MM3 (150-450); RED BLOOD COUNT 3.18 MIL/MM3 (4.50-5.90); RED CELL DISTRIBUTION WIDTH 16.1 % (11.6-17.2); WHITE BLOOD COUNT 10.7 TH/MM3 (4.0-11.0)
[2017-01-12 04:00] LABS: HEMO FLAGS AUTO DIFF
[2017-01-12] MEDS: FREE WATER G-TUBE SCH ×6 (04:00→23:17)
[2017-01-12] MEDS: CHLORHEXIDINE GLUCONATE 2 % 1 PACK (2 CLOTHS) TOP SCH (04:00)
[2017-01-12] MEDS ORDERED: SODIUM CHLOR 0.9% 1000 ML INJ 2,000 ML IV SCH (04:30)
[2017-01-12 04:35] LABS: BICARBONATE 23.9 MEQ/L (21.0-32.0); CALCIUM-PROTEIN CORRECTED 8.3 MG/DL (8.5-10.1); MAGNESIUM 4.3 MG/DL (1.5-2.5); TOTAL BILIRUBIN ADULT 0.5 MG/DL (0.2-1.0)
[2017-01-12] MEDS: PIPERACIL-TAZO 4.5 GM PREMIX 100 ML IV SCH (05:01)
[2017-01-12] MEDS: LACTULOSE SYRUP 20 GM/30 ML CUP PEG SCH ×4 (05:01→23:17)
[2017-01-12] MEDS: RESP: ALBUTEROL 2.5 MG/IPRATROPIUM 0.5 MG NEB (SCH) NEB ×3 (05:06→19:49)
[2017-01-12 05:29] LABS: BLOOD GAS BASE EXCESS -5.9 mmol/L (-2-2); BLOOD GAS CARBOXYHEMOGLOBIN 1.5 % (0-4); BLOOD GAS HCO3 19 mmol/L (22-26); BLOOD GAS METHEMOGLOBIN 0.7 % (0-2); BLOOD GAS O2 HGB SATURATION 96 % (90-100); BLOOD GAS OXYGEN CONTENT 13.2 Vol % (12.0-20.0); BLOOD GAS PCO2 39 mmHg (38-42); BLOOD GAS PO2 100 mmHg (61-120); BLOOD GAS TOTAL HGB 9.7 G/DL (12.0-16.0); TEMP CORR TO 98.6
[2017-01-12 05:30] LABS: CRITICAL VALUE NO; OXYGEN DEVICE VENTILATOR
[2017-01-12 05:31] LABS: DRAW SITE ART LINE; FIO2 50 %; STAT NO; VENT SETTINGS PRVC/AC
[2017-01-12 05:50] LABS: LACTIC ACID GHOST NOT REPORTABLE
[2017-01-12] MEDS: INSULIN NovoLIN REGULAR SUPPLEMENTAL SCALE SQ SCH ×4 (06:00→17:07)
[2017-01-12] MEDS ORDERED: NOREPINEPHRINE 4 MG/4 ML AMP ONE (06:10)
--- NOTE | 2017-01-12 06:18 | RADRPT ---
EXAM DATE/TIME: 01/12/2017 05:14 [facility] COMPARISON: CHEST SINGLE AP, January 11, 2017, 4:18. INDICATIONS : Shortness of breath, possible pulmonary disease. MEDICAL HISTORY : Hypertension. SURGICAL HISTORY : None. ENCOUNTER: Subsequent ACUITY: 2 weeks PAIN SCORE: Non-responsive. LOCATION: Bilateral chest FINDINGS: A single portable frontal view of the chest shows a tracheostomy tube, nasogastric tube, and left-angle ed central line. Bibasilar consolidation is unchanged. Small left effusion. Heart is mildly enlarged. CONCLUSION: Unchanged bibasilar consolidation. Derek Ashraf Jr., MD on January 12, 2017 at 6:17 Board Certified Radiologist. This report was verified electronically.
[2017-01-12] MEDS: AMANTADINE HCL SOLN 100 MG/10 ML UDC PEG SCH ×2 (06:21→11:41)
[2017-01-12 06:59] LABS: BANDS 65 % (0-6); METAMYELOCYTES 4 % (0-1); MYELOCYTES 1 % (0-0); NEUTROPHIL # MANUAL DIFF 9.4 TH/MM3 (1.8-7.7); POLYS (SEG NEUTROPHILS) 18 % (16-70); WBC DIFF SAMPLE 100
[2017-01-12 07:00] LABS: PLATELET ESTIMATE SMEAR NORMAL (NORMAL); PLATELET MORPHOLOGY NORMAL (NORMAL); SCAN/DIFF FINAL DIFF MANUAL
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
[2017-01-12] MEDS: MICAFUNGIN INJ 100 MG in SODIUM CHLORIDE 0.9% INJ 100 ML IV SCH (08:00)
[2017-01-12] MEDS: CHLORHEXIDINE 0.12% (ORAL KIT) 15 ML CUP MT SCH ×2 (08:00→19:55)
[2017-01-12] MEDS: VASOPRESSIN INJ 40 UNITS in DEXTROSE 5% IN WATER 100ML INJ 98 ML IV SCH ×4 (08:11→22:08)
[2017-01-12] MEDS: VALPROIC ACID SYRUP 250 MG/5 ML UDC PO SCH ×2 (08:12→19:56)
[2017-01-12] MEDS: MULTIVITAMIN TAB PEG SCH (08:12)
[2017-01-12] MEDS: BENEPROTEIN POWDER 1 PACK G-TUBE SCH ×3 (08:12→17:07)
[2017-01-12] MEDS: SODIUM CHLORIDE 0.9% FLUSH 10 ML FLUSH IV FLUSH SCH ×2 (08:12→19:56)
[2017-01-12] MEDS: metroNIDAZOLE 500 MG INJ 100 ML IV SCH ×3 (08:12→20:19)
[2017-01-12] MEDS: HYDROCORTISONE SOD SUCCINATE 100 MG VIAL IV PUSH SCH ×2 (08:12→15:52)
[2017-01-12] MEDS: FOLIC ACID 1 MG TAB PEG SCH (08:12)
[2017-01-12] MEDS: AMIODARONE 200 MG TAB PEG SCH (08:12)
[2017-01-12] MEDS: THIAMINE HCL 100 MG TAB PEG SCH (08:12)
[2017-01-12] MEDS: BACITRACIN TOP OINT 15 GM TUBE TOP SCH ×2 (08:13→19:56)
[2017-01-12] MEDS: POLYETHYLENE GLYCOL 17 GM PKG PO SCH ×2 (08:13→19:56)
[2017-01-12] MEDS: BISACODYL 10 MG SUPP RECTAL SCH (08:13)
[2017-01-12] MEDS: MAGNESIUM HYDROXIDE SUSP 30 ML CUP PO SCH (08:13)
[2017-01-12] MEDS: DOCUSATE SODIUM 50 MG/SENNA 8.6 MG TAB PO SCH ×2 (08:13→19:56)
[2017-01-12] MEDS ORDERED: SODIUM CHLOR 0.9% 1000 ML INJ 1,000 ML IV ONE ×2 (10:00→19:00)
[2017-01-12] MEDS ORDERED: ALBUMIN HUMAN 5% 25 GM/500 ML BOTTLE IV ONE (10:00)
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
[2017-01-12] MEDS: PIPERACIL-TAZO 2.25 GM PREMIX 50 ML IV SCH ×3 (10:27→23:17)
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
[2017-01-12] MEDS: ENOXAPARIN SODIUM 30 MG/0.3 ML SYRINGE SQ SCH (12:00)
[2017-01-12] MEDS ORDERED: PHARMACY ORDERED LAB ONE (14:45)
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
[2017-01-12 15:26] LABS: VANCOMYCIN TROUGH 1.8 MCG/ML (5.0-10.0)
[2017-01-12 16:14] LABS: BICARBONATE 22.2 MEQ/L (21.0-32.0); POTASSIUM 4.7 MEQ/L (3.5-5.1)
[2017-01-12 16:28] LABS: CALCIUM-PROTEIN CORRECTED 8.3 MG/DL (8.5-10.1)
[2017-01-12] MEDS ORDERED: VANCOMYCIN 1,500 MG/NS 500 ML IV ONE ×2 (17:00)
[2017-01-12] MEDS: NOREPINEPHRINE INJ 4 MG in SODIUM CHLOR 0.9% 250 ML INJ 246 ML IV SCH ×2 (17:07→22:09)
--- NOTE | 2017-01-12 17:56 | RADRPT ---
EXAM DATE/TIME: 01/12/2017 17:37 [facility] COMPARISON: CHEST SINGLE AP, January 11, 2017, 4:18. CT ABDOMEN & PELVIS W/O CONTRAST, January 11, 2017, 19:01. [facility] SINGLE AP, January 12, 2017, 5:14. INDICATIONS : Status post chest tube removal. MEDICAL HISTORY : Hypertension. SURGICAL HISTORY : None. ENCOUNTER: Subsequent ACUITY: 2 weeks PAIN SCORE: Non-responsive. LOCATION: Bilateral chest FINDINGS: Tracheostomy is stable in position. A left neck central line is stable. Nasogastric tube descends to the stomach. Her persistent bibasilar infiltrates and effusions. There is potentially a small lateral pneumothorax on the right, appearance is similar to previous exam. Perhaps 5 mm separation of apical pleural layers in this region. Cardiac contours are grossly stable. CONCLUSION: Tiny lateral pneumothorax. Brian Tipton MD on January 12, 2017 at 17:48 Board Certified Radiologist. This report was verified electronically.
[2017-01-12] MEDS: FAMOTIDINE 20 MG/2 ML VIAL IV PUSH SCH (19:56)
[2017-01-13] VITALS (20 sets, daily range): BP systolic 93–116; BP diastolic 58–73; PULSE 117–128; RESP 14–20; TEMP 97–98.1; O2SAT 93–98
--- NOTE | 2017-01-13 00:26 | RADRPT ---
EXAM DATE/TIME: 01/13/2017 00:03 [facility] COMPARISON: CHEST SINGLE AP, January 12, 2017, 17:37. INDICATIONS : Short of breath. MEDICAL HISTORY : Hypertension. SURGICAL HISTORY : None. ENCOUNTER: Subsequent ACUITY: 2 weeks PAIN SCORE: Non-responsive. LOCATION: Bilateral chest FINDINGS: A single portable frontal view of the chest shows no appreciable change. Bilateral pleural effusions and bilateral pulmonary infiltrates. Heart is normal in size. Tracheostomy tube, nasogastric tube, an d left-sided central line again noted. No pneumothorax seen. CONCLUSION: 1. No appreciable pneumothorax. 2. Unchanged bilateral pleural effusions and bilateral pulmonary infiltrates. Derek Ashraf Jr., MD on January 13, 2017 at 0:23 Board Certified Radiologist. This report was verified electronically.
[2017-01-13] MEDS: LACTULOSE SYRUP 20 GM/30 ML CUP PEG SCH (02:10)
[2017-01-13] MEDS: AMANTADINE HCL SOLN 100 MG/10 ML UDC PEG SCH (02:10)
[2017-01-13] MEDS: FREE WATER G-TUBE SCH ×5 (02:10→20:00)
[2017-01-13] MEDS: MIDAZOLAM 100 MG/NS 100 ML DRIP Premix IV SCH (02:11)
[2017-01-13] MEDS: HYDROCORTISONE SOD SUCCINATE 100 MG VIAL IV PUSH SCH ×3 (02:11→15:38)
[2017-01-13] MEDS: metroNIDAZOLE 500 MG INJ 100 ML IV SCH ×4 (02:16→20:04)
[2017-01-13] MEDS: NOREPINEPHRINE INJ 4 MG in SODIUM CHLOR 0.9% 250 ML INJ 246 ML IV SCH ×2 (02:19→16:09)
[2017-01-13] MEDS: RESP: ALBUTEROL 2.5 MG/IPRATROPIUM 0.5 MG NEB (SCH) NEB ×4 (03:11→20:10)
[2017-01-13] MEDS: CHLORHEXIDINE GLUCONATE 2 % 1 PACK (2 CLOTHS) TOP SCH (04:00)
[2017-01-13] MEDS: PIPERACIL-TAZO 2.25 GM PREMIX 50 ML IV SCH ×4 (04:22→22:00)
[2017-01-13] MEDS: LACTATED RINGER'S 1000 ML INJ 1,000 ML IV SCH ×4 (04:22→22:01)
[2017-01-13 04:47] LABS: MAGNESIUM 3.5 MG/DL (1.5-2.5); POTASSIUM 4.5 MEQ/L (3.5-5.1); TOTAL BILIRUBIN ADULT 0.4 MG/DL (0.2-1.0)
[2017-01-13 04:50] LABS: AUTOMATED NEUTROPHIL # 10.2 TH/MM3 (1.8-7.7); BASOPHIL % 0.1 % (0.0-2.0); HEMATOCRIT 25.2 % (39.0-51.0); LYMPH % 4.5 % (9.0-44.0); LYMPHOCYTE # 0.5 TH/MM3 (1.0-4.8); MEAN CELL VOLUME 98.7 FL (80.0-100.0); MEAN CORPUSCULAR HEMOGLOBIN 32.3 PG (27.0-34.0); MEAN CORPUSCULAR HGB CONC 32.7 % (32.0-36.0); MONO % 8.5 % (0.0-8.0); NEUT % 86.9 % (16.0-70.0); PLATELET COUNT 316 TH/MM3 (150-450); RED BLOOD COUNT 2.56 MIL/MM3 (4.50-5.90); WHITE BLOOD COUNT 11.7 TH/MM3 (4.0-11.0)
[2017-01-13 04:54] LABS: HEMO FLAGS AUTO DIFF
[2017-01-13 05:02] LABS: BLOOD GAS BASE EXCESS -6.7 mmol/L (-2-2); BLOOD GAS HCO3 20 mmol/L (22-26); BLOOD GAS METHEMOGLOBIN 0.7 % (0-2); BLOOD GAS O2 HGB SATURATION 92 % (90-100); BLOOD GAS OXYGEN CONTENT 17.9 Vol % (12.0-20.0); BLOOD GAS PCO2 58 mmHg (38-42); BLOOD GAS PO2 80 mmHg (61-120); BLOOD GAS TOTAL HGB 13.8 G/DL (12.0-16.0); TEMP CORR TO 98.6
[2017-01-13 05:03] LABS: CRITICAL VALUE YES; OXYGEN DEVICE VENTILATOR
[2017-01-13 05:04] LABS: DRAW SITE ART LINE; FIO2 45 %; STAT NO; VENT SETTINGS PRVC/AC/
--- NOTE | 2017-01-13 05:31 | RADRPT ---
EXAM DATE/TIME: 01/13/2017 04:08 [facility] COMPARISON: CHEST SINGLE AP, January 13, 2017, 0:03. INDICATIONS : Respiratory distress. MEDICAL HISTORY : Hypertension. SURGICAL HISTORY : None. ENCOUNTER: Subsequent ACUITY: 2 weeks PAIN SCORE: Non-responsive. LOCATION: Bilateral chest FINDINGS: A single portable frontal view of chest shows no significant change. Small bilateral pleural effusion s and bibasilar infiltrates are unchanged. Heart is normal size. Tracheostomy tube, nasogastric tube, and central line are again noted. Calcified granuloma left upper lobe. CONCLUSION: Unchanged bilateral pleural effusions and bibasilar infiltrates. Derek Ashraf Jr., MD on January 13, 2017 at 5:29 Board Certified Radiologist. This report was verified electronically.
[2017-01-13] MEDS: INSULIN NovoLIN REGULAR SUPPLEMENTAL SCALE SQ SCH ×4 (06:00→17:34)
[2017-01-13 08:07] LABS: BANDS 14 % (0-6); NEUTROPHIL # MANUAL DIFF 9.7 TH/MM3 (1.8-7.7); PLATELET ESTIMATE SMEAR NORMAL (NORMAL); PLATELET MORPHOLOGY NORMAL (NORMAL); POLYS (SEG NEUTROPHILS) 69 % (16-70); SCAN/DIFF FINAL DIFF MANUAL; WBC DIFF SAMPLE 100
[2017-01-13] MEDS: FAMOTIDINE 20 MG/2 ML VIAL IV PUSH SCH ×2 (08:19→20:04)
[2017-01-13] MEDS: CHLORHEXIDINE 0.12% (ORAL KIT) 15 ML CUP MT SCH ×2 (08:19→20:04)
[2017-01-13] MEDS: BISACODYL 10 MG SUPP RECTAL SCH (08:19)
[2017-01-13] MEDS: MICAFUNGIN INJ 100 MG in SODIUM CHLORIDE 0.9% INJ 100 ML IV SCH (08:19)
[2017-01-13] MEDS: BACITRACIN TOP OINT 15 GM TUBE TOP SCH ×2 (08:22→20:04)
[2017-01-13] MEDS: SODIUM CHLORIDE 0.9% FLUSH 10 ML FLUSH IV FLUSH SCH ×2 (08:22→20:04)
[2017-01-13] MEDS: VASOPRESSIN INJ 40 UNITS in DEXTROSE 5% IN WATER 100ML INJ 98 ML IV SCH ×2 (08:32)
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
[2017-01-13 10:41] LABS: BLOOD GAS BASE EXCESS -5.7 mmol/L (-2-2); BLOOD GAS CARBOXYHEMOGLOBIN 1.4 % (0-4); BLOOD GAS HCO3 19 mmol/L (22-26); BLOOD GAS METHEMOGLOBIN 0.7 % (0-2); BLOOD GAS O2 HGB SATURATION 94 % (90-100); BLOOD GAS OXYGEN CONTENT 13.7 Vol % (12.0-20.0); BLOOD GAS PCO2 39 mmHg (38-42); BLOOD GAS PO2 84 mmHg (61-120); BLOOD GAS TOTAL HGB 10.3 G/DL (12.0-16.0); TEMP CORR TO 98.6
[2017-01-13 10:42] LABS: CRITICAL VALUE NO; DRAW SITE ART LINE; FIO2 40 %; OXYGEN DEVICE VENTILATOR; STAT NO; VENT SETTINGS PRVC/AC
[2017-01-13] MEDS: BENEPROTEIN POWDER 1 PACK G-TUBE SCH ×3 (10:56→17:03)
[2017-01-13] MEDS: ENOXAPARIN SODIUM 30 MG/0.3 ML SYRINGE SQ SCH (11:02)
[2017-01-13] MEDS: DIGOXIN 0.5 MG/2 ML VIAL IV PUSH SCH (11:02)
[2017-01-13] MEDS: FOLIC ACID 1 MG TAB PEG SCH (11:02)
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
[2017-01-13] MEDS ORDERED: PHARMACY ORDERED LAB ONE (14:45)
[2017-01-14] VITALS (18 sets, daily range): BP systolic 92–147; BP diastolic 57–82; PULSE 69–133; RESP 20–22; TEMP 97.9–98.4; O2SAT 95–97
[2017-01-14] MEDS: HYDROCORTISONE SOD SUCCINATE 100 MG VIAL IV PUSH SCH ×4 (00:10→23:45)
[2017-01-14] MEDS: metroNIDAZOLE 500 MG INJ 100 ML IV SCH ×4 (01:53→20:39)
[2017-01-14] MEDS: RESP: ALBUTEROL 2.5 MG/IPRATROPIUM 0.5 MG NEB (SCH) NEB ×4 (03:33→19:28)
[2017-01-14] MEDS: CHLORHEXIDINE GLUCONATE 2 % 1 PACK (2 CLOTHS) TOP SCH (04:00)
[2017-01-14] MEDS: FREE WATER G-TUBE SCH ×7 (04:00→23:45)
[2017-01-14 04:30] LABS: AUTOMATED NEUTROPHIL # 8.8 TH/MM3 (1.8-7.7); BASOPHIL % 0.1 % (0.0-2.0); HEMATOCRIT 22.8 % (39.0-51.0); LYMPH % 4.3 % (9.0-44.0); LYMPHOCYTE # 0.4 TH/MM3 (1.0-4.8); MEAN CELL VOLUME 97.7 FL (80.0-100.0); MEAN CORPUSCULAR HEMOGLOBIN 31.6 PG (27.0-34.0); MEAN CORPUSCULAR HGB CONC 32.3 % (32.0-36.0); NEUT % 88.6 % (16.0-70.0); PLATELET COUNT 217 TH/MM3 (150-450); RED BLOOD COUNT 2.33 MIL/MM3 (4.50-5.90); RED CELL DISTRIBUTION WIDTH 15.9 % (11.6-17.2)
[2017-01-14 04:36] LABS: HEMO FLAGS AUTO DIFF
[2017-01-14] MEDS: PIPERACIL-TAZO 2.25 GM PREMIX 50 ML IV SCH ×4 (04:47→23:45)
[2017-01-14] MEDS: LACTATED RINGER'S 1000 ML INJ 1,000 ML IV SCH ×3 (04:51→16:58)
[2017-01-14 05:09] LABS: BICARBONATE 22.3 MEQ/L (21.0-32.0); CALCIUM-PROTEIN CORRECTED 8.8 MG/DL (8.5-10.1); MAGNESIUM 3.1 MG/DL (1.5-2.5); POTASSIUM 3.7 MEQ/L (3.5-5.1); TOTAL BILIRUBIN ADULT 0.3 MG/DL (0.2-1.0)
[2017-01-14 05:12] LABS: BLOOD GAS BASE EXCESS -2.9 mmol/L (-2-2); BLOOD GAS CARBOXYHEMOGLOBIN 1.2 % (0-4); BLOOD GAS HCO3 22 mmol/L (22-26); BLOOD GAS METHEMOGLOBIN 0.7 % (0-2); BLOOD GAS O2 HGB SATURATION 94 % (90-100); BLOOD GAS OXYGEN CONTENT 19.4 Vol % (12.0-20.0); BLOOD GAS PCO2 42 mmHg (38-42); BLOOD GAS PO2 86 mmHg (61-120); BLOOD GAS TOTAL HGB 14.6 G/DL (12.0-16.0); TEMP CORR TO 98.6
[2017-01-14 05:13] LABS: CRITICAL VALUE NO; OXYGEN DEVICE VENTILATOR; VENT SETTINGS PRVC/AC/
[2017-01-14 05:14] LABS: DRAW SITE ART LINE; FIO2 40 %; STAT NO
[2017-01-14] MEDS ORDERED: PHARMACY ORDERED LAB ONE (06:00)
[2017-01-14] MEDS: INSULIN NovoLIN REGULAR SUPPLEMENTAL SCALE SQ SCH ×4 (06:00→16:58)
[2017-01-14 07:13] LABS: BANDS 17 % (0-6); NEUTROPHIL # MANUAL DIFF 9.1 TH/MM3 (1.8-7.7); PLATELET ESTIMATE SMEAR NORMAL (NORMAL); PLATELET MORPHOLOGY NORMAL (NORMAL); POLYS (SEG NEUTROPHILS) 74 % (16-70); SCAN/DIFF FINAL DIFF MANUAL; WBC DIFF SAMPLE 100
[2017-01-14] MEDS: VASOPRESSIN INJ 40 UNITS in DEXTROSE 5% IN WATER 100ML INJ 98 ML IV SCH ×2 (08:32)
[2017-01-14] MEDS: BACITRACIN TOP OINT 15 GM TUBE TOP SCH ×2 (09:00→20:40)
[2017-01-14] MEDS: DIGOXIN 0.5 MG/2 ML VIAL IV PUSH SCH (09:30)
[2017-01-14] MEDS: FAMOTIDINE 20 MG/2 ML VIAL IV PUSH SCH ×2 (09:30→20:39)
[2017-01-14] MEDS: SODIUM CHLORIDE 0.9% FLUSH 10 ML FLUSH IV FLUSH SCH ×2 (09:31→20:40)
[2017-01-14] MEDS: MICAFUNGIN INJ 100 MG in SODIUM CHLORIDE 0.9% INJ 100 ML IV SCH (09:32)
[2017-01-14] MEDS: FOLIC ACID 1 MG TAB PEG SCH (09:34)
[2017-01-14] MEDS: BISACODYL 10 MG SUPP RECTAL SCH (09:34)
[2017-01-14] MEDS: CHLORHEXIDINE 0.12% (ORAL KIT) 15 ML CUP MT SCH ×2 (09:35→20:39)
[2017-01-14] MEDS: BENEPROTEIN POWDER 1 PACK G-TUBE SCH ×3 (09:36→16:58)
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
[2017-01-14] MEDS ORDERED: AMIODARONE IV SCH ×2 (11:00)
[2017-01-14] MEDS ORDERED: WATER IV SCH ×2 (11:00)
[2017-01-14] MEDS ORDERED: AMIODARONE INJ 150 MG in DEXTROSE 5% IN WATER 100ML INJ 97 ML IV ONE ×2 (11:00)
[2017-01-14] MEDS ORDERED: DEXTROSE 5% IV SCH ×2 (11:00)
[2017-01-14] MEDS ORDERED: DIGOXIN 0.5 MG/2 ML VIAL IV PUSH ONE (11:00)
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
[2017-01-14] MEDS ORDERED: VANCOMYCIN INJ 1,500 MG in SODIUM CHLORID 0.9% 500 ML INJ 500 ML IV ONE (12:00)
[2017-01-14] MEDS: ENOXAPARIN SODIUM 30 MG/0.3 ML SYRINGE SQ SCH (12:06)
[2017-01-14] MEDS: AMIODARONE INJ 450 MG in D5W (EXCEL BAG) 241 ML IV SCH ×2 (12:07→20:50)
--- NOTE | 2017-01-14 12:18 | EKG ---
Date Performed: 01/14/2017 Time Performed: 06:29:06 PTAGE: 71 years EKG: Possible atrial flutter with rapid ventricular response. IV conduction defectInferior/later al T wave changes are Nonspecific. Low QRS voltages in precordial leads PREVIOUS TRACING 12/27/2016 08.38.08 DOCTOR: Blane Olson Interpretating Date/Time 01/18/2017 15:16:23
--- NOTE | 2017-01-14 12:40 | MP ---
cc: JONG FISHMAN MD DATE OF SURGERY 01/11/2017 PREOPERATIVE DIAGNOSES Peritonitis, sepsis. Gastric perforation. Iatrogenic leak. POSTOPERATIVE DIAGNOSES Peritonitis, sepsis. Gastric perforation. Iatrogenic leak. Displacement of a feeding percutaneous gastrostomy tube. OPERATIVE PROCEDURE Exploratory laparotomy. Evacuation of 5 liters of enteral feedings, washout. Repair of the gastric perforation and feeding jejunostomy. SURGEON MD Chika ANESTHESIA General. ESTIMATED BLOOD LOSS Probably 50 cc. INDICATIONS FOR PROCEDURE This 71-year-old male came to the ICU for unrelated reason. He had a percutaneous gastrostomy tube placed about five days ago. The in the last 48 hours became more ill, showed sign of AO the sinus shows sign of hyperdynamic systemic inflammation and sepsis and increased abdominal tenderness. Intraabdominal source was suspected. The patient had a left shift with a bandemia, underwent CAT scan which revealed a large amount of fluid in the abdomen; it was clear what the patient had. The patient was taken to the operating room for exploration. OPERATIVE PROCEDURE A midabdominal incision is made in the epigastrium measuring about 5 inches in length, deepened down and the abdomen entered. Upon entrance of the abdomen there is a milky white fluid from the feedings and about 5 liters of this fluid is evacuated. The abdomen is now washed out with copious amounts of saline, about 4 liters of the same. The fluid is suctioned from the right paracolic gutter, the left paracolic gutter of pelvis, right subphrenic and left subphrenic space. There is a massive amount of this, as I said, about 5 liters. The gastrostomy site is now inspected. The gastrostomy is in the free abdominal cavity and there is an inch rent in the gastric wall. This must have occurred when the patient pulled on his gastrostomy tube because he was restless so it got dislodged. The gastrostomy tube is now removed. The gastric perforation is now sought. It is on the anterior wall of the stomach, measured about 3 cm in length and this is torn. Edges are debrided with cautery and grasped with Allis clamps. The closure is now attained in two layers using 2-0 silk interrupted stitches in the seromuscular layer and then this was followed by a second layer of 2-0 silk seromuscular stitches over it. Omentum is now placed in the area and attached with previously placed stitches creating sort of a Vinny patch. Initially I thought maybe to use the same opening to place a new gastrostomy but it is too big, too torn and too diseased-looking to be used. NG tube is now placed for decompression. The small bowel is now run, cleaned from fibrin deposits which are massive. The large bowel is now run; it is dilated with ileus but no other disease is noted. The liver appears to be cirrhotic and firm. The small bowel is now again run and a point is chosen about a foot from the ligament of Treitz. There a 2-0 silk pursestring stitch is placed and then through the abdominal wall and feeding jejunostomy a 20-Thai was introduced into the bowel. The pursestring is tied and now a Witzel jejunostomy is created with interrupted 2-0 silk pop-offs creating a nice tunnel. The jejunostomy is now attached to the anterior abdominal wall with triangular horizontal mattress sutures using 2-0 Vicryl and then additional 3-0 silks are placed to attach it firmly. The tube is now flushed, flushes easily. The abdomen is once more irrigated with three more liters of warm saline, then a Davol-Collins drain is placed in the pelvis. The abdomen is closed with #1 PDS loop and noemi. The patient tolerated the procedure well. Jong BERRIOS /10:41 PM /12:22 PM
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
[2017-01-14] MEDS: MIDAZOLAM 100 MG/NS 100 ML DRIP Premix IV SCH (20:39)
[2017-01-14] MEDS: fentaNYL DRIP 250 ML IV SCH (20:40)
[2017-01-15] VITALS (19 sets, daily range): BP systolic 119–174; BP diastolic 62–93; PULSE 62–93; RESP 20–21; TEMP 97.2–97.9; O2SAT 94–99
[2017-01-15] MEDS: LACTATED RINGER'S 1000 ML INJ 1,000 ML IV SCH ×4 (00:04→20:04)
[2017-01-15] MEDS: metroNIDAZOLE 500 MG INJ 100 ML IV SCH ×4 (02:49→20:53)
[2017-01-15] MEDS: RESP: ALBUTEROL 2.5 MG/IPRATROPIUM 0.5 MG NEB (SCH) NEB ×3 (03:30→15:15)
[2017-01-15] MEDS: FREE WATER G-TUBE SCH ×5 (04:00→20:00)
[2017-01-15] MEDS: CHLORHEXIDINE GLUCONATE 2 % 1 PACK (2 CLOTHS) TOP SCH (04:00)
[2017-01-15] MEDS: PIPERACIL-TAZO 2.25 GM PREMIX 50 ML IV SCH ×4 (05:20→22:06)
--- NOTE | 2017-01-15 05:26 | RADRPT ---
EXAM DATE/TIME: 01/15/2017 05:11 [place] COMPARISON: CHEST SINGLE AP, January 13, 2017, 4:08. INDICATIONS : Shortness of breath, possible pulmonary disease. MEDICAL HISTORY : Hypertension. SURGICAL HISTORY : None. ENCOUNTER: Subsequent ACUITY: 2 weeks PAIN SCORE: Non-responsive. LOCATION: Bilateral chest FINDINGS: Single portable frontal view of the chest shows some progression in the bibasilar infiltrates. Bilate ral pleural effusions are stable. Heart is normal in size. Tracheostomy tube, nasogastric tube, and l eft-sided central line are unchanged. CONCLUSION: Some progression in the bibasilar infiltrates. Derek Ashraf Jr., MD on January 15, 2017 at 5:23 Board Certified Radiologist. This report was verified electronically.
[2017-01-15 05:37] LABS: HEMATOCRIT 24.2 % (39.0-51.0); MEAN CELL VOLUME 97.1 FL (80.0-100.0); MEAN CORPUSCULAR HEMOGLOBIN 31.5 PG (27.0-34.0); MEAN CORPUSCULAR HGB CONC 32.4 % (32.0-36.0); PLATELET COUNT 244 TH/MM3 (150-450); RED CELL DISTRIBUTION WIDTH 15.6 % (11.6-17.2); REVIEW FLAG FINAL; WHITE BLOOD COUNT 10.6 TH/MM3 (4.0-11.0)
[2017-01-15] MEDS: INSULIN NovoLIN REGULAR SUPPLEMENTAL SCALE SQ SCH ×4 (06:00→18:00)
[2017-01-15 06:02] LABS: BICARBONATE 23.9 MEQ/L (21.0-32.0); POTASSIUM 4.2 MEQ/L (3.5-5.1)
[2017-01-15] MEDS: BACITRACIN TOP OINT 15 GM TUBE TOP SCH ×2 (09:00→20:54)
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
[2017-01-15] MEDS: CHLORHEXIDINE 0.12% (ORAL KIT) 15 ML CUP MT SCH ×2 (10:58→20:53)
[2017-01-15] MEDS: BENEPROTEIN POWDER 1 PACK G-TUBE SCH ×3 (10:58→18:00)
[2017-01-15] MEDS: SODIUM CHLORIDE 0.9% FLUSH 10 ML FLUSH IV FLUSH SCH ×2 (10:58→20:54)
[2017-01-15] MEDS: MICAFUNGIN INJ 100 MG in SODIUM CHLORIDE 0.9% INJ 100 ML IV SCH (10:59)
[2017-01-15] MEDS: DIGOXIN 0.5 MG/2 ML VIAL IV PUSH SCH (11:00)
[2017-01-15] MEDS: HYDROCORTISONE SOD SUCCINATE 100 MG VIAL IV PUSH SCH ×2 (11:00→16:00)
[2017-01-15] MEDS: VALPROIC ACID SYRUP 250 MG/5 ML UDC PO SCH ×2 (11:00→20:53)
[2017-01-15] MEDS: AMIODARONE 200 MG TAB PO SCH ×2 (11:00→20:53)
[2017-01-15] MEDS: BISACODYL 10 MG SUPP RECTAL SCH (11:01)
[2017-01-15] MEDS: FAMOTIDINE 20 MG/2 ML VIAL IV PUSH SCH ×2 (11:01→20:53)
[2017-01-15] MEDS: FOLIC ACID 1 MG TAB PEG SCH (11:01)
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
[2017-01-15] MEDS ORDERED: AMANTADINE HCL 100 MG CAP PO SCH (12:00)
[2017-01-15] MEDS: ENOXAPARIN SODIUM 30 MG/0.3 ML SYRINGE SQ SCH (12:40)
[2017-01-15] MEDS: RESP: ALBUTEROL 2.5 MG/IPRATROPIUM 0.5 MG NEB (PRN) NEB (19:29)
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
[2017-01-16] VITALS (19 sets, daily range): BP systolic 118–167; BP diastolic 66–79; PULSE 61–120; RESP 20; TEMP 97.3–98.4; O2SAT 97–100
[2017-01-16] MEDS: HYDROCORTISONE SOD SUCCINATE 100 MG VIAL IV PUSH SCH ×3 (01:58→20:09)
[2017-01-16] MEDS: metroNIDAZOLE 500 MG INJ 100 ML IV SCH ×4 (01:58→20:08)
[2017-01-16] MEDS: LACTATED RINGER'S 1000 ML INJ 1,000 ML IV SCH ×4 (02:44→21:51)
[2017-01-16 03:48] LABS: AUTOMATED NEUTROPHIL # 11.2 TH/MM3 (1.8-7.7); BASOPHIL % 0.1 % (0.0-2.0); LYMPHOCYTE # 0.5 TH/MM3 (1.0-4.8); MEAN CORPUSCULAR HEMOGLOBIN 31.3 PG (27.0-34.0); MEAN CORPUSCULAR HGB CONC 32.6 % (32.0-36.0); MONO % 5.8 % (0.0-8.0); NEUT % 90.1 % (16.0-70.0); PLATELET COUNT 284 TH/MM3 (150-450); RED CELL DISTRIBUTION WIDTH 15.6 % (11.6-17.2); WHITE BLOOD COUNT 12.5 TH/MM3 (4.0-11.0)
[2017-01-16 03:52] LABS: HEMO FLAGS AUTO DIFF
[2017-01-16] MEDS: CHLORHEXIDINE GLUCONATE 2 % 1 PACK (2 CLOTHS) TOP SCH (03:53)
[2017-01-16] MEDS: FREE WATER G-TUBE SCH ×7 (03:53→23:33)
[2017-01-16 04:02] LABS: ALT (GPT) 12 U/L (12-78); ANION GAP 8 MEQ/L (5-15); AST (GOT) 8 U/L (15-37); BLOOD UREA NITROGEN 37 MG/DL (7-18); CHLORIDE 115 MEQ/L (98-107); GLOMERULAR FILTRATION RATE 37 ML/MIN (>89); POTASSIUM 4.2 MEQ/L (3.5-5.1); SODIUM (NA) 149 MEQ/L (136-145)
[2017-01-16 04:04] LABS: ALKALINE PHOSPHATASE 91 U/L (45-117); TOTAL BILIRUBIN ADULT 0.3 MG/DL (0.2-1.0)
[2017-01-16 04:44] LABS: SCAN/DIFF AUTO DIFF CONFIRMED
[2017-01-16 04:45] LABS: PLATELET ESTIMATE SMEAR NORMAL (NORMAL); PLATELET MORPHOLOGY NORMAL (NORMAL)
[2017-01-16] MEDS: INSULIN NovoLIN REGULAR SUPPLEMENTAL SCALE SQ SCH ×5 (05:23→23:33)
[2017-01-16] MEDS: PIPERACIL-TAZO 2.25 GM PREMIX 50 ML IV SCH ×4 (05:24→23:32)
[2017-01-16] MEDS ORDERED: AMANTADINE HCL 100 MG CAP PO SCH (07:00)
[2017-01-16] MEDS: BENEPROTEIN POWDER 1 PACK G-TUBE SCH ×3 (08:48→16:24)
[2017-01-16] MEDS: MICAFUNGIN INJ 100 MG in SODIUM CHLORIDE 0.9% INJ 100 ML IV SCH (08:48)
[2017-01-16] MEDS: FAMOTIDINE 20 MG/2 ML VIAL IV PUSH SCH ×2 (08:49→20:09)
[2017-01-16] MEDS: SODIUM CHLORIDE 0.9% FLUSH 10 ML FLUSH IV FLUSH SCH ×2 (08:50→20:09)
[2017-01-16] MEDS: CHLORHEXIDINE 0.12% (ORAL KIT) 15 ML CUP MT SCH ×2 (08:50→20:09)
[2017-01-16] MEDS: DIGOXIN 0.5 MG/2 ML VIAL IV PUSH SCH (08:50)
[2017-01-16] MEDS: AMIODARONE 200 MG TAB PO SCH ×2 (08:51→20:10)
[2017-01-16] MEDS: FOLIC ACID 1 MG TAB PEG SCH (08:51)
[2017-01-16] MEDS: BACITRACIN TOP OINT 15 GM TUBE TOP SCH ×2 (08:51→20:11)
[2017-01-16] MEDS: BISACODYL 10 MG SUPP RECTAL SCH (08:51)
[2017-01-16] MEDS: VALPROIC ACID SYRUP 250 MG/5 ML UDC PO SCH ×2 (09:00→20:08)
[2017-01-16] MEDS: METOPROLOL TARTRATE 5 MG/5 ML VIAL IV PUSH SCH ×2 (10:37→14:53)
[2017-01-16] MEDS: ENOXAPARIN SODIUM 30 MG/0.3 ML SYRINGE SQ SCH (10:39)
[2017-01-16] MEDS: MIDAZOLAM 100 MG/NS 100 ML DRIP Premix IV SCH (10:40)
[2017-01-16] MEDS: fentaNYL DRIP 250 ML IV SCH ×2 (10:40→21:51)
[2017-01-16] MEDS ORDERED: DIATRIZOATE MEGLUM/DIATRIZOATE SOD 9 ML CUP PO ONE (11:15)
[2017-01-16] MEDS ORDERED: VANCOMYCIN 1,500 MG/NS 500 ML IV ONE ×2 (12:00)
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
--- NOTE | 2017-01-16 17:08 | RADRPT ---
EXAM DATE/TIME: 01/16/2017 15:19 [place] COMPARISON: CT ABDOMEN & PELVIS W/O CONTRAST, January 11, 2017, 19:01. INDICATIONS : Abdominal distention. ORAL CONTRAST: Prescribed oral contrast ingested. RADIATION DOSE: 17.89 CTDIvol (mGy) MEDICAL HISTORY : Hypertension. Renal calculi. SURGICAL HISTORY : None. ENCOUNTER: Initial ACUITY: 1 day PAIN SCALE: Non-responsive LOCATION: abdomen TECHNIQUE: Volumetric scanning of the abdomen and pelvis was performed. Using automated exposure control and ad justment of the mA and/or kV according to patient size, radiation dose was kept as low as reasonably achievable to obtain optimal diagnostic quality images. FINDINGS: Imaging through the lung bases demonstrates bilateral pleural effusions. These are small in size but have increased as compared to previous exam. There are atelectatic changes in both lower lobes. The liver is small in size and cirrhotic appearing. There is ascites seen diffusely throughout the up per abdomen. The volume of ascites is significantly less than seen on prior study. The spleen is small in size. The pancreas, adrenal glands and kidneys are intact. Note is made of a 6 .2 x 3.8 cm simple cyst arising from the left kidney. Note is made of a jejunal feeding tube entering through the anterior abdominal wall. There is ascites within the pelvis. No iliac or inguinal adenopathy is seen. There is a Joseph cathete r within the bladder. The abdominal aorta is normal in caliber. No retroperitoneal adenopathy is present. CONCLUSION: 1. There is abdominal ascites. The overall amount of ascites appears less than seen on prior. 2. No findings to indicate bowel obstruction. 3. There is a jejunal tube in place. 4. Diffuse body wall edema consistent with anasarca. 5. Increasing bilateral effusions and atelectatic change within the lung bases. 6. Stable rib fractures there are fractures involving the right posterior seventh rib and seventh an d eighth left lateral ribs Frank Jaquez MD on January 16, 2017 at 17:03 Board Certified Radiologist. This report was verified electronically.
[2017-01-16] MEDS: METOPROLOL TARTRATE 25 MG TAB PO SCH ×4 (17:19→23:20)
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
[2017-01-17] VITALS (18 sets, daily range): BP systolic 96–143; BP diastolic 54–74; PULSE 58–93; RESP 20–23; TEMP 97.7–99.6; O2SAT 94–100
[2017-01-17] MEDS: metroNIDAZOLE 500 MG INJ 100 ML IV SCH ×4 (03:35→19:21)
[2017-01-17] MEDS: FREE WATER G-TUBE SCH ×6 (03:42→22:51)
[2017-01-17] MEDS: CHLORHEXIDINE GLUCONATE 2 % 1 PACK (2 CLOTHS) TOP SCH (03:43)
[2017-01-17] MEDS: LACTATED RINGER'S 1000 ML INJ 1,000 ML IV SCH ×3 (03:43→16:27)
[2017-01-17 03:48] LABS: AUTOMATED NEUTROPHIL # 16.3 TH/MM3 (1.8-7.7); BASOPHIL % 0.1 % (0.0-2.0); EOSINOPHIL % 0.1 % (0.0-4.0); HEMATOCRIT 27.2 % (39.0-51.0); LYMPH % 5.8 % (9.0-44.0); LYMPHOCYTE # 1.1 TH/MM3 (1.0-4.8); MEAN CELL VOLUME 94.9 FL (80.0-100.0); MEAN CORPUSCULAR HEMOGLOBIN 30.7 PG (27.0-34.0); MEAN CORPUSCULAR HGB CONC 32.3 % (32.0-36.0); MONO % 5.7 % (0.0-8.0); NEUT % 88.3 % (16.0-70.0); PLATELET COUNT 323 TH/MM3 (150-450); RED BLOOD COUNT 2.86 MIL/MM3 (4.50-5.90); WHITE BLOOD COUNT 18.5 TH/MM3 (4.0-11.0)
[2017-01-17 03:55] LABS: HEMO FLAGS AUTO DIFF
[2017-01-17 04:20] LABS: ALT (GPT) 14 U/L (12-78); ANION GAP 8 MEQ/L (5-15); AST (GOT) 10 U/L (15-37); BICARBONATE 29.3 MEQ/L (21.0-32.0); BLOOD UREA NITROGEN 35 MG/DL (7-18); CHLORIDE 116 MEQ/L (98-107); GLOMERULAR FILTRATION RATE 40 ML/MIN (>89); POTASSIUM 3.9 MEQ/L (3.5-5.1); SODIUM (NA) 153 MEQ/L (136-145)
[2017-01-17 04:23] LABS: ALKALINE PHOSPHATASE 87 U/L (45-117); TOTAL BILIRUBIN ADULT 0.4 MG/DL (0.2-1.0)
[2017-01-17] MEDS: METOPROLOL TARTRATE 25 MG TAB PO SCH ×4 (04:45→22:52)
[2017-01-17] MEDS: PIPERACIL-TAZO 2.25 GM PREMIX 50 ML IV SCH ×4 (04:45→22:51)
[2017-01-17 05:37] LABS: BANDS 12 % (0-6); METAMYELOCYTES 3 % (0-1); PLATELET ESTIMATE SMEAR NORMAL (NORMAL); PLATELET MORPHOLOGY NORMAL (NORMAL); POLYS (SEG NEUTROPHILS) 77 % (16-70); SCAN/DIFF FINAL DIFF MANUAL; TOXIC GRANULATION 1+ (NORMAL); WBC DIFF SAMPLE 100
[2017-01-17] MEDS: INSULIN NovoLIN REGULAR SUPPLEMENTAL SCALE SQ SCH ×4 (05:43→22:52)
--- NOTE | 2017-01-17 06:19 | RADRPT ---
EXAM DATE/TIME: 01/17/2017 05:28 [facility] COMPARISON: CT THORAX W/O CONTRAST, January 10, 2017, 6:22. CHEST SINGLE AP, January 15, 2017, 5:11. INDICATIONS : Follow up infiltrates. MEDICAL HISTORY : None. SURGICAL HISTORY : None. ENCOUNTER: Subsequent ACUITY: 4 - 6 days PAIN SCORE: Non-responsive. LOCATION: Bilateral chest FINDINGS: The tracheostomy tube and NG tube are well placed. The heart size is normal. There is increased densi ty at the mid and lower lungs bilaterally being worse on the right. Bilateral rib fractures are prese nt. The left-sided fractures appear chronic. CONCLUSION: Increased density the lower lungs bilaterally being worse on the right likely related to bilateral ef fusions with some accompanying atelectasis or consolidation at the lung bases. Brian Chavze MD on January 17, 2017 at 6:15 Board Certified Radiologist. This report was verified electronically.
[2017-01-17] MEDS: CHLORHEXIDINE 0.12% (ORAL KIT) 15 ML CUP MT SCH ×2 (08:10→19:21)
[2017-01-17] MEDS: MICAFUNGIN INJ 100 MG in SODIUM CHLORIDE 0.9% INJ 100 ML IV SCH (08:17)
[2017-01-17] MEDS: SODIUM CHLORIDE 0.9% FLUSH 10 ML FLUSH IV FLUSH SCH ×2 (08:57→19:21)
[2017-01-17] MEDS: BENEPROTEIN POWDER 1 PACK G-TUBE SCH ×3 (09:00→11:01)
[2017-01-17] MEDS: DIGOXIN 0.5 MG/2 ML VIAL IV PUSH SCH (09:05)
[2017-01-17] MEDS: FAMOTIDINE 20 MG/2 ML VIAL IV PUSH SCH ×2 (09:06→19:21)
[2017-01-17] MEDS: VALPROIC ACID SYRUP 250 MG/5 ML UDC PO SCH ×2 (09:06→19:22)
[2017-01-17] MEDS: FOLIC ACID 1 MG TAB PEG SCH (09:06)
[2017-01-17] MEDS: HYDROCORTISONE SOD SUCCINATE 100 MG VIAL IV PUSH SCH ×2 (09:06→19:22)
[2017-01-17] MEDS: BISACODYL 10 MG SUPP RECTAL SCH (09:06)
[2017-01-17] MEDS: AMIODARONE 200 MG TAB PO SCH ×2 (09:06→19:22)
[2017-01-17] MEDS: BACITRACIN TOP OINT 15 GM TUBE TOP SCH ×2 (09:07→21:00)
[2017-01-17] MEDS: ENOXAPARIN SODIUM 30 MG/0.3 ML SYRINGE SQ SCH (10:53)
[2017-01-17] MEDS: fentaNYL DRIP 250 ML IV SCH (13:17)
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
[2017-01-17] MEDS: hydrALAZINE HCL 20 MG/ML VIAL IV PUSH PRN (18:16)
[2017-01-17] MEDS: MIDAZOLAM 100 MG/NS 100 ML DRIP Premix IV SCH (19:22)
[2017-01-18] VITALS (19 sets, daily range): BP systolic 89–178; BP diastolic 50–115; PULSE 61–133; RESP 20–25; TEMP 98.8–100.4; O2SAT 96–100
[2017-01-18] MEDS: LACTATED RINGER'S 1000 ML INJ 1,000 ML IV SCH ×5 (01:24→23:46)
[2017-01-18] MEDS: metroNIDAZOLE 500 MG INJ 100 ML IV SCH ×4 (02:54→19:34)
[2017-01-18] MEDS: CHLORHEXIDINE GLUCONATE 2 % 1 PACK (2 CLOTHS) TOP SCH (02:54)
[2017-01-18] MEDS: FREE WATER G-TUBE SCH ×6 (02:54→23:46)
[2017-01-18] MEDS: PIPERACIL-TAZO 2.25 GM PREMIX 50 ML IV SCH ×4 (05:00→23:45)
[2017-01-18] MEDS: INSULIN NovoLIN REGULAR SUPPLEMENTAL SCALE SQ SCH ×4 (06:00→23:33)
[2017-01-18] MEDS: METOPROLOL TARTRATE 25 MG TAB PO SCH ×4 (06:00→23:45)
[2017-01-18] MEDS: fentaNYL DRIP 250 ML IV SCH ×2 (06:07→23:45)
[2017-01-18] MEDS: MICAFUNGIN INJ 100 MG in SODIUM CHLORIDE 0.9% INJ 100 ML IV SCH (08:30)
[2017-01-18] MEDS: CHLORHEXIDINE 0.12% (ORAL KIT) 15 ML CUP MT SCH ×2 (08:31→19:36)
[2017-01-18] MEDS: BENEPROTEIN POWDER 1 PACK G-TUBE SCH ×2 (08:31→09:47)
[2017-01-18] MEDS: SODIUM CHLORIDE 0.9% FLUSH 10 ML FLUSH IV FLUSH SCH ×2 (08:31→19:33)
[2017-01-18] MEDS: HYDROCORTISONE SOD SUCCINATE 100 MG VIAL IV PUSH SCH ×2 (08:32→19:34)
[2017-01-18] MEDS: DIGOXIN 0.5 MG/2 ML VIAL IV PUSH SCH (08:32)
[2017-01-18] MEDS: FOLIC ACID 1 MG TAB PEG SCH (08:33)
[2017-01-18] MEDS: VALPROIC ACID SYRUP 250 MG/5 ML UDC PO SCH ×2 (08:33→19:35)
[2017-01-18] MEDS: BISACODYL 10 MG SUPP RECTAL SCH (08:33)
[2017-01-18] MEDS: AMIODARONE 200 MG TAB PO SCH ×2 (08:33→19:34)
[2017-01-18] MEDS: BACITRACIN TOP OINT 15 GM TUBE TOP SCH ×2 (08:34→19:35)
[2017-01-18] MEDS: FAMOTIDINE 20 MG/2 ML VIAL IV PUSH SCH ×2 (08:34→19:34)
[2017-01-18] MEDS: LABETALOL HCL 100 MG/20 ML VIAL IV PRN ×2 (09:17→12:10)
[2017-01-18 09:22] LABS: AUTOMATED NEUTROPHIL # 18.5 TH/MM3 (1.8-7.7); BASOPHIL % 0.2 % (0.0-2.0); EOSINOPHIL % 0.1 % (0.0-4.0); HEMATOCRIT 30.7 % (39.0-51.0); LYMPH % 5.5 % (9.0-44.0); LYMPHOCYTE # 1.2 TH/MM3 (1.0-4.8); MEAN CELL VOLUME 93.6 FL (80.0-100.0); MEAN CORPUSCULAR HEMOGLOBIN 30.3 PG (27.0-34.0); MEAN CORPUSCULAR HGB CONC 32.4 % (32.0-36.0); MONO % 8.1 % (0.0-8.0); NEUT % 86.1 % (16.0-70.0); PLATELET COUNT 441 TH/MM3 (150-450); RED BLOOD COUNT 3.28 MIL/MM3 (4.50-5.90); RED CELL DISTRIBUTION WIDTH 15.1 % (11.6-17.2); WHITE BLOOD COUNT 21.5 TH/MM3 (4.0-11.0)
[2017-01-18 09:25] LABS: HEMO FLAGS AUTO DIFF
[2017-01-18 09:43] LABS: ALKALINE PHOSPHATASE 81 U/L (45-117); ALT (GPT) 13 U/L (12-78); ANION GAP 8 MEQ/L (5-15); AST (GOT) 11 U/L (15-37); BICARBONATE 29.3 MEQ/L (21.0-32.0); BLOOD UREA NITROGEN 34 MG/DL (7-18); CHLORIDE 113 MEQ/L (98-107); GLOMERULAR FILTRATION RATE 39 ML/MIN (>89); POTASSIUM 3.4 MEQ/L (3.5-5.1); SODIUM (NA) 150 MEQ/L (136-145); TOTAL BILIRUBIN ADULT 0.4 MG/DL (0.2-1.0)
[2017-01-18 10:14] LABS: BANDS 10 % (0-6); MYELOCYTES 1 % (0-0); NEUTROPHIL # MANUAL DIFF 17.4 TH/MM3 (1.8-7.7); POLYS (SEG NEUTROPHILS) 70 % (16-70); WBC DIFF SAMPLE 100
[2017-01-18 10:15] LABS: OVALOCYTES 1+ (NORMAL); PLATELET ESTIMATE SMEAR NORMAL (NORMAL); PLATELET MORPHOLOGY NORMAL (NORMAL); SCAN/DIFF FINAL DIFF MANUAL; TOXIC GRANULATION 1+ (NORMAL)
[2017-01-18] MEDS ORDERED: POTASSIUM CHLOR 20 MEQ PREMIX 100 ML IV ONE (10:45)
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
[2017-01-18] MEDS ORDERED: ENOXAPARIN SODIUM 40 MG/0.4 ML SYRINGE SQ SCH (11:00)
[2017-01-18] MEDS ORDERED: VANCOMYCIN 1,500 MG/NS 500 ML IV ONE ×2 (12:00)
[2017-01-18] MEDS: MIDAZOLAM 100 MG/NS 100 ML DRIP Premix IV SCH (23:45)
[2017-01-19] VITALS (21 sets, daily range): BP systolic 123–173; BP diastolic 67–100; PULSE 56–89; RESP 20–25; TEMP 98.2–99.1; O2SAT 96–100
[2017-01-19] MEDS: metroNIDAZOLE 500 MG INJ 100 ML IV SCH ×4 (03:07→20:48)
[2017-01-19] MEDS: FREE WATER G-TUBE SCH ×5 (03:07→20:00)
[2017-01-19] MEDS: CHLORHEXIDINE GLUCONATE 2 % 1 PACK (2 CLOTHS) TOP SCH (03:08)
[2017-01-19] MEDS: LACTATED RINGER'S 1000 ML INJ 1,000 ML IV SCH (03:09)
[2017-01-19 04:04] LABS: AUTOMATED NEUTROPHIL # 20.5 TH/MM3 (1.8-7.7); BASOPHIL % 0.1 % (0.0-2.0); EOSINOPHIL % 0.1 % (0.0-4.0); HEMATOCRIT 26.5 % (39.0-51.0); LYMPH % 3.6 % (9.0-44.0); LYMPHOCYTE # 0.8 TH/MM3 (1.0-4.8); MEAN CELL VOLUME 93.6 FL (80.0-100.0); MEAN CORPUSCULAR HEMOGLOBIN 33.1 PG (27.0-34.0); MEAN CORPUSCULAR HGB CONC 35.4 % (32.0-36.0); MONO % 4.4 % (0.0-8.0); NEUT % 91.8 % (16.0-70.0); PLATELET COUNT 393 TH/MM3 (150-450); RED BLOOD COUNT 2.83 MIL/MM3 (4.50-5.90); RED CELL DISTRIBUTION WIDTH 15.5 % (11.6-17.2); WHITE BLOOD COUNT 22.3 TH/MM3 (4.0-11.0)
[2017-01-19 04:06] LABS: HEMO FLAGS AUTO DIFF
[2017-01-19 04:11] LABS: ALT (GPT) 12 U/L (12-78); ANION GAP 8 MEQ/L (5-15); AST (GOT) 12 U/L (15-37); BICARBONATE 29.6 MEQ/L (21.0-32.0); BLOOD UREA NITROGEN 34 MG/DL (7-18); CHLORIDE 112 MEQ/L (98-107); GLOMERULAR FILTRATION RATE 41 ML/MIN (>89); POTASSIUM 3.8 MEQ/L (3.5-5.1); SODIUM (NA) 150 MEQ/L (136-145)
[2017-01-19 04:14] LABS: ALKALINE PHOSPHATASE 70 U/L (45-117); TOTAL BILIRUBIN ADULT 0.4 MG/DL (0.2-1.0)
[2017-01-19] MEDS: METOPROLOL TARTRATE 25 MG TAB PO SCH ×3 (05:13→17:37)
[2017-01-19] MEDS: PIPERACIL-TAZO 2.25 GM PREMIX 50 ML IV SCH ×3 (05:13→17:00)
[2017-01-19 05:14] LABS: BANDS 10 % (0-6); METAMYELOCYTES 1 % (0-1); NEUTROPHIL # MANUAL DIFF 20.5 TH/MM3 (1.8-7.7); PLATELET ESTIMATE SMEAR NORMAL (NORMAL); PLATELET MORPHOLOGY NORMAL (NORMAL); POLYS (SEG NEUTROPHILS) 81 % (16-70); SCAN/DIFF FINAL DIFF MANUAL; WBC DIFF SAMPLE 100
[2017-01-19] MEDS: INSULIN NovoLIN REGULAR SUPPLEMENTAL SCALE SQ SCH ×4 (05:14→23:58)
[2017-01-19 05:15] LABS: TOXIC GRANULATION 1+ (NORMAL)
--- NOTE | 2017-01-19 05:44 | RADRPT ---
EXAM DATE/TIME: 01/19/2017 04:07 [facility] COMPARISON: CHEST SINGLE AP, January 17, 2017, 5:28. INDICATIONS : Shortness of breath, possible pulmonary disease. MEDICAL HISTORY : Hypertension. SURGICAL HISTORY : None. ENCOUNTER: Subsequent ACUITY: 3 weeks PAIN SCORE: Non-responsive. LOCATION: Bilateral chest FINDINGS: A single view of the chest demonstrates moderate right and small left pleural effusions. Bibasilar de nsities. Tracheostomy tube, nasogastric tube and left jugular central line are stable in position. Bi lateral rib fractures again seen. CONCLUSION: Bilateral pleural effusions and bibasilar densities greater on the right. Aamir Diamond MD on January 19, 2017 at 5:41 Board Certified Radiologist. This report was verified electronically.
[2017-01-19] MEDS ORDERED: BUMETANIDE INJ 1 MG/4 ML VIAL IV PUSH ONE (08:30)
[2017-01-19] MEDS: BENEPROTEIN POWDER 1 PACK G-TUBE SCH ×3 (09:00→17:37)
[2017-01-19] MEDS: BACITRACIN TOP OINT 15 GM TUBE TOP SCH ×2 (09:00→20:49)
[2017-01-19] MEDS: MICAFUNGIN INJ 100 MG in SODIUM CHLORIDE 0.9% INJ 100 ML IV SCH (09:51)
[2017-01-19] MEDS: DIGOXIN 0.5 MG/2 ML VIAL IV PUSH SCH (09:51)
[2017-01-19] MEDS: HYDROCORTISONE SOD SUCCINATE 100 MG VIAL IV PUSH SCH (09:51)
[2017-01-19] MEDS: FAMOTIDINE 20 MG/2 ML VIAL IV PUSH SCH ×2 (09:52→20:48)
[2017-01-19] MEDS: FOLIC ACID 1 MG TAB PEG SCH (09:52)
[2017-01-19] MEDS: VALPROIC ACID SYRUP 250 MG/5 ML UDC PO SCH ×2 (09:52→20:48)
[2017-01-19] MEDS: CHLORHEXIDINE 0.12% (ORAL KIT) 15 ML CUP MT SCH ×2 (09:53→20:49)
[2017-01-19] MEDS: AMIODARONE 200 MG TAB PO SCH ×2 (09:53→20:48)
[2017-01-19] MEDS: BISACODYL 10 MG SUPP RECTAL SCH (09:53)
[2017-01-19] MEDS: SODIUM CHLORIDE 0.9% FLUSH 10 ML FLUSH IV FLUSH SCH ×2 (09:54→20:48)
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
[2017-01-19] MEDS: fentaNYL DRIP 250 ML IV SCH (13:37)
[2017-01-19] MEDS ORDERED: LIDOCAINE 1%/EPINEPHrine 1:100,000 SOLN 20 ML VIAL ONE (14:15)
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
[2017-01-19 21:39] LABS: HEMATOCRIT 28.3 % (39.0-51.0); REVIEW FLAG FINAL
[2017-01-19 21:50] LABS: APTT (PATIENT) 29.4 SEC (24.3-30.1); INTERNATIONAL NORMALIZED RATIO 1.3 RATIO
[2017-01-20] VITALS (18 sets, daily range): BP systolic 134–159; BP diastolic 65–98; PULSE 59–134; RESP 20–23; TEMP 98.6–100.3; O2SAT 94–100
[2017-01-20] MEDS: METOPROLOL TARTRATE 25 MG TAB PO SCH ×5 (00:04→23:59)
[2017-01-20] MEDS: PIPERACIL-TAZO 2.25 GM PREMIX 50 ML IV SCH ×5 (00:04→22:57)
[2017-01-20] MEDS: metroNIDAZOLE 500 MG INJ 100 ML IV SCH ×4 (01:37→20:56)
[2017-01-20 03:32] LABS: AUTOMATED NEUTROPHIL # 14.7 TH/MM3 (1.8-7.7); BASOPHIL % 0.2 % (0.0-2.0); EOSINOPHIL # 0.1 TH/MM3 (0-0.4); EOSINOPHIL % 0.4 % (0.0-4.0); HEMATOCRIT 24.1 % (39.0-51.0); LYMPH % 5.1 % (9.0-44.0); LYMPHOCYTE # 0.9 TH/MM3 (1.0-4.8); MEAN CELL VOLUME 94.6 FL (80.0-100.0); MEAN CORPUSCULAR HEMOGLOBIN 31.2 PG (27.0-34.0); MONO % 7.4 % (0.0-8.0); NEUT % 86.9 % (16.0-70.0); PLATELET COUNT 370 TH/MM3 (150-450); RED BLOOD COUNT 2.55 MIL/MM3 (4.50-5.90); RED CELL DISTRIBUTION WIDTH 15.4 % (11.6-17.2); WHITE BLOOD COUNT 16.9 TH/MM3 (4.0-11.0)
[2017-01-20 03:37] LABS: HEMO FLAGS AUTO DIFF
[2017-01-20] MEDS: CHLORHEXIDINE GLUCONATE 2 % 1 PACK (2 CLOTHS) TOP SCH (04:00)
[2017-01-20] MEDS: FREE WATER G-TUBE SCH ×6 (04:00→22:57)
[2017-01-20 04:05] LABS: BICARBONATE 30.5 MEQ/L (21.0-32.0); CALCIUM-PROTEIN CORRECTED 9.2 MG/DL (8.5-10.1); POTASSIUM 3.6 MEQ/L (3.5-5.1); TOTAL BILIRUBIN ADULT 0.3 MG/DL (0.2-1.0)
[2017-01-20] MEDS: INSULIN NovoLIN REGULAR SUPPLEMENTAL SCALE SQ SCH ×4 (05:21→23:59)
[2017-01-20] MEDS ORDERED: PHARMACY ORDERED LAB ONE (06:00)
--- NOTE | 2017-01-20 06:37 | RADRPT ---
EXAM DATE/TIME: 01/20/2017 05:43 [facility] COMPARISON: CHEST SINGLE AP, January 19, 2017, 4:07. INDICATIONS : Shortness of breath. MEDICAL HISTORY : Hypertension. SURGICAL HISTORY : None. ENCOUNTER: Subsequent ACUITY: 3 weeks PAIN SCORE: Non-responsive. LOCATION: Bilateral chest FINDINGS: A single view of the chest demonstrates right-sided small caliber chest tube in the right lower hemit horax. Significant decrease in pleural-parenchymal density throughout the right lung. Left basilar pl eural-parenchymal density persists. Rib fractures are again seen. Tracheostomy tube and nasogastric u nchanged. The cardiomediastinal contours are unremarkable. Rib fractures again seen bilaterally. CONCLUSION: 1. Significant decrease in pleural-parenchymal density status post chest tube placement on the right. No pneumothorax. 2. Left basilar pleural-parenchymal density likely a small pleural effusion and left basilar atelecta sis. Aamir Diamond MD on January 20, 2017 at 6:33 Board Certified Radiologist. This report was verified electronically.
[2017-01-20 07:11] LABS: BANDS 7 % (0-6); METAMYELOCYTES 1 % (0-1); NEUTROPHIL # MANUAL DIFF 14.9 TH/MM3 (1.8-7.7); POLYS (SEG NEUTROPHILS) 80 % (16-70); WBC DIFF SAMPLE 100
[2017-01-20 07:12] LABS: PLATELET ESTIMATE SMEAR NORMAL (NORMAL); PLATELET MORPHOLOGY NORMAL (NORMAL); SCAN/DIFF FINAL DIFF MANUAL
--- NOTE | 2017-01-20 08:06 | RADRPT ---
EXAM DATE/TIME: 01/19/2017 15:00 INDICATIONS : Right pleural effusion and ventilator dependent. DEVICE(S): 1.) 10 Fr David Total volume of100 cc of cloudy, red fluid was removed. Fluid was sent for laboratory ordered studies. MEDICAL HISTORY : Hypertension. Renal calculi. SURGICAL HISTORY : None. ENCOUNTER: Initial ACUITY: 1 day PAIN SCORE: Non-responsive LOCATION: chest PROCEDURE : 1. CT guided chest tube placement. 2. Conscious sedation with continuous EKG and oximetry monitoring. The risks, benefits and alternatives to the procedure were explained and verbal and written consent w as obtained. The site was prepped in sterile fashion. Full sterile technique was used, including ca p, mask, sterile gloves and gown and a large sterile sheet. Hand hygiene and 2% chlorhexidine and/or betadine/alcohol prep was utilized per protocol for cutaneous antisepsis. The skin and subcutaneous tissues were infiltrated with local anesthetic solution. Using automated exposure control and adjus tment of the mA and/or kV according to patient size, radiation dose was kept as low as reasonably ach ievable to obtain optimal diagnostic quality images. With CT guidance the right chest wall was accessed and a catheter placed in the posterior inferior de pendent pleural space. Wall suction was applied. Post procedure images demonstrate satisfactory posi tion of the tube. The catheter was sutured in place and a sterile dressing was applied. Immediately, approximately 100 cc of cloudy red fluid was removed. Conscious sedation was performed with the prescribed dosages and duration as above. The patient luis manuel ated the procedure well and there were no complications. EKG and oximetry remained stable throughout the procedure. The patient was sent to post anesthesia recovery in stable condition. CONCLUSION: Uncomplicated right chest tube placement as above. Brian Hammer MD on January 20, 2017 at 8:02 Board Certified Radiologist. This report was verified electronically.
--- NOTE | 2017-01-20 08:11 | RADRPT ---
EXAM DATE/TIME: 01/19/2017 15:00 [facility] COMPARISON: CT ABDOMEN & PELVIS W/O CONTRAST, January 16, 2017, 15:19. INDICATIONS : Abdominal fluid collection following PEG tube leak. Patient has increasing white blood cell count. DEVICE(S): 1.) 12 Fr Skater FLUID: Total volume of 75 cc of cloudy, yellow fluid was removed. Fluid was sent for laboratory ordered studies. MEDICAL HISTORY : Hypertension. Renal calculi. SURGICAL HISTORY : None. ENCOUNTER: Initial ACUITY: 1 day PAIN SCORE: Non-responsive LOCATION: Right Abdomen PROCEDURE: PROCEDURE : 1. CT guided drainage of the right upper quadrant fluid collection. 2. Conscious sedation with continuous EKG and oximetry monitoring. The risks, benefits and alternatives to the procedure were explained and verbal and written consent w as obtained. Using automated exposure control and adjustment of the mA and/or kV according to patient size, radiation dose was kept as low as reasonably achievable to obtain optimal diagnostic quality i mages. The site was prepped in sterile fashion. Full sterile technique was used, including cap, ma sk, sterile gloves and gown and a large sterile sheet. Hand hygiene and 2% chlorhexidine and/or beta dine/alcohol prep was utilized per protocol for cutaneous antisepsis. The skin and subcutaneous tiss ues were infiltrated with local anesthetic solution. Using CT guidance the right upper quadrant fluid collection was localized. Drainage was performed us ing the prescribed catheter The patient tolerated the procedure well and there were no complications. Conscious sedation was per formed with the prescribed dosages and duration as above in the presence of an independent trained ra diology nurse to assist in the monitoring of the patient. EKG and oximetry remained stable throughou t the procedure. The patient tolerated the procedure well and there were no complications. The patient was sent to pos t anesthesia recovery in stable condition. CONCLUSION: Uncomplicated CT guided drainage of the right upper quadrant fluid collection. Brian Hammer MD on January 20, 2017 at 8:04 Board Certified Radiologist. This report was verified electronically.
[2017-01-20] MEDS: BENEPROTEIN POWDER 1 PACK G-TUBE SCH ×3 (09:00→18:00)
[2017-01-20] MEDS: BACITRACIN TOP OINT 15 GM TUBE TOP SCH ×2 (09:00→20:57)
[2017-01-20] MEDS ORDERED: FUROSEMIDE 20 MG/2 ML VIAL IV PUSH SCH (09:00)
[2017-01-20] MEDS: VALPROIC ACID SYRUP 250 MG/5 ML UDC PO SCH ×2 (09:21→20:57)
[2017-01-20] MEDS: HYDROCORTISONE SOD SUCCINATE 100 MG VIAL IV PUSH SCH (09:22)
[2017-01-20] MEDS: DIGOXIN 0.5 MG/2 ML VIAL IV PUSH SCH (09:23)
[2017-01-20] MEDS: MICAFUNGIN INJ 100 MG in SODIUM CHLORIDE 0.9% INJ 100 ML IV SCH (09:23)
[2017-01-20] MEDS: BISACODYL 10 MG SUPP RECTAL SCH (09:23)
[2017-01-20] MEDS: AMIODARONE 200 MG TAB PO SCH ×2 (09:23→21:08)
[2017-01-20] MEDS: FOLIC ACID 1 MG TAB PEG SCH (09:23)
[2017-01-20] MEDS: CHLORHEXIDINE 0.12% (ORAL KIT) 15 ML CUP MT SCH ×2 (09:24→20:56)
[2017-01-20] MEDS: FAMOTIDINE 20 MG/2 ML VIAL IV PUSH SCH ×2 (09:24→20:56)
[2017-01-20] MEDS: SODIUM CHLORIDE 0.9% FLUSH 10 ML FLUSH IV FLUSH SCH ×2 (10:44→20:56)
[2017-01-20] MEDS ORDERED: VANCOMYCIN 1,500 MG/NS 500 ML IV ONE ×2 (11:00)
[2017-01-20] MEDS ORDERED: NOVORP2 SQ (11:18)
[2017-01-20] MEDS ORDERED: VALP250S2 PO (11:18)
[2017-01-20] MEDS ORDERED: METO25TA3 PO (11:18)
[2017-01-20] MEDS ORDERED: AMIO200T PO (11:18)
[2017-01-20] MEDS ORDERED: ENOX30P SQ (11:18)
[2017-01-20] MEDS ORDERED: [UNRECOGNIZED DRUG - CODE] IV PUSH (11:18)
[2017-01-20] MEDS ORDERED: WATE10P G-TUBE (11:18)
[2017-01-20] MEDS ORDERED: [UNRECOGNIZED DRUG - CODE] IV PUSH (11:18)
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
[2017-01-20] MEDS ORDERED: HYDR100P IV PUSH (11:46)
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
[2017-01-20] MEDS: ENOXAPARIN SODIUM 30 MG/0.3 ML SYRINGE SQ SCH (20:57)
[2017-01-20] MEDS: fentaNYL DRIP 250 ML IV SCH (22:46)
[2017-01-21] VITALS (17 sets, daily range): BP systolic 135–169; BP diastolic 71–92; PULSE 72–102; RESP 21–24; TEMP 99–100.6; O2SAT 97–100
[2017-01-21] MEDS: metroNIDAZOLE 500 MG INJ 100 ML IV SCH ×2 (02:28→09:33)
[2017-01-21] MEDS: FREE WATER G-TUBE SCH ×4 (04:52→16:00)
[2017-01-21] MEDS: CHLORHEXIDINE GLUCONATE 2 % 1 PACK (2 CLOTHS) TOP SCH (04:52)
[2017-01-21 05:05] LABS: AUTOMATED NEUTROPHIL # 19.9 TH/MM3 (1.8-7.7); BASOPHIL % 0.2 % (0.0-2.0); EOSINOPHIL % 0.1 % (0.0-4.0); HEMATOCRIT 27.8 % (39.0-51.0); LYMPH % 3.6 % (9.0-44.0); LYMPHOCYTE # 0.8 TH/MM3 (1.0-4.8); MEAN CELL VOLUME 94.1 FL (80.0-100.0); MEAN CORPUSCULAR HGB CONC 32.9 % (32.0-36.0); MONO % 8.2 % (0.0-8.0); NEUT % 87.9 % (16.0-70.0); PLATELET COUNT 464 TH/MM3 (150-450); RED BLOOD COUNT 2.95 MIL/MM3 (4.50-5.90); RED CELL DISTRIBUTION WIDTH 15.5 % (11.6-17.2); WHITE BLOOD COUNT 22.7 TH/MM3 (4.0-11.0)
[2017-01-21 05:08] LABS: HEMO FLAGS AUTO DIFF
[2017-01-21 05:48] LABS: ALT (GPT) 13 U/L (12-78); ANION GAP 7 MEQ/L (5-15); AST (GOT) 13 U/L (15-37); BICARBONATE 33.5 MEQ/L (21.0-32.0); BLOOD UREA NITROGEN 28 MG/DL (7-18); CHLORIDE 112 MEQ/L (98-107); GLOMERULAR FILTRATION RATE 41 ML/MIN (>89); POTASSIUM 3.2 MEQ/L (3.5-5.1); SODIUM (NA) 152 MEQ/L (136-145)
[2017-01-21 05:51] LABS: ALKALINE PHOSPHATASE 82 U/L (45-117); TOTAL BILIRUBIN ADULT 0.4 MG/DL (0.2-1.0)
[2017-01-21] MEDS: INSULIN NovoLIN REGULAR SUPPLEMENTAL SCALE SQ SCH (06:00)
[2017-01-21] MEDS: PIPERACIL-TAZO 2.25 GM PREMIX 50 ML IV SCH ×3 (06:10→16:01)
[2017-01-21] MEDS: METOPROLOL TARTRATE 25 MG TAB PO SCH ×3 (06:17→18:00)
[2017-01-21] MEDS: POTASSIUM CHLOR 20 MEQ PREMIX 100 ML IV PRN ×2 (06:41→09:33)
[2017-01-21 07:19] LABS: BANDS 7 % (0-6); EOSINOPHILS 1 % (0-4); METAMYELOCYTES 1 % (0-1); NEUTROPHIL # MANUAL DIFF 20.9 TH/MM3 (1.8-7.7); POLYS (SEG NEUTROPHILS) 84 % (16-70); WBC DIFF SAMPLE 100
[2017-01-21 07:20] LABS: PLATELET ESTIMATE SMEAR HIGH (NORMAL)
[2017-01-21 07:21] LABS: PLATELET MORPHOLOGY NORMAL (NORMAL); SCAN/DIFF FINAL DIFF MANUAL
[2017-01-21] MEDS: BACITRACIN TOP OINT 15 GM TUBE TOP SCH (09:00)
[2017-01-21] MEDS ORDERED: HYDROCORTISONE SOD SUCCINATE 100 MG VIAL IV PUSH SCH (09:00)
[2017-01-21] MEDS: VALPROIC ACID SYRUP 250 MG/5 ML UDC PO SCH (09:00)
[2017-01-21] MEDS: BENEPROTEIN POWDER 1 PACK G-TUBE SCH ×3 (09:00→18:00)
[2017-01-21] MEDS: FAMOTIDINE 20 MG/2 ML VIAL IV PUSH SCH (09:32)
[2017-01-21] MEDS: DIGOXIN 0.5 MG/2 ML VIAL IV PUSH SCH (09:33)
[2017-01-21] MEDS: MICAFUNGIN INJ 100 MG in SODIUM CHLORIDE 0.9% INJ 100 ML IV SCH (09:33)
[2017-01-21] MEDS: SODIUM CHLORIDE 0.9% FLUSH 10 ML FLUSH IV FLUSH SCH (09:33)
[2017-01-21] MEDS: ENOXAPARIN SODIUM 30 MG/0.3 ML SYRINGE SQ SCH (09:34)
[2017-01-21] MEDS: AMIODARONE 200 MG TAB PO SCH (09:35)
[2017-01-21] MEDS: FOLIC ACID 1 MG TAB PEG SCH (09:35)
[2017-01-21] MEDS: BISACODYL 10 MG SUPP RECTAL SCH (09:35)
[2017-01-21] MEDS: CHLORHEXIDINE 0.12% (ORAL KIT) 15 ML CUP MT SCH (09:35)
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
[2017-01-21] MEDS ORDERED: LORazepam 2 MG/ML VIAL IV PRN (19:00)
== END 2017-01-21 20:20 | DRG 3 ==
LOC: NEPI 14:13 → NEDA 14:42 → EDBD 14:42 → N03A 14:54
PROVIDERS: ADMIT Surgery Trauma Surgery; ATTEND Surgery Trauma Surgery
PROC: 5A1955Z Respiratory Ventilation, Greater than 96 Consecutive Hours (ICD-10-PCS; 2016-12-27)
PROC: 03HY32Z Insertion of Monitoring Device into Upper Artery, Percutaneous Approach (ICD-10-PCS; 2016-12-27)
PROC: 0BH17EZ Insertion of Endotracheal Airway into Trachea, Via Natural or Artificial Opening (ICD-10-PCS; 2016-12-27)
PROC: 02HV33Z Insertion of Infusion Device into Superior Vena Cava, Percutaneous Approach (ICD-10-PCS; 2016-12-27)
PROC: B544ZZA Ultrasonography of Left Jugular Veins, Guidance (ICD-10-PCS; 2016-12-27)
PROC: 0BCB8ZZ Extirpation of Matter from Left Lower Lobe Bronchus, Via Natural or Artificial Opening Endoscopic (ICD-10-PCS; 2016-12-28)
PROC: 0BC88ZZ Extirpation of Matter from Left Upper Lobe Bronchus, Via Natural or Artificial Opening Endoscopic (ICD-10-PCS; 2016-12-28)
PROC: 0BC78ZZ Extirpation of Matter from Left Main Bronchus, Via Natural or Artificial Opening Endoscopic (ICD-10-PCS; 2016-12-28)
PROC: 0B958ZX Drainage of Right Middle Lobe Bronchus, Via Natural or Artificial Opening Endoscopic, Diagnostic (ICD-10-PCS; 2016-12-28)
PROC: 0B948ZX Drainage of Right Upper Lobe Bronchus, Via Natural or Artificial Opening Endoscopic, Diagnostic (ICD-10-PCS; 2016-12-28)
PROC: 009630Z Drainage of Cerebral Ventricle with Drainage Device, Percutaneous Approach (ICD-10-PCS; 2017-01-03)
PROC: 00P Central Nervous System and Cranial Nerves, Removal (ICD-10-PCS; 2017-01-03)
PROC: 0BH17EZ Insertion of Endotracheal Airway into Trachea, Via Natural or Artificial Opening (ICD-10-PCS; 2017-01-03)
PROC: 0BJ08ZZ Inspection of Tracheobronchial Tree, Via Natural or Artificial Opening Endoscopic (ICD-10-PCS; 2017-01-06)
PROC: 0DH68UZ Insertion of Feeding Device into Stomach, Via Natural or Artificial Opening Endoscopic (ICD-10-PCS; 2017-01-06)
PROC: 0DB58ZX Excision of Esophagus, Via Natural or Artificial Opening Endoscopic, Diagnostic (ICD-10-PCS; 2017-01-06)
PROC: 0B113F4 Bypass Trachea to Cutaneous with Tracheostomy Device, Percutaneous Approach (ICD-10-PCS; principal; 2017-01-06 09:00)
PROC: 0B958ZX Drainage of Right Middle Lobe Bronchus, Via Natural or Artificial Opening Endoscopic, Diagnostic (ICD-10-PCS; 2017-01-09)
PROC: 02HV33Z Insertion of Infusion Device into Superior Vena Cava, Percutaneous Approach (ICD-10-PCS; 2017-01-10)
PROC: B544ZZA Ultrasonography of Left Jugular Veins, Guidance (ICD-10-PCS; 2017-01-10)
PROC: 0W9930Z Drainage of Right Pleural Cavity with Drainage Device, Percutaneous Approach (ICD-10-PCS; 2017-01-10)
PROC: 04HY32Z Insertion of Monitoring Device into Lower Artery, Percutaneous Approach (ICD-10-PCS; 2017-01-10)
PROC: 0DQ60ZZ Repair Stomach, Open Approach (ICD-10-PCS; 2017-01-11)
PROC: 0D1A0Z4 Bypass Jejunum to Cutaneous, Open Approach (ICD-10-PCS; 2017-01-11)
PROC: 3E1G78Z Irrigation of Upper GI using Irrigating Substance, Via Natural or Artificial Opening (ICD-10-PCS; 2017-01-11)
DX: S06.6X0A Traumatic subarachnoid hemorrhage without loss of consciousness, initial encounter (principal); R65.20 Severe sepsis without septic shock; N17.0 Acute kidney failure with tubular necrosis; J69.0 Pneumonitis due to inhalation of food and vomit; A41.9 Sepsis, unspecified organism; G93.40 Encephalopathy, unspecified; J15.211 Pneumonia due to Methicillin susceptible Staphylococcus aureus; E87.0 Hyperosmolality and hypernatremia; K65.9 Peritonitis, unspecified; J96.01 Acute respiratory failure with hypoxia; N17.9 Acute kidney failure, unspecified; J90 Pleural effusion, not elsewhere classified; S22.41XA Multiple fractures of ribs, right side, initial encounter for closed fracture; J44.0 Chronic obstructive pulmonary disease with (acute) lower respiratory infection; D62 Acute posthemorrhagic anemia; E46 Unspecified protein-calorie malnutrition; F01.51 Vascular dementia, unspecified severity, with behavioral disturbance; R47.01 Aphasia; I82.611 Acute embolism and thrombosis of superficial veins of right upper extremity; K94.23 Gastrostomy malfunction; K56.7 Ileus, unspecified; T85.598A Other mechanical complication of other gastrointestinal prosthetic devices, implants and grafts, initial encounter; I48.92 Unspecified atrial flutter; E87.2 Acidosis; S36.113A Laceration of liver, unspecified degree, initial encounter; S06.350A Traumatic hemorrhage of left cerebrum without loss of consciousness, initial encounter; S06.340A Traumatic hemorrhage of right cerebrum without loss of consciousness, initial encounter; I95.9 Hypotension, unspecified; S06.5X0A Traumatic subdural hemorrhage without loss of consciousness, initial encounter; I48.91 Unspecified atrial fibrillation; E83.39 Other disorders of phosphorus metabolism; I10 Essential (primary) hypertension; K21.9 Gastro-esophageal reflux disease without esophagitis; G47.33 Obstructive sleep apnea (adult) (pediatric); E78.5 Hyperlipidemia, unspecified; N40.0 Benign prostatic hyperplasia without lower urinary tract symptoms; N28.1 Cyst of kidney, acquired; E87.6 Hypokalemia; D64.9 Anemia, unspecified; R40.2410 Glasgow coma scale score 13-15, unspecified time; F32.9 Major depressive disorder, single episode, unspecified; E87.70 Fluid overload, unspecified; K22.70 Barrett's esophagus without dysplasia; J98.09 Other diseases of bronchus, not elsewhere classified; R19.7 Diarrhea, unspecified; H57.04 Mydriasis; G62.9 Polyneuropathy, unspecified; R13.10 Dysphagia, unspecified; E83.42 Hypomagnesemia; F10.129 Alcohol abuse with intoxication, unspecified; F17.200 Nicotine dependence, unspecified, uncomplicated; V28.4XXA Motorcycle driver injured in noncollision transport accident in traffic accident, initial encounter; Y73.1 Therapeutic (nonsurgical) and rehabilitative gastroenterology and urology devices associated with adverse incidents; Y92.239 Unspecified place in hospital as the place of occurrence of the external cause; Y92.410 Unspecified street and highway as the place of occurrence of the external cause; Z78.1 Physical restraint status; Z79.84 Long term (current) use of oral hypoglycemic drugs
CPT/HCPCS: 31500; 31624; 32551; 32557; 36556; 36600; 49406; 70450; 70496; 70498; 71010; 71250; 71260; 71275; 72125; 72170; 74000; 74176; 74177; 76937; 80048; 80053; 80076; 80162; 80164; 80202; 81001; 82435; 82550; 82552; 82565; 82570; 82805; 82947; 82948; 83605; 83735; 83880; 83930; 84100; 84132; 84134; 84155; 84295; 84300; 84443; 84484; 84520; 85007; 85014; 85018; 85025; 85027; 85384; 85610; 85730; 86403; 86850; 86900; 86901; 87015; 87040; 87070; 87077; 87086; 87102; 87116; 87147; 87186; 87205; 87206; 87493; 87641; 87804; 88305; 89051; 90471; 90715; 93005; 93306; 93308; 93971; 94002; 94003; 94150; 94640; 94664; 94770; 95819; 96374; A7521; C1729; C1769; C9113; C9399; J0282; J0360; J0610; J0690; J0692; J1160; J1450; J1630; J1650; J1720; J1815; J1940; J1953; J2060; J2212; J2248; J2250; J2370; J2405; J2543; J2997; J3010; J3370; J3411; J3475; J3480; J7030; J7040; J7050; J7060; J7120; L0150; L0172; P9045; Q9963; Q9967